=== PATIENT | female | born 1940 | race Caucasian/White ===

== ENCOUNTER → 2018-01-20 11:50 | Outpatient (CLI) | payer MEDICARE, OTHER, SELFPAY ==
--- NOTE | 2018-01-20 11:55 | DI.US.S_ITS ---
PROCEDURE: US PELVIC COMPLETE INDICATIONS: MASS ON CERVIX TECHNIQUE: Real-time scanning was performed of the pelvic organs, with image documentation. Additional endovaginal scanning was necessary due to incomplete visualization of the adnexal and endometrial structures by transabdominal scanning. COMPARISON: CT from 12/27/2009. FINDINGS: Transabdominal scanning: Limited scanning through the kidneys shows no hydronephrosis. No pathologic free abdominal or pelvic fluid. Endovaginal scanning: Uterus: Uterus is normal in size at cm. The endometrium measures 14 mm in combined thickness. There is a 5.5 x 2.7 x 3.3 cm mass in the endometrial canal with central areas of cystic change and internal maxillary on Doppler exam Ovaries: The ovaries are not identified and cannot be evaluated. IMPRESSION: There is a mass in the endometrial canal which correlates to the recent CT finding. It may represent a submucosal pedunculated polyp. Endometrial malignancy cannot be excluded. Metastasis at this location would be very unusual. Consider differentiation with endometrial biopsy. Dictated by: Adarsh lOiva M.D. on 01/20/2018 at 14:51 Approved by: Adarsh Oliva M.D. on 01/20/2018 at 14:58
== END ==
PROVIDERS: PCP Family Medicine; Visit Provider Internal Medicine Hematology & Oncology
DX: N88.8 Other specified noninflammatory disorders of cervix uteri (principal)
CPT/HCPCS: 76830; 76856

== ENCOUNTER 2018-03-18 10:03 | Day surgery (SDC) | payer MEDICARE, OTHER, SELFPAY ==
--- NOTE | 2018-03-18 | PATH_ITS ---
[facility] Accession Number: [id number] . 01 Material submitted: . PART A: ENDOMETRIAL POLYP PART B: ENDOMETRIAL CURETTES . 02 Diagnosis: A. Endometrial Polyp, Procedure Not Specified: Endometrial polyp with features of cystic atrophy (6.5 cm in greatest dimension); negative for glandular hyperplasia, cytologic atypia, and malignancy. . B. Endometrial Curettings: Strips of endometrial glandular epithelium with focal eosinophilic metaplasia; negative for glandular hyperplasia, cytologic atypia, and malignancy. Avulsed portions of metaplastic squamous mucosa; negative for squamous dysplasia and malignancy. Scant endocervical tissue with reactive features; negative for glandular dysplasia and malignancy. [facility]/03/21/2018 . 02 Electronically signed: . Elisa Givens MD, Pathologist NPI- [id number] . 01 Gross description: . (A) Received in formalin, labeled endometrial polyp, is a nguyen-white, rubbery polyp (6.5 x 4.0 x 1.2 cm). The apparent resection margin is inked black. Entirely submitted in cassettes A1-A9. (B) Received in formalin, labeled endometrial curettings, are multiple fragments of red-brown tissue (1.2 x 0.9 x 0.1 cm in aggregate). Filtered an entirely submitted in cassette B1. ([id number]) /FRR . 02 Pathologist provided ICD-10: N84.0 . 02 CPT . 718155, [id number] Performed at: 01 [facility] [address], [place], [place] [id number] MD Dave Elizondo MD Phone: [phone] Performed at: 02 [facility] [address] [place] [id number] MD Josef Owens MD Phone: [phone]
[2018-03-18 10:36] VITALS: BMI 22.8
[2018-03-18 11:18] VITALS: BP 136/80; PULSE 82; RESP 16; TEMP 35.9; O2SAT 96
[2018-03-18] MEDS: LACTATED RINGERS 1,000 ML 42 ML IV (11:22)
[2018-03-18] MEDS: CEFOTETAN 2 GM/50 ML PIGGYBACK IV (12:19)
--- NOTE | 2018-03-18 12:45 | SUR.OPER ---
Lithotomy on padded OR bed, head on pillow, arms secured on padded arm boards at <90 degrees abduction. Legs secured in padded yellow fins stirrups.
[2018-03-18 12:53] VITALS: BP 121/67; PULSE 62; RESP 20; TEMP 36.3; O2SAT 99
[2018-03-18 12:58] VITALS: BP 127/56; PULSE 62; RESP 17; TEMP 36.3; O2SAT 98
--- NOTE | 2018-03-18 12:58 | PM.GYNOP.1 ---
Operative Date/Time/Diagnoses Date of procedure: 03/18/18 Time of procedure: 12:58 Pre-op diagnosis: Endometrial mass Post-op diagnosis: same (Endometrial polyp) Procedure: Procedures Operation Date: 03/18/18 11:30 Actual Procedures Side Surgeon p Hysteroscopy D&C, Polypectomy Chad Flores MD Indications: Endometrial mass on ultrasound Surgeon: Chad Flores Anesthesia Type: General Operative Notes Findings: Large 5 cm x 3 cm area by 3 cm endometrial polyp with some areas of firmness Closure Type: not applicable Specimen(s): endometrial polyp Estimated blood loss (mL): 0 Blood products transfused: none Procedure in detail: The patient was placed supine upon the operating table and anesthetized. She was then placed in the dorsal lithotomy position and examined under anesthesia. Under anesthesia she has felt of a small anterior uterus. The patient was then draped and prepared in the usual fashion. A posterior weighted retractor was set in place in the anterior lip of the cervix grasped with a toothed tenaculum. Uterine cervix was dilated initially with a green dilator. It was then dilated to Hegar 11. Without difficulty. The hysteroscope was placed. A large endometrial polyp was easily visualized. Photographs were taken. The polyp was grasped and slowly extra extruded from the endometrial cavity with a twisting action. This was sent for pathologic exam. A curettage was then performed. Re hysteroscopy showed no remaining tissue of any kind. The patient tolerated the procedure well and was taken to the recovery room in satisfactory condition. Complications: none Post-operative Condition: stable Disposition: PACU Plan for aftercare: Home
[2018-03-18 13:03] VITALS: BP 128/69; PULSE 61; RESP 16; TEMP 36.3; O2SAT 99
[2018-03-18 13:10] VITALS: BP 133/81; PULSE 61; RESP 16; TEMP 36.3; O2SAT 98
[2018-03-18 13:40] VITALS: BP 127/67; PULSE 52; RESP 16; TEMP 36.6; O2SAT 99
== END 2018-03-18 13:58 | disposition home or self-care (01) ==
PROVIDERS: PCP Family Medicine
PROC: 0UDB8ZZ Extraction of Endometrium, Via Natural or Artificial Opening Endoscopic (ICD-10-PCS; CPT 58558; principal; 2018-03-18 11:30)
DX: N84.0 Polyp of corpus uteri (principal); E11.9 Type 2 diabetes mellitus without complications; I10 Essential (primary) hypertension
CPT/HCPCS: 58558; 88305; J1100; J2250; J2405; J2704; J3010

== ENCOUNTER → 2018-03-23 07:56 | Outpatient (CLI) | payer MEDICARE, OTHER, SELFPAY ==
--- NOTE | 2018-03-23 08:51 | DI.CT.S_ITS ---
PROCEDURE: CT CHEST ABD PEL W CON INDICATIONS: restaging TECHNIQUE: After the administration of oral and intravenous contrast, 5 mm thick sections acquired from the lung apices to the symphysis. 5 mm coronal and sagittal reformats were performed, with additional 7 mm coronal MIP reformats through the lungs. For radiation dose reduction, the following was used: automated exposure control, adjustment of mA and/or kV according to patient size. COMPARISON: [facility], CT, CHEST/ABD/PEL WITH CONTRAST, 12/27/2017, 12:28. [facility], [place], PET/CT WHOLE BODY EXTENDED, 04/28/2017, 8:24. [facility], , US PELVIC COMPLETE, 01/20/2018, 12:01. FINDINGS: Image quality: Excellent. CHEST: Lungs and pleura: Severity of radiation pneumonitis in the right hemithorax is decreased. Calcified granuloma at the base of the right middle lobe is unchanged. No new pulmonary nodules. No acute airspace opacities. No pleural effusions or pneumothorax. Central and peripheral airways appear patent and normal in caliber. Mediastinum: Heart size is normal. No pericardial effusion. No recurrent right mediastinal mass or adenopathy. Thoracic aorta and central pulmonary arteries are normal in size. Esophagus is normal in caliber. Small hiatal hernia. Chest wall: Right-sided port with tip in the SVC. Left lumpectomy and axillary node resection again noted. No axillary or supraclavicular adenopathy by size criteria. Thyroid gland shows a 7 mm hypodense nodule in the right lobe, more prominent. ABDOMEN: Solid organs: Liver is normal in size and enhancement. Gallbladder is surgically absent. Biliary system is non dilated. Pancreas enhances normally. The lobulated cystic mass in the tail of pancreas measures 3.1 x 4.5 cm on current study, 2.9 x 4.7 cm on last exam. Spleen is normal in size and enhancement. No adrenal nodules. Kidneys demonstrate normal size and enhancement, without hydronephrosis. Peritoneum and bowel: Bowel loops demonstrate normal wall thickness and caliber. No free fluid or air. Nodes and vessels: No retroperitoneal or mesenteric adenopathy by size criteria. Aorta and inferior vena cava are normal in size. Miscellaneous: No ventral hernias. PELVIS: Genitourinary: Bladder wall thickness is normal. Cervical mass appears unchanged, better imaged on recent pelvic ultrasound. Miscellaneous: No inguinal hernias or adenopathy. Bones: No suspicious bony lesions. Chronic right rib fractures unchanged. No vertebral body compression fractures. IMPRESSION: 1. No evidence of recurrent right mediastinal/hilar mass lesion. No adenopathy by size criteria. Calcified granuloma right middle lobe with no new pulmonary nodules. 2. Interval decrease in degree of right-sided postradiation pneumonitis. 3. Large cystic lesion in the tail of pancreas remains stable. 4. Subcentimeter nodule in the right lobe of thyroid is more prominent, possibly related to partial volume effect. 5. Small hiatal hernia. 6. Partially cystic mass in the cervix, indeterminant. Dictated by: Kirk Lugo M.D. on 03/23/2018 at 9:45 Approved by: Kirk Lugo M.D. on 03/23/2018 at 9:59
== END ==
PROVIDERS: PCP Family Medicine; Visit Provider Internal Medicine Hematology & Oncology
DX: C34.90 Malignant neoplasm of unspecified part of unspecified bronchus or lung (principal); J70.0 Acute pulmonary manifestations due to radiation; K86.2 Cyst of pancreas; E04.1 Nontoxic single thyroid nodule; K44.9 Diaphragmatic hernia without obstruction or gangrene; N88.8 Other specified noninflammatory disorders of cervix uteri
CPT/HCPCS: 71260; 74177; Q9967

== ENCOUNTER → 2018-04-07 10:48 | Outpatient (CLI) | payer MEDICARE, OTHER, SELFPAY ==
[2018-04-07 11:06] LABS: Add Manual Diff / Slide Review NO; Basophils Percent Auto 0.1 % (0-2); Eosinophils Percent Auto 2.5 % (2-4); Hemoglobin 10.6 g/dL (12.0-16.0); Lymphocytes Percent Auto 12.7 % (25-40); Mean Corpuscular HGB Conc 33.1 % (30-36); Mean Corpuscular Hemoglobin 26.7 PG (26-34); Mean Corpuscular Volume 80.7 fL (80-100); Monocytes Percent Auto 6.5 % (3-14); Neutrophils Absolute Auto 4300 /uL (3000-5900); Neutrophils Percent Auto 78.2 % (50-75); Platelet Count 208 X10^3/uL (150-400); Red Blood Cell Count 3.97 X10^6/uL (4.0-5.2); Red Cell Distribution Width 16.7 % (11.6-14.8); White Blood Cell Count 5.4 X10^3/uL (4.5-11.0)
[2018-04-07 11:18] LABS: Alanine Aminotransferase 17 IU/L (9-52); Albumin Globulin Ratio 1.3 (1.0-2.8); Alkaline Phosphatase 61 U/L (38-126); Aspartate Aminotransferase 16 IU/L (14-36); BUN Creatinine Ratio 26.7 (6-22); Bilirubin Total 0.5 mg/dL (0.2-1.3); Blood Urea Nitrogen 16 mg/dL (7-17); Calcium 9.7 mg/dL (8.4-10.2); Carbon Dioxide 32 mmol/L (22-32); Chloride 101 mmol/L (98-107); Estimated Glomerular Filt Rate > 60.0 mL/min (>60); Globulin 3.1 g/dL (1.7-4.1); Glucose 93 mg/dL (80-110); HEMOLYSIS < 15 (0-50); Potassium 4.8 mmol/L (3.4-5.1); Sodium 143 mmol/L (137-145); Total Protein 7.1 g/dL (6.3-8.2)
[2018-04-07 11:48] LABS: Thyroid Stimulating Hormone 7.43 uIU/mL (0.47-4.68)
[2018-04-07 11:54] LABS: T4 Total Thyroxine 7.69 ug/dL (5.5-11.0)
== END ==
PROVIDERS: PCP Family Medicine; Visit Provider Internal Medicine Hematology & Oncology
DX: C34.90 Malignant neoplasm of unspecified part of unspecified bronchus or lung (principal)
CPT/HCPCS: 36415; 80053; 84436; 84443; 85025

== ENCOUNTER → 2018-10-14 09:59 | Outpatient (CLI) | payer MEDICARE, OTHER, SELFPAY ==
--- NOTE | 2018-10-14 10:39 | DI.CT.S_ITS ---
PROCEDURE: CT CHEST ABD PEL W CON INDICATIONS: Restaging non small cell lung cancer TECHNIQUE: After the administration of oral and intravenous contrast, 5 mm thick sections acquired from the lung apices to the symphysis. 5 mm coronal and sagittal reformats were performed, with additional 7 mm coronal MIP reformats through the lungs. For radiation dose reduction, the following was used: automated exposure control, adjustment of mA and/or kV according to patient size. COMPARISON: [facility], CT, THORAX WITH CONTRAST, 07/07/2017, 11:27. [facility], CT, CT OVIEDO, 05/04/2017, 11:03. [facility], CT, PE STUDY (CTA CHEST), 03/11/2017, 10:15. [facility], CT, CT CHEST ABD PEL W CON, 03/23/2018, 9:04. [facility], CT, CHEST/ABD/PEL WITH CONTRAST, 12/27/2017, 12:28. FINDINGS: Image quality: Excellent. CHEST: Lungs and pleura: No acute airspace opacities. There has been a slight interval reduction in the degree of radiation pneumonitis/fibrosis at the right upper lobe with reference to the recent prior studies from 2017 and 2016. No pleural effusions or pneumothorax. Central and peripheral airways appear patent and normal in caliber. Mediastinum: Heart size is normal. No pericardial effusion. No mediastinal or hilar adenopathy by size criteria. Thoracic aorta and central pulmonary arteries are normal in size. Esophagus is normal in caliber. There is a small sliding hiatal hernia. Chest wall: No axillary or supraclavicular adenopathy by size criteria. Thyroid gland is again seen to contain a small cyst at the right mid thyroid lobe, stable over time. No solid thyroid nodule is present. ABDOMEN: Solid organs: Liver is normal in size and enhancement. Gallbladder has been previously resected. Biliary system is non dilated. Pancreas enhances normally. Spleen is normal in size and enhancement. No adrenal nodules. Kidneys demonstrate normal size and enhancement, without hydronephrosis. Peritoneum and bowel: Bowel loops demonstrate normal wall thickness and caliber. No free fluid or air. Nodes and vessels: No retroperitoneal or mesenteric adenopathy by size criteria. Aorta and inferior vena cava are normal in size. Miscellaneous: No ventral hernias. PELVIS: Genitourinary: Bladder wall thickness is normal. Miscellaneous: No inguinal hernias or adenopathy. Mild colonic diverticulosis, without acute diverticulitis. Bones: No suspicious bony lesions. No vertebral body compression fractures. IMPRESSION: 1. 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 No recurrent mass lesion in this area or elsewhere within the chest is found. 2. Stable appearing small right thyroid nodule, no solid thyroid nodule is present. 3. There is a pattern of surgical clips indicating prior cholecystectomy. Within the abdomen and pelvis no metastatic disease is found. Incidental note is made of a small hiatal hernia behind the heart, previously present. 4. Mild colonic diverticulosis without acute diverticulitis. Dictated by: Yash Almaguer M.D. on 10/14/2018 at 15:59 Approved by: Yash Almaguer M.D. on 10/14/2018 at 16:05
[2018-10-14 10:42] LABS: BUN Creatinine Ratio 23.8 (6-22); Blood Urea Nitrogen 19 mg/dL (7-17); Estimated Glomerular Filt Rate > 60.0 mL/min (>60)
== END ==
PROVIDERS: Family Provider Family Medicine; PCP Family Medicine
DX: C34.90 Malignant neoplasm of unspecified part of unspecified bronchus or lung (principal); C50.912 Malignant neoplasm of unspecified site of left female breast; E04.1 Nontoxic single thyroid nodule; K57.90 Diverticulosis of intestine, part unspecified, without perforation or abscess without bleeding; K44.9 Diaphragmatic hernia without obstruction or gangrene; Z90.49 Acquired absence of other specified parts of digestive tract
CPT/HCPCS: 36415; 71260; 74177; 82565; 84520; Q9967

== ENCOUNTER → 2019-04-24 11:20 | Outpatient (CLI) | payer MEDICARE, OTHER, SELFPAY ==
[2019-04-24 12:02] LABS: Add Manual Diff / Slide Review NO; Basophils Absolute Auto 0 /uL (0-100); Basophils Percent Auto 0.3 % (0-2); Eosinophils Absolute Auto 200 /uL (0-450); Eosinophils Percent Auto 4.8 % (2-4); Hematocrit 35.5 % (36-46); Hemoglobin 11.6 g/dL (12.0-16.0); Lymphocytes Absolute Auto 800 /uL (1100-4500); Lymphocytes Percent Auto 16.5 % (25-40); Mean Corpuscular HGB Conc 32.8 % (30-36); Mean Corpuscular Hemoglobin 27.4 PG (26-34); Mean Corpuscular Volume 83.7 fL (80-100); Monocytes Absolute Auto 400 /uL (0-900); Monocytes Percent Auto 7.9 % (3-14); Neutrophils Absolute Auto 3400 /uL (1500-7000); Neutrophils Percent Auto 70.5 % (50-75); Platelet Count 171 X10^3/uL (150-400); Red Blood Cell Count 4.23 X10^6/uL (4.0-5.2); Red Cell Distribution Width 15.4 % (11.6-14.8); White Blood Cell Count 4.8 X10^3/uL (4.5-11.0)
[2019-04-24 12:21] LABS: Alanine Aminotransferase 11 IU/L (9-52); Albumin 4.1 g/dL (3.5-5.0); Albumin Globulin Ratio 1.4 (1.0-2.8); Alkaline Phosphatase 86 U/L (38-126); Aspartate Aminotransferase 19 IU/L (14-36); Bilirubin Total 0.3 mg/dL (0.2-1.3); Blood Urea Nitrogen 21 mg/dL (7-17); Calcium 9.8 mg/dL (8.4-10.2); Carbon Dioxide 30 mmol/L (22-32); Chloride 104 mmol/L (98-107); Estimated Glomerular Filt Rate > 60.0 mL/min (>60); Glucose 80 mg/dL (80-110); HEMOLYSIS < 15 (0-50); Potassium 4.8 mmol/L (3.4-5.1); Sodium 141 mmol/L (137-145); Total Protein 7.1 g/dL (6.3-8.2)
--- NOTE | 2019-04-24 12:30 | DI.CT.S_ITS ---
PROCEDURE: CT CHEST ABD PEL W CON INDICATIONS: lung cancer TECHNIQUE: After the administration of oral and intravenous contrast, 5 mm thick sections acquired from the lung apices to the symphysis. 5 mm coronal and sagittal reformats were performed, with additional 7 mm coronal MIP reformats through the lungs. For radiation dose reduction, the following was used: automated exposure control, adjustment of mA and/or kV according to patient size. COMPARISON: [facility], CT, PE STUDY (CTA CHEST), 03/11/2017, 10:15. [facility], [place], PET/CT WHOLE BODY EXTENDED, 04/28/2017, 8:24. [facility], CT, THORAX WITH CONTRAST, 07/07/2017, 11:27. [facility], CT, CT CHEST ABD PEL W CON, 10/14/2018, 10:56. [facility], CT, CT CHEST ABD PEL W CON, 03/23/2018, 9:04. FINDINGS: Image quality: Excellent. CHEST: Lungs and pleura: No acute airspace opacities are seen that would indicate likelihood of underlying infection. What appears to be post radiation fibrosis is present within the right upper lobe extending inferiorly along the mediastinal border to the upper right hilum, and in this area no growing mass lesion is found. No mediastinal or hilar adenopathy has developed.. No pleural effusions or pneumothorax. Central and peripheral airways appear patent and normal in caliber. Mediastinum: Heart size is normal. No pericardial effusion. No mediastinal or hilar adenopathy by size criteria. Thoracic aorta and central pulmonary arteries are normal in size. Esophagus is normal in caliber. No hiatal hernia. Chest wall: No axillary or supraclavicular adenopathy by size criteria. Thyroid gland appears normal where well seen.. ABDOMEN: Solid organs: Liver is normal in size and enhancement. Again seen within the inferior right hepatic lobe is a subcentimeter nodule with discontinuous peripheral enhancement consistent with hemangioma. Gallbladder has been previously resected. Biliary system is non dilated. Pancreas enhances normally through the uncinate process and pancreatic head and neck. At the pancreatic body there is again noted the cystic structure that has not changed significantly from the first available CT scan showed that lesion, PET/CT scanning 04/28/[address] scanning 03/11/17. Spleen is normal in size and enhancement. No adrenal nodules. Kidneys demonstrate normal size and enhancement, without hydronephrosis. Peritoneum and bowel: Bowel loops demonstrate normal wall thickness and caliber. No free fluid or air. Nodes and vessels: No retroperitoneal or mesenteric adenopathy by size criteria. Aorta and inferior vena cava are normal in size. Miscellaneous: No ventral hernias. PELVIS: Genitourinary: Bladder wall thickness is normal. Miscellaneous: No inguinal hernias or adenopathy. Bones: No suspicious bony lesions. No vertebral body compression fractures. IMPRESSION: 1. 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 2. There has been stable appearance of a pancreatic body cystic structure that measures up to 3.6 x 3.3 cm currently and was present as early as February of 2017 measuring essentially the same size considering differences in technique. 2. Stable appearing subcentimeter hemangioma within the inferior margin of the right hepatic lobe. Dictated by: Yash Almaguer M.D. on 04/24/2019 at 16:58 Approved by: Yash Almaguer M.D. on 04/24/2019 at 17:21
== END ==
PROVIDERS: Family Provider Family Medicine; PCP Family Medicine; Visit Provider Internal Medicine Hematology & Oncology
DX: C34.90 Malignant neoplasm of unspecified part of unspecified bronchus or lung (principal); K86.2 Cyst of pancreas; D18.09 Hemangioma of other sites; Z90.49 Acquired absence of other specified parts of digestive tract
CPT/HCPCS: 36415; 71260; 74177; 80053; 85025; Q9967

== ENCOUNTER → 2019-10-16 13:16 | Outpatient (CLI) | payer MEDICARE, OTHER, SELFPAY ==
[2019-10-16 13:41] LABS: Add Manual Diff / Slide Review NO; Basophils Absolute Auto 0 /uL (0-100); Basophils Percent Auto 0.2 % (0-2); Eosinophils Absolute Auto 200 /uL (0-450); Eosinophils Percent Auto 4.1 % (2-4); Hemoglobin 11.8 g/dL (12.0-16.0); Lymphocytes Absolute Auto 1100 /uL (1100-4500); Lymphocytes Percent Auto 19.3 % (25-40); Mean Corpuscular HGB Conc 33.7 % (30-36); Mean Corpuscular Hemoglobin 28.6 PG (26-34); Mean Corpuscular Volume 84.7 fL (80-100); Monocytes Absolute Auto 600 /uL (0-900); Monocytes Percent Auto 9.9 % (3-14); Neutrophils Absolute Auto 3900 /uL (1500-7000); Neutrophils Percent Auto 66.5 % (50-75); Platelet Count 169 X10^3/uL (150-400); Red Blood Cell Count 4.13 X10^6/uL (4.0-5.2); Red Cell Distribution Width 15.5 % (11.6-14.8); White Blood Cell Count 5.9 X10^3/uL (4.5-11.0)
[2019-10-16 13:59] LABS: Alanine Aminotransferase 11 IU/L (<35); Albumin 4.3 g/dL (3.5-5.0); Albumin Globulin Ratio 1.3 (1.0-2.8); Alkaline Phosphatase 77 U/L (38-126); Aspartate Aminotransferase 21 IU/L (14-36); Bilirubin Total 0.3 mg/dL (0.2-1.3); Blood Urea Nitrogen 20 mg/dL (7-17); Calcium 9.8 mg/dL (8.4-10.2); Carbon Dioxide 29 mmol/L (22-32); Chloride 106 mmol/L (98-107); Estimated Glomerular Filt Rate > 60.0 mL/min (>60); Globulin 3.2 g/dL (1.7-4.1); Glucose 90 mg/dL (80-110); HEMOLYSIS < 15 (0-50); Sodium 142 mmol/L (137-145); Total Protein 7.5 g/dL (6.3-8.2)
[2019-10-16 14:03] LABS: Potassium 5.8 mmol/L (3.4-5.1)
== END ==
PROVIDERS: Family Provider Family Medicine; PCP Family Medicine; Referring Provider Internal Medicine Hematology & Oncology; Visit Provider Internal Medicine Hematology & Oncology
DX: C34.90 Malignant neoplasm of unspecified part of unspecified bronchus or lung (principal)
CPT/HCPCS: 36415; 80053; 85025

== ENCOUNTER → 2019-10-17 12:19 | Outpatient (CLI) | payer MEDICARE, OTHER, SELFPAY ==
--- NOTE | 2019-10-17 12:22 | DI.CT.S_ITS ---
PROCEDURE: CT CHEST ABD PEL W CON INDICATIONS: f/u lung cnacer TECHNIQUE: After the administration of oral and intravenous contrast, 5 mm thick sections acquired from the lung apices to the symphysis. 5 mm coronal and sagittal reformats were performed, with additional 7 mm coronal MIP reformats through the lungs. For radiation dose reduction, the following was used: automated exposure control, adjustment of mA and/or kV according to patient size. COMPARISON: [facility], [place], PET/CT WHOLE BODY EXTENDED, 04/28/2017, 8:24. [facility], CT, PE STUDY (CTA CHEST), 03/11/2017, 10:15. [facility], CT, CT CHEST ABD PEL W CON, 04/24/2019, 12:31. [facility], CT, CT CHEST ABD PEL W CON, 10/14/2018, 10:56. FINDINGS: Image quality: Excellent. CHEST: Lungs and pleura: No acute airspace opacities. Chronic fibrotic change at the medial right upper lobe is again noted with cylindrical bronchiectasis, consistent with prior radiation therapy into that area. No pleural effusions or pneumothorax. Central and peripheral airways appear patent and normal in caliber. Mediastinum: Heart size is normal. No pericardial effusion. No mediastinal or hilar adenopathy by size criteria. Thoracic aorta and central pulmonary arteries are normal in size. Esophagus is normal in caliber. No hiatal hernia. Chest wall: No axillary or supraclavicular adenopathy by size criteria. Thyroid gland appears normal where well seen. Right breast calcifications and left breast calcifications are again noted, left greater than right. ABDOMEN: Solid organs: Liver is normal in size and enhancement. Gallbladder has been previously resected. Biliary system is non dilated. Pancreas enhances normally except in the area of a pancreatic body mass like structure, previously documented on multiple prior CT scans since at least February of 2017. This measures up to 3.9 cm in diameter.. Spleen is normal in size and enhancement. No adrenal nodules. Kidneys demonstrate normal size and enhancement, without hydronephrosis. Peritoneum and bowel: Bowel loops demonstrate normal wall thickness and caliber. No free fluid or air. Nodes and vessels: No retroperitoneal or mesenteric adenopathy by size criteria. Aorta and inferior vena cava are normal in size. Miscellaneous: No ventral hernias. PELVIS: Genitourinary: Bladder wall thickness is normal. Miscellaneous: No inguinal hernias or adenopathy. Bones: No suspicious bony lesions. No vertebral body compression fractures. IMPRESSION: 1. 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 2. No mediastinal or hilar adenopathy. Bilateral breast calcifications are again noted, left greater than right, which presumably are being sequentially evaluated by mammography. However, from the radiology records available for review the most recent bilateral mammogram was listed as being performed 07/06/16. 3. Stable appearance of a mildly lobulated 3.9 cm mass at the pancreatic body, having been present in February of 2017 and having low isotope uptake on PET CT scanning that had been performed 04/28/17. Dictated by: Yash Almaguer M.D. on 10/17/2019 at 14:16 Approved by: Yash Almaguer M.D. on 10/17/2019 at 14:29
== END ==
PROVIDERS: Family Provider Family Medicine; PCP Family Medicine; Referring Provider Family Medicine
DX: C34.90 Malignant neoplasm of unspecified part of unspecified bronchus or lung (principal); K86.9 Disease of pancreas, unspecified; Z90.49 Acquired absence of other specified parts of digestive tract
CPT/HCPCS: 71260; 74177

== ENCOUNTER → 2019-11-09 12:03 | Outpatient (CLI) | payer MEDICARE, OTHER, SELFPAY ==
--- NOTE | 2019-11-09 12:05 | DI.MG.S_ITS ---
BILATERAL DIGITAL SCREENING MAMMOGRAM 3D/2D WITH CAD POST LUMPECTOMY: 11/09/2019 CLINICAL: Routine screening. Personal history of left breast cancer. Family history of breast cancer. Comparison is made to exams dated: 07/06/2016 mammogram, 12/27/2014 mammogram, and 12/15/2013 mammogram - [facility]. There are scattered fibroglandular elements in both breasts. Current study was also evaluated with a Computer Aided Detection (CAD) system. There are benign calcifications in both breasts. There also are benign vascular calcifications in both breasts. Additionally, there are benign post operative findings in the left breast. No significant masses, calcifications, or other findings are seen in either breast. There has been no significant interval change. IMPRESSION: There is no mammographic evidence of malignancy. A 1 year screening mammogram is recommended. This exam was interpreted at Station ID: [id number]. NOTE: For mammograms, a report in lay terms will be sent to the patient. Approximately 15% of breast malignancies will not be visualized mammographically. In the management of a palpable breast mass, a negative mammogram must not discourage biopsy of a clinically suspicious lesion. Electronically Signed By: Emili lozada/abhishek:11/09/2019 20:38:55 copy to: CHACHA PINA letter sent: Normal Exam ACR BI-RADS Category 2: Benign Finding(s) 3342F
== END ==
PROVIDERS: Family Provider Family Medicine; PCP Family Medicine; Referring Provider Internal Medicine Hematology & Oncology; Visit Provider Internal Medicine Hematology & Oncology
DX: Z12.31 Encounter for screening mammogram for malignant neoplasm of breast (principal); Z85.3 Personal history of malignant neoplasm of breast; Z80.3 Family history of malignant neoplasm of breast
CPT/HCPCS: 77063; 77067

== ENCOUNTER → 2020-05-08 13:59 | Outpatient (CLI) | payer MEDICARE, OTHER, SELFPAY ==
--- NOTE | 2020-05-08 14:01 | DI.CT.S_ITS ---
PROCEDURE: CT CHEST ABD PEL W CON INDICATIONS: lung cancer TECHNIQUE: After the administration of oral and intravenous contrast, 5 mm thick sections acquired from the lung apices to the symphysis. 5 mm coronal and sagittal reformats were performed, with additional 7 mm coronal MIP reformats through the lungs. For radiation dose reduction, the following was used: automated exposure control, adjustment of mA and/or kV according to patient size. COMPARISON: [facility], CT, CT CHEST ABD PEL W CON, 10/14/2018, 10:56. [facility], CT, CT CHEST ABD PEL W CON, 03/23/2018, 9:04. [facility], CT, CT CHEST ABD PEL W CON, 10/17/2019, 13:08. [facility], CT, CT CHEST ABD PEL W CON, 04/24/2019, 12:31. FINDINGS: Image quality: Excellent. CHEST: Lungs and pleura: No acute airspace opacities. Post radiation fibrosis is again noted at the medial right upper lobe with mild cylindrical and varicoid bronchiectasis in that area. Additionally, a densely calcified granuloma at the inferior margin of the medial segment right middle lobe is again seen, no exchange operator time. No pleural effusions or pneumothorax. Central and peripheral airways appear patent and normal in caliber. Mediastinum: Heart size is normal. No pericardial effusion. No mediastinal or hilar adenopathy by size criteria. Thoracic aorta and central pulmonary arteries are normal in size. Esophagus is normal in caliber. No hiatal hernia. Port-A-Cath from right-sided approach extends in normal position into the distal SVC. Chest wall: No axillary or supraclavicular adenopathy by size criteria. Thyroid gland appears normal where well seen. ABDOMEN: Solid organs: Liver is normal in size and enhancement. Gallbladder has been resected . Biliary system is non dilated. Pancreas enhances normally except for presence of the previously identified moderately lobulated 3.8 x 3.9 cm exophytic mid pancreatic body mass, present since March of 2017 as previously described. Spleen is normal in size and enhancement. No adrenal nodules. Kidneys demonstrate normal size and enhancement, without hydronephrosis. Peritoneum and bowel: Bowel loops demonstrate normal wall thickness and caliber. No free fluid or air. Nodes and vessels: No retroperitoneal or mesenteric adenopathy by size criteria. Aorta and inferior vena cava are normal in size. Miscellaneous: No ventral hernias. PELVIS: Genitourinary: Bladder wall thickness is normal. Miscellaneous: No inguinal hernias or adenopathy. Bones: No suspicious bony lesions. No vertebral body compression fractures. IMPRESSION: Stable appearing examination without evidence of metastatic disease or recurrent neoplasm. 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 Note is made of a pancreatic mass that has been present since March of 2017, and no new lesion has developed elsewhere. Dictated by: Yash Almaguer M.D. on 05/08/2020 at 16:52 Approved by: Yash Almaguer M.D. on 05/08/2020 at 16:59
[2020-05-08 14:17] LABS: Add Manual Diff / Slide Review NO; Basophils Absolute Auto 0 /uL (0-100); Basophils Percent Auto 0.2 % (0-2); Eosinophils Absolute Auto 300 /uL (0-450); Eosinophils Percent Auto 5.6 % (2-4); Lymphocytes Absolute Auto 1100 /uL (1100-4500); Lymphocytes Percent Auto 17.9 % (25-40); Mean Corpuscular HGB Conc 33.2 % (30-36); Mean Corpuscular Hemoglobin 27.8 PG (26-34); Mean Corpuscular Volume 83.7 fL (80-100); Monocytes Absolute Auto 400 /uL (0-900); Monocytes Percent Auto 7.4 % (3-14); Neutrophils Absolute Auto 4100 /uL (1500-7000); Neutrophils Percent Auto 68.9 % (50-75); Platelet Count 185 X10^3/uL (150-400); Red Cell Distribution Width 14.8 % (11.6-14.8); White Blood Cell Count 5.9 X10^3/uL (4.5-11.0)
[2020-05-08 14:35] LABS: Alanine Aminotransferase 10 IU/L (<35); Albumin 4.3 g/dL (3.5-5.0); Albumin Globulin Ratio 1.4 (1.0-2.8); Alkaline Phosphatase 68 U/L (38-126); Aspartate Aminotransferase 23 IU/L (14-36); BUN Creatinine Ratio 17.9 (6-22); Bilirubin Total 0.5 mg/dL (0.2-1.3); Blood Urea Nitrogen 12 mg/dL (7-17); Calcium 9.5 mg/dL (8.4-10.2); Carbon Dioxide 30 mmol/L (22-32); Chloride 105 mmol/L (98-107); Estimated Glomerular Filt Rate > 60.0 mL/min (>60); Glucose 110 mg/dL (80-110); HEMOLYSIS < 15 (0-50); Sodium 140 mmol/L (137-145); Total Protein 7.3 g/dL (6.3-8.2)
== END ==
PROVIDERS: Family Provider Family Medicine; PCP Family Medicine; Referring Provider Family Medicine; Visit Provider Internal Medicine Hematology & Oncology
DX: C34.90 Malignant neoplasm of unspecified part of unspecified bronchus or lung (principal); J70.1 Chronic and other pulmonary manifestations due to radiation; Y84.2 Radiological procedure and radiotherapy as the cause of abnormal reaction of the patient, or of later complication, without mention of misadventure at the time of the procedure
CPT/HCPCS: 36415; 71260; 74177; 80053; 85025; Q9967

== ENCOUNTER 2020-05-28 14:59 | Emergency (ER) | payer MEDICARE, OTHER, SELFPAY ==
[2020-05-28 15:34] LABS: Bacteria Urine None Seen
[2020-05-28 15:40] LABS: Culture Indicated Urine Cult Not Indicated; RBC Urine 0-1/HPF (0-5/HPF); WBC Urine 0-1/HPF (0-5/HPF)
--- NOTE | 2020-05-28 16:25 | ED.FEMALEGU ---
HPI - Female Genitourinary <Cristina ShanksTERRI - Last Filed: 05/28/20 21:37> General Chief complaint: Urogenital-Female Stated complaint: URINARY PROBLEM Time Seen by Provider: 05/28/20 15:13 Source: patient Mode of arrival: Ambulatory History of Present Illness HPI Narrative: 79yo female presents to the ED for something fell out of my vagina. Patient states last night she got up from the bed and she felt something fall out of her vagina, she went to the bathroom and notice a small white ball, she states she pushed it back. She denies any pain, discharge, bleeding, fevers chills, history of prolapse, nausea, vomiting, diarrhea, denies abdominal pain, or any other concerns. She states she has had 3 vaginal births in the past. Patient states she still feels something weird in her vagina at this time. Related Data Home Medications Medication Instructions Recorded Confirmed Fluticasone Propionate (FLONASE) 0.05 mg NS PRN PRN #0 02/01/13 11/14/19 MULTIVITAMIN (#MULTIPLE VITAMINS) 1 cap PO Q DAY #0 02/01/13 11/14/19 metformin [Glucophage] 500 mg PO BIDCC #0 02/01/13 11/14/19 acetaminophen [Tylenol Extra 500 mg PO Q4HP PRN #0 07/10/17 11/14/19 Strength] doxepin 100 mg PO HS #0 07/10/17 11/14/19 simvastatin 20 mg PO HS #0 07/10/17 11/14/19 aspirin 81 mg PO QDAY PRN #0 08/04/17 11/14/19 albuterol sulfate [Ventolin HFA] 1 puff INH Q4H PRN 01/19/18 11/14/19 Previous Rx's Medication Instructions Recorded atenolol 50 mg PO BID #90 tab 08/09/18 Allergies Allergy/AdvReac Type Severity Reaction Status Date / Time carboplatin Allergy Severe Anaphylaxis Verified 03/18/18 10:31 adhesive Allergy Intermediate RASH Verified 03/18/18 10:31 Penicillins Allergy Mild Rash Verified 03/18/18 10:32 codeine AdvReac Unknown NIGHTMARES, Verified 03/18/18 10:31 PANIC hydrocodone AdvReac Unknown NIGHTMARES, Verified 03/18/18 10:31 PANIC, VH Sulfa (Sulfonamide AdvReac Unknown NAUSEA Verified 03/18/18 10:31 Antibiotics) Review of Systems <TERRI Rosario - Last Filed: 05/28/20 21:37> Review of Systems Narrative: REVIEW OF SYSTEMS: GENERAL: Denies fever or chills. HENT: No head trauma. CARDIOVASCULAR: No chest pain. RESPIRATORY: No shortness of breath or cough. GASTROINTESTINAL: No nausea, vomiting, or abdominal pain, see HPI. GENITOURINARY: Reports dysuria, states she feels like something is in her vagina, see HPI. MUSCULOSKELETAL: No trauma. INTEGUMENTARY: No rash, lesions, or pruritus. NEURO: Unusual behavior changes. Patient History <TERRI Rosario - Last Filed: 05/28/20 21:37> Medical History Cancer of left breast (Acute) Diabetes (Acute) Hepatitis C (Acute) History of prosthetic unicompartmental arthroplasty of both knees (Acute) HTN (hypertension) (Acute) Hyperlipidemia (Acute) Left bundle branch block (LBBB) (Acute) Non-small cell lung cancer (Acute) Port-A-Cath in place (Acute) Right humeral fracture (Acute) Surgical History History of carpal tunnel release (Acute) Hx of cholecystectomy (Acute) Hx of dilation and curettage (Acute) Hx of tonsillectomy (Acute) Hx of tubal ligation (Acute) Exam <TERRI Rosario - Last Filed: 05/28/20 21:37> Initial Vital Signs Initial Vital Signs: PHYSICAL EXAMINATION: GENERAL: Well groomed, alert, and cooperative. Answers questions promptly and appropriately. Vital signs noted. HENT: Normocephalic, atraumatic. Hearing intact. Oral mucosa is pink and moist. EYES: Conjunctiva pink, sclera white, no periorbital swelling. CARDIOVASCULAR: S1 and S2 sounds normal. Regular rate and rhythm, no murmurs, clicks, or bruits. No pedal edema. RESPIRATORY: Normal respiratory rate, trachea midline, airway patent. No stridor, nasal flaring or accessory muscle use. Lungs are clear in all simmons without wheeze, rhonchi, or crackles. GASTROINTESTINAL: Bowel sounds normoactive. Abdomen is soft and non-tender. No organomegaly, no palpable masses. GENITALURINARY: No flank tenderness. Pelvic exam performed with RNKaylen present. Cervix visualized, slightly to the left. No significant prolapse palpated, a urinary prolapse visualized or palpated. No abnormal discharge, no cervical motion tenderness. MUSCULOSKELETAL: Normal gait and coordination. Equal tone and mass bilaterally. EXTREMITIES: CMS intact. SKIN: Warm, dry, soft, appropriate color for ethnicity. No lesions, rashes, or wounds to visualized areas. NEURO: Alert and Oriented X 3. Good coordination. No ataxia, or sensory deficits, or cognitive issues. PSYCH: Appropriate affect and mood. Course <TERRI Rosario - Last Filed: 05/28/20 21:37> Orders Ordered: ED Orders 05/28/20 15:25 Urine Microscopic Stat Consultations Consultation #1: Discussed plan of care with Dr. Anne. <Chad Anne MD - Last Filed: 06/25/20 03:10> Orders Ordered: ED Orders 05/28/20 15:25 Urine Microscopic Stat MDM - Female Genitourinary <TERRI Rosario - Last Filed: 05/28/20 21:37> Medical Records Attestation: I reviewed the patient's medical records. Lab Data Attestation: I reviewed the patient's lab results. Labs: Lab Results 05/28/20 Range/Units 15:25 Urine RBC 0-1/hpf (0-5/HPF) Urine WBC 0-1/hpf (0-5/HPF) Urine Bacteria None seen (None) Ur Culture Indicated? Cult not indicated Urine Dip Bedside Urine Glucose Negative Bedside Urine Bilirubin - Negative Bedside Urine Ketone - Negative Urine Specific Turney 1.030 Bedside Urine Occult Blood - Negative Bedside Urine pH 6.0 Bedside Urine Protein + 30 Bedside Urine Urobilinogen - Negative Bedside Urine Nitrite - Negative Bedside Urine Leukocytes - Negative Esterase MDM Narrative Medical decision making narrative: History and examination initial concerning for prolapse, no prolapse seen or felt on examination. However due to patient's complaint, she was referred to vending machine host/hostess for further evaluation. Patient able to urinate without any difficulty, no signs of infection. No discharge. Return precautions given for new or worsening symptoms. Patient agreed to plan of care verbalized understanding. <Chad Anne MD - Last Filed: 06/25/20 03:10> Lab Data Labs: Lab Results 05/28/20 Range/Units 15:25 Urine RBC 0-1/hpf (0-5/HPF) Urine WBC 0-1/hpf (0-5/HPF) Urine Bacteria None seen (None) Ur Culture Indicated? Cult not indicated Urine Dip Bedside Urine Glucose Negative Bedside Urine Bilirubin - Negative Bedside Urine Ketone - Negative Urine Specific Turney 1.030 Bedside Urine Occult Blood - Negative Bedside Urine pH 6.0 Bedside Urine Protein + 30 Bedside Urine Urobilinogen - Negative Bedside Urine Nitrite - Negative Bedside Urine Leukocytes - Negative Esterase Discharge Plan Departure Patient Disposition: Home Clinical Impression: Uterine anomaly Discharge Date/Time: 05/28/20 16:16 Instructions: DI for Vaginal Prolapse Activity Restrictions/Additional Instructions: Thank you for entrusting me with your care today. As discussed, no bladder or vaginal prolapse was discovered today. However, your symptoms are consistent with a prolapse. Please follow-up with a customer care assistant listed below. Return emergency department for any new or worsening symptoms. Your urinalysis was negative for any concerning symptoms. Prescriptions: No Action metformin [Glucophage] 500 MG tablet 500 mg PO BIDCC Qty: 0 RF: 0 Fluticasone Propionate (FLONASE) 0.05 mg NS PRN PRN (Reason: Allergy Symptoms) Qty: 0 RF: 0 MULTIVITAMIN (#MULTIPLE VITAMINS) 1 cap PO Q DAY Qty: 0 RF: 0 acetaminophen [Tylenol Extra Strength] 500 MG tablet 500 mg PO Q4HP PRN (Reason: pain) Qty: 0 RF: 0 doxepin 100 MG capsule 100 mg PO HS Qty: 0 RF: 0 simvastatin 20 MG tablet 20 mg PO HS Qty: 0 RF: 0 aspirin 81 MG tablet,delayed release (DR/EC) 81 mg PO QDAY PRN (Reason: minor pains) Qty: 0 RF: 0 albuterol sulfate [Ventolin HFA] 90 MCG/PUFF HFA aerosol inhaler 1 puff INH Q4H PRN (Reason: Allergy Symptoms) RF: 0 atenolol 50 mg Tablet 50 mg PO BID Qty: 90 RF: 0 Referrals: Dolly Li MD [Physician] - Kong Centeno DO [Primary Care Provider] -
== END 2020-05-28 16:16 | disposition home or self-care (01) ==
PROVIDERS: Emergency Provider Nurse Practitioner; Family Provider Family Medicine; PCP Family Medicine
DX: N94.9 Unspecified condition associated with female genital organs and menstrual cycle (principal)
CPT/HCPCS: 81003; 81015; 99281; 99283

== ENCOUNTER 2020-08-17 20:05 | Emergency (ER) | payer MEDICARE, OTHER, SELFPAY ==
[2020-08-17 20:10] VITALS: BP 198/100; PULSE 78; RESP 18; TEMP 36.6; O2SAT 97; BMI 22.6
--- NOTE | 2020-08-17 20:15 | ED_ITS ---
HPI - Animal Bite General Chief Complaint: Animal Bite Stated Complaint: Cat bite right wrist Time Seen by Provider: 08/17/20 20:11 Source: patient and family Mode of arrival: Ambulatory Limitations: no limitations History of Present Illness HPI narrative: 79-year-old female former smoker with history of hypertension presents with family in the chief complaint of a cat bite on her right wrist. She brought her CT in from outside and was attempting to dry it off as it had been raining and it got wet. The cat was trying to get away and bit her on her right wrist. As far she knows the cat has all which shots, has been acting normally and can be observed for the next 10 days. She does not think her tetanus is current. She denies any other scratches or bites. She does have a listed minor allergy to the penicillin but states she has recently been on amoxicillin with no difficulty. She denies any exposure to known COVID and has had no fever chills or respiratory complaints MD complaint: animal bite Onset (ago): hour(s) Animal: cat Description of animal: household pet Mechanism: bite Pain description: sharp Severity scale (1-10): 2 Context: playing with animal Treatments prior to arrival: wound dressing(s) Related Data Patient tetanus UTD: No Home Medications Medication Instructions Recorded Confirmed Fluticasone Propionate (FLONASE) 0.05 mg NS PRN PRN #0 02/01/13 07/22/20 MULTIVITAMIN (#MULTIPLE VITAMINS) 1 cap PO Q DAY #0 02/01/13 07/22/20 metformin [Glucophage] 500 mg PO BIDCC #0 02/01/13 07/22/20 acetaminophen [Tylenol Extra 500 mg PO Q4HP PRN #0 07/10/17 07/22/20 Strength] doxepin 100 mg PO HS #0 07/10/17 07/22/20 simvastatin 20 mg PO HS #0 07/10/17 07/22/20 aspirin 81 mg PO QDAY PRN #0 08/04/17 07/22/20 albuterol sulfate [Ventolin HFA] 1 puff INH Q4H PRN 01/19/18 07/22/20 Previous Rx's Medication Instructions Recorded atenolol 50 mg PO BID #90 tab 08/09/18 amoxicillin-pot clavulanate 1 tab PO BID #20 tab 08/17/20 [Augmentin] Allergies Allergy/AdvReac Type Severity Reaction Status Date / Time carboplatin Allergy Severe Anaphylaxis Verified 07/22/20 15:04 adhesive Allergy Intermediate RASH Verified 07/22/20 15:04 codeine AdvReac Unknown NIGHTMARES, Verified 07/22/20 15:04 PANIC hydrocodone AdvReac Unknown NIGHTMARES, Verified 07/22/20 15:04 PANIC, VH Sulfa (Sulfonamide AdvReac Unknown NAUSEA Verified 07/22/20 15:04 Antibiotics) Review of Systems Constitutional Constitutional: Denies chills, Denies fatigue, Denies fever(s), Denies frequent falls, Denies lethargy and Denies weakness Eyes Eyes: Denies change in vision, Denies eye discharge, Denies irritation and Denies loss of vision ENT Ears, Nose, Mouth, and Throat: Denies change in voice, Denies dizziness, Denies neck pain, Denies sore throat and Denies throat swelling Cardiovascular Cardiovascular: Denies chest pain, Denies irregular heart rhythm, Denies lightheadedness, Denies palpitations, Denies dyspnea, Denies dyspnea on exertion and Denies orthopnea Respiratory Respiratory: Denies cough, Denies dyspnea, Denies dyspnea on exertion and Denies wheezing Gastrointestinal Gastrointestinal: Denies abdominal pain, Denies change in bowel habits, Denies diarrhea, Denies nausea and Denies vomiting Musculoskeletal Musculoskeletal: Denies neck pain and Denies numbness Integumentary/Breasts Skin/Breast: Denies pruritus, Denies erythema, Denies rash and Reports wounds Neurologic Neurologic: Denies behavioral changes, Denies confusion, Denies dizziness, Denies frequent falls, Denies loss of vision, Denies numbness and Denies weakness Psychiatric Psychiatric: Denies anxiety, Denies behavioral changes, Denies confusion, Denies depression, Denies homicidal ideation and Denies suicidal ideation Endocrine Endocrine: Denies fatigue, Denies flushing and Denies palpitations Hematologic/Lymphatic Hematologic/Lymphatic: Denies easy bruising Allergic/Immunologic Allergic/Immunologic: Denies urticaria, Denies throat swelling and Denies wheezing Patient History Medical History (Updated 08/17/20 @ 20:34 by Jaime Hernandez DO) Cancer of left breast Diabetes Hepatitis C History of prosthetic unicompartmental arthroplasty of both knees HTN (hypertension) Hyperlipidemia Left bundle branch block (LBBB) Non-small cell lung cancer Port-A-Cath in place Right humeral fracture Surgical History History of carpal tunnel release Hx of cholecystectomy Hx of dilation and curettage Hx of tonsillectomy Hx of tubal ligation Social History household members: family Smoking Status: Former smoker Smoking Status: Former smoker Exam Narrative Exam Narrative: GEN: AOx3 and in mild distress EYES: Pupils are equal, round, and reactive to light and accommodation. Extraoccular muscles are intact bilaterally. There is no subconjunctival hemorrhage or exudate. CHEST: Lungs are clear to auscultation bilaterally and free of wheezes, rales, or rhonchi. Heart rate is regular rhythm, there are no murmurs, clicks, rubs, or gallops. There is no chest wall tenderness. ABD: Abdomen is soft and nontender. There is no guarding or rebound. Bowel sounds are normal in all 4 quadrants. There is no mass or organomegaly. EXT: 2 small puncture wounds on the dorsum of right wrist, no active bleeding, no palpable foreign body, neurovascularly intact, otherwise Full painless ROM of all extremities with no loss of sensation or strength. SKIN: Warm, pink, and dry. No erythema or rash Initial Vital Signs Initial Vital Signs: Vital Signs Temperature 97.8 F 08/17/20 20:10 Pulse Rate 78 08/17/20 20:10 Respiratory Rate 18 08/17/20 20:10 Blood Pressure 198/100 H 08/17/20 20:10 Pulse Oximetry 97 08/17/20 20:10 Course Orders Ordered: ED Orders 08/17/20 20:14 XR wrist RT 2V Stat Discontinued Medications Amoxicillin/Clavulanate Potassium (Amoxicillin/Clav 875/125 Mg) 1 tab PO NOW ONE Stop: 08/17/20 20:12 Last Admin: 08/17/20 20:24 Dose: 1 tab Documented by: KRISTA Diphtheria/Tetanus/Acell Pertussis (Tet,Diph,Pertuss(Acell),Vac/Pf 0.5 Ml Syringe) 0.5 ml IM .ONCE ONE Stop: 08/17/20 20:12 Last Admin: 08/17/20 20:24 Dose: 0.5 ml Documented by: KRISTA Vital Signs Vital signs: Vital Signs - 8 hr 08/17/20 20:10 08/17/20 20:47 Temperature 97.8 F Pulse Rate 78 59 L Respiratory Rate 18 16 Blood Pressure 198/100 H 160/70 H Pulse Oximetry 97 99 MDM - Animal Bite Imaging Data Wrist for FB: Radiologist's Impression: [address] [id number] ReportSigned Patient: Arlen Spicer KMR#: [id number]: 1Acct:[id number]/Sex: 79 / FDate of Service: 08/17/20Loc: EDAccession Number: [id number] Procedure: XR wrist RT 2V Ordering Provider: Jaime Hernandez D.O. PROCEDURE: XR WRIST RT 2V INDICATIONS: cat bite, foreign body? TECHNIQUE: 2 views of the wrist were acquired. COMPARISON: [facility], WRIST MINIMUM 3 VIEWS LEFT, 03/21/2008, 13:15. FINDINGS: Bones: No fracture or dislocation. There are degenerative changes of the 1st carpometacarpal joint with subchondral sclerosis and joint space narrowing. The bones appear demineralized. Scaphoid view: No scaphoid fracture identified. Soft tissues: No suspicious soft tissue calcifications. Vasculature has atherosclerotic calcifications. IMPRESSION: 1. No acute traumatic abnormality of the right wrist. 2. Degenerative changes consistent with osteoarthritis. Dictated by: Puma Urena M.D. on 08/17/2020 at 20:42 Approved by: Puma Urena M.D. on 08/17/2020 at 20:45 [facility] Narrative Medical decision making narrative: BP is elevated, but she has no symptoms such as ARELLANO, blurred vision, CP, SOB, Abdominal pain or other. She has not had her HTN meds yet tonight. Patient and family are in complete understanding of diagnosis, return precautions, and plan. Questions answered to their apparent satisfaction. Discharge Plan Departure Patient Disposition: Home Clinical Impression: Cat bite Qualifiers: Encounter type: initial encounter Qualified Code(s): W55.01XA - Bitten by cat, initial encounter Instructions: DI for Cat Bite Activity Restrictions/Additional Instructions: *You have been diagnosed with [cat bite right wrist] *What to do: *Take medications as directed: Prescription sent to [facility] at your request. Be sure to get it filled tomorrow *Follow up with your primary care provider in 2-3 days, call for an appointment. Let them know you were seen in the Emergency Department and that we ask that you be seen in follow up *Return to ER if you should have any new, worsening or concerning symptoms such as increased swelling, redness, pain, red streaks, fever >101F, shaking chills, drainage, or other bothersome symptoms Radiographic study has been interpreted by an emergency physician. The official diagnosis by radiology will be performed within the next 24 hours and should there be any change in outcome we will notify you of how to proceed. Prescriptions: New amoxicillin-pot clavulanate [Augmentin] 875-125 mg tablet 1 tab PO BID Qty: 20 RF: 0 No Action metformin [Glucophage] 500 MG tablet 500 mg PO BIDCC Qty: 0 RF: 0 Fluticasone Propionate (FLONASE) 0.05 mg NS PRN PRN (Reason: Allergy Symptoms) Qty: 0 RF: 0 MULTIVITAMIN (#MULTIPLE VITAMINS) 1 cap PO Q DAY Qty: 0 RF: 0 acetaminophen [Tylenol Extra Strength] 500 MG tablet 500 mg PO Q4HP PRN (Reason: pain) Qty: 0 RF: 0 doxepin 100 MG capsule 100 mg PO HS Qty: 0 RF: 0 simvastatin 20 MG tablet 20 mg PO HS Qty: 0 RF: 0 aspirin 81 MG tablet,delayed release (DR/EC) 81 mg PO QDAY PRN (Reason: minor pains) Qty: 0 RF: 0 albuterol sulfate [Ventolin HFA] 90 MCG/PUFF HFA aerosol inhaler 1 puff INH Q4H PRN (Reason: Allergy Symptoms) RF: 0 atenolol 50 mg Tablet 50 mg PO BID Qty: 90 RF: 0 Referrals: Kong Centeno DO [Primary Care Provider] -
[2020-08-17] MEDS: TET,DIPH,PERTUSS(ACELL),VAC/PF 0.5 ML SYRINGE IM (20:24)
[2020-08-17] MEDS: AMOXICILLIN/CLAV 875/125 MG 1 TAB PO (20:24)
[2020-08-17 20:47] VITALS: BP 160/70; PULSE 59; RESP 16; O2SAT 99
== END 2020-08-17 20:49 | disposition home or self-care (01) ==
PROVIDERS: Emergency Provider Emergency Medicine; Family Provider Family Medicine; PCP Family Medicine
DX: S61.551A Open bite of right wrist, initial encounter (principal); W55.01XA Bitten by cat, initial encounter; Z79.82 Long term (current) use of aspirin; I10 Essential (primary) hypertension; E78.5 Hyperlipidemia, unspecified; Z23 Encounter for immunization
CPT/HCPCS: 73100; 90471; 99281; 99283; 90715

== ENCOUNTER → 2020-11-15 11:21 | Outpatient (CLI) | payer MEDICARE, OTHER, SELFPAY ==
--- NOTE | 2020-11-15 11:23 | DI.MG.S_ITS ---
BILATERAL DIGITAL SCREENING MAMMOGRAM 3D/2D WITH CAD: 11/15/2020 CLINICAL: Routine screening. Personal history of left breast cancer. Family history of breast cancer. Comparison is made to exams dated: 11/09/2019 mammogram, 07/06/2016 mammogram, and 12/27/2014 mammogram - [facility]. There are scattered fibroglandular elements in both breasts. Current study was also evaluated with a Computer Aided Detection (CAD) system. There are benign calcifications in both breasts. There also are benign vascular calcifications in both breasts. Additionally, there are benign post operative findings in the left breast. No significant masses, calcifications, or other findings are seen in either breast. There has been no significant interval change. IMPRESSION: BENIGN There is no mammographic evidence of malignancy. A 1 year screening mammogram is recommended. This exam was interpreted at Station ID: [id number]. NOTE: For mammograms, a report in lay terms will be sent to the patient. Approximately 15% of breast malignancies will not be visualized mammographically. In the management of a palpable breast mass, a negative mammogram must not discourage biopsy of a clinically suspicious lesion. Electronically Signed By: Dexter Mao M.D., jr/abhishek:11/15/2020 11:53:16 copy to: CHACHA PINA letter sent: Normal Exam ACR BI-RADS Category 2: Benign Finding(s) 3342F
[2020-11-15 11:38] LABS: Add Manual Diff / Slide Review NO; Basophils Absolute Auto 0 /uL (0-100); Basophils Percent Auto 0.3 % (0-2); Eosinophils Absolute Auto 200 /uL (0-450); Eosinophils Percent Auto 2.7 % (2-4); Hematocrit 36.3 % (36-46); Lymphocytes Absolute Auto 900 /uL (1100-4500); Lymphocytes Percent Auto 14.6 % (25-40); Mean Corpuscular Hemoglobin 27.3 PG (26-34); Mean Corpuscular Volume 82.6 fL (80-100); Monocytes Absolute Auto 400 /uL (0-900); Monocytes Percent Auto 6.1 % (3-14); Neutrophils Absolute Auto 4700 /uL (1500-7000); Neutrophils Percent Auto 76.3 % (50-75); Platelet Count 179 X10^3/uL (150-400); Red Blood Cell Count 4.39 X10^6/uL (4.0-5.2); Red Cell Distribution Width 14.9 % (11.6-14.8); White Blood Cell Count 6.2 X10^3/uL (4.5-11.0)
[2020-11-15 11:51] LABS: Alanine Aminotransferase 11 IU/L (<35); Albumin 4.4 g/dL (3.5-5.0); Albumin Globulin Ratio 1.4 (1.0-2.8); Alkaline Phosphatase 85 U/L (38-126); Aspartate Aminotransferase 20 IU/L (14-36); BUN Creatinine Ratio 27.9 (6-22); Bilirubin Total 0.4 mg/dL (0.2-1.3); Blood Urea Nitrogen 19 mg/dL (7-17); Calcium 9.8 mg/dL (8.4-10.2); Carbon Dioxide 27 mmol/L (22-32); Chloride 103 mmol/L (98-107); Estimated Glomerular Filt Rate > 60.0 mL/min (>60); Globulin 3.1 g/dL (1.7-4.1); Glucose 91 mg/dL (80-110); HEMOLYSIS < 15 (0-50); Potassium 4.3 mmol/L (3.4-5.1); Sodium 140 mmol/L (137-145); Total Protein 7.5 g/dL (6.3-8.2)
--- NOTE | 2020-11-15 12:37 | DI.CT.S_ITS ---
PROCEDURE: CT CHEST ABD PEL W CON INDICATIONS: Follow-up adenocarcinoma of the lung TECHNIQUE: After the administration of oral and intravenous contrast, 5 mm thick sections acquired from the lung apices to the symphysis. 5 mm coronal and sagittal reformats were performed, with additional 7 mm coronal MIP reformats through the lungs. For radiation dose reduction, the following was used: automated exposure control, adjustment of mA and/or kV according to patient size. COMPARISON: [facility], CT, CT CHEST ABD PEL W CON, 05/08/2020, 14:53. FINDINGS: Image quality: Excellent. CHEST: Lungs and pleura: Dense post treatment fibrotic changes in the right suprahilar region are stable. Calcified granuloma medial segment right middle lobe. Stable 4.6 mm nodule anterior basal segment right lower lobe (5/177). Stable 2.7 mm nodule along the inferior right posterior basal segment (5/226). Due to respiratory motion, a nodule measuring roughly 3-4 mm is present in the posterior right lower lobe (5/201), and is also stable. 2.8 mm nodule in the medial left lower lobe (5/149) is unchanged. There are no new suspicious nodules or masses. Findings are superimposed on mild emphysema. Trace right posterior pleural thickening or very small effusion, new since the prior study there is traction bronchiectasis in the medial right upper lobe within fibrotic changes. Elsewhere the airways are normal caliber. Mediastinum: Several small right paratracheal mediastinal lymph nodes are unchanged, one of the largest in the precarinal region is 8 mm in short axis, stable. There is confluent soft tissue in the right suprahilar region, but no new hilar adenopathy. The heart is mildly enlarged and demonstrates moderately dense coronary calcification. Moderate aortic arch calcification. Thoracic aorta and central pulmonary arteries are normal in size. There is mild traction on the upper esophagus secondary to suprahilar fibrosis. Moderate size hiatal hernia is present, stable size.. Chest wall: Right chest MediPort is present. There are extensive left breast calcifications and left axillary calcifications. Left breast skin is thickened and there are likely radiation changes. No axillary or supraclavicular adenopathy by size criteria. Thyroid gland is stable, normal . ABDOMEN: Solid organs: Liver is stable with mild intrahepatic biliary dilatation. The gallbladder is surgically absent. Extrahepatic common bile duct is slightly dilated at 11 mm though stable compared to the prior study. Lobulated, finally septated cystic mass in the pancreatic tail measures about 3.8 by 4.0 cm, stable. The main pancreatic duct proximally is minimally dilated, stable. No adrenal nodules. Normal spleen and kidneys. Peritoneum and bowel: Bowel loops demonstrate normal wall thickness and caliber. Occasional diverticulosis throughout all portions of the colon. There is a normal appendix. Small bowel is not obstructed. Gastric antrum and proximal duodenum are mildly distended in the proximal 2nd portion the duodenum demonstrates of chronic strictured segment which has not changed significantly since 12/27/17. No free fluid or air. Nodes and vessels: No retroperitoneal or mesenteric adenopathy by size criteria. Aorta and inferior vena cava are normal in size. There is heavy abdominal aortic and branch artery calcification. Miscellaneous: No ventral hernias. PELVIS: Genitourinary: Bladder wall thickness is normal. Uterus and ovaries are normal. Miscellaneous: No inguinal hernias or adenopathy. Bones: There are severe degenerative changes at the pubic symphysis, at L5-S1, and mild degenerative changes of the discs of the midthoracic spine. There is a new compression fracture of T5 without posterior element retropulsion. No suspicious bony lesions. IMPRESSION: 1. Stable post treatment findings in the right medial upper lobe with fibrotic changes affecting the airways and underlying esophagus. 2. Several stable small nodules in the right lung and one on the left which are presumably granulomas. 3. There is a new T5 compression fracture. Correlate clinically and consider vertebroplasty if this is symptomatic. 4. There is a new trace right pleural effusion, nonspecific. 5. Chronic mild biliary dilatation post cholecystectomy. 6. Stable cystic pancreatic tail mass measuring 4 cm. 7. 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 Correlate with early satiety. 8. Heavy atherosclerotic calcification. 9. Probable left breast post treatment changes. Dictated by: Emili Weisntein M.D. on 11/15/2020 at 14:31 Approved by: Emili Weinstein M.D. on 11/15/2020 at 15:21
== END ==
PROVIDERS: Family Provider Family Medicine; PCP Family Medicine; Referring Provider Internal Medicine; Visit Provider Internal Medicine
DX: Z12.31 Encounter for screening mammogram for malignant neoplasm of breast (principal); C34.90 Malignant neoplasm of unspecified part of unspecified bronchus or lung; R91.8 Other nonspecific abnormal finding of lung field; S22.059A Unspecified fracture of T5-T6 vertebra, initial encounter for closed fracture; J90 Pleural effusion, not elsewhere classified; K86.2 Cyst of pancreas; Z85.3 Personal history of malignant neoplasm of breast
CPT/HCPCS: 36415; 71260; 74177; 77063; 77067; 80053; 85025

== ENCOUNTER → 2020-11-27 13:04 | Outpatient (CLI) | payer MEDICARE, OTHER, SELFPAY | PROVIDERS: Family Provider Family Medicine; PCP Family Medicine; Referring Provider Family Medicine; Visit Provider Internal Medicine | DX: M81.0 Age-related osteoporosis without current pathological fracture (principal); Z78.0 Asymptomatic menopausal state; S22.050A Wedge compression fracture of T5-T6 vertebra, initial encounter for closed fracture; C34.90 Malignant neoplasm of unspecified part of unspecified bronchus or lung; E11.9 Type 2 diabetes mellitus without complications; Z85.3 Personal history of malignant neoplasm of breast; Z87.891 Personal history of nicotine dependence | CPT/HCPCS: 77080 ==

== ENCOUNTER → 2021-02-12 10:57 | Outpatient (CLI) | payer MEDICARE, OTHER, SELFPAY ==
[2021-02-12 11:27] LABS: Alanine Aminotransferase 10 IU/L (<35); Albumin 4.2 g/dL (3.5-5.0); Albumin Globulin Ratio 1.3 (1.0-2.8); Alkaline Phosphatase 72 U/L (38-126); Aspartate Aminotransferase 21 IU/L (14-36); BUN Creatinine Ratio 34.4 (6-22); Bilirubin Total 0.5 mg/dL (0.2-1.3); Blood Urea Nitrogen 21 mg/dL (7-17); Calcium 9.8 mg/dL (8.4-10.2); Carbon Dioxide 28 mmol/L (22-32); Chloride 105 mmol/L (98-107); Estimated Glomerular Filt Rate > 60.0 mL/min (>60); Globulin 3.2 g/dL (1.7-4.1); Glucose 89 mg/dL (80-110); HEMOLYSIS < 15 (0-50); Potassium 4.2 mmol/L (3.4-5.1); Sodium 141 mmol/L (137-145); Total Protein 7.4 g/dL (6.3-8.2)
[2021-02-12 11:43] LABS: Add Manual Diff / Slide Review NO; Basophils Absolute Auto 0 /uL (0-100); Basophils Percent Auto 0.2 % (0-2); Eosinophils Absolute Auto 100 /uL (0-450); Eosinophils Percent Auto 3.2 % (2-4); Hematocrit 36.2 % (36-46); Hemoglobin 11.9 g/dL (12.0-16.0); Lymphocytes Absolute Auto 800 /uL (1100-4500); Mean Corpuscular HGB Conc 32.8 % (30-36); Mean Corpuscular Hemoglobin 26.9 PG (26-34); Monocytes Absolute Auto 300 /uL (0-900); Monocytes Percent Auto 6.8 % (3-14); Neutrophils Absolute Auto 3300 /uL (1500-7000); Neutrophils Percent Auto 72.8 % (50-75); Platelet Count 158 X10^3/uL (150-400); Red Blood Cell Count 4.41 X10^6/uL (4.0-5.2); Red Cell Distribution Width 15.4 % (11.6-14.8); White Blood Cell Count 4.5 X10^3/uL (4.5-11.0)
--- NOTE | 2021-02-12 12:17 | DI.CT.S_ITS ---
PROCEDURE: CT CHEST ABD PEL W CON INDICATIONS: Lung cancer TECHNIQUE: After the administration of oral and intravenous contrast, axial sections acquired from the supraclavicular neck to the pubic symphysis. Coronal and sagittal reformats were performed. For radiation dose reduction, the following was used: automated exposure control, adjustment of mA and/or kV according to patient size. COMPARISON:[facility], CT, CHEST/ABD/PEL WITH CONTRAST, 12/27/2017, 12:28. [facility], CT, CT CHEST ABD PEL W CON, 11/15/2020, 12:45. [facility], CT, CT CHEST ABD PEL W CON, 05/08/2020, 14:53. FINDINGS: Image quality: Excellent. CHEST: Lower Neck: No enlarged lymph nodes. Thyroid: Asymmetric in size, smaller at the left thyroid lobe but a definite right-sided thyroid nodule is not seen. Axillae: No enlarged lymph nodes. Chest Wall: Unremarkable except for thickening of the cutaneous margin of the left breast, as has been previously the case on recent prior CT scanning, potentially a manifestation of radiation therapy in that area.. Lungs and Airways: No consolidation or new suspicious nodules. There is a 5 x 6 mm nodule within the anterior right middle lobe at the right lower lung, medially. Additionally, fibrotic change at the medial right upper lobe is consistent with prior radiation therapy. Pleura: No pneumothorax or pleural effusions. Presumably Heart: Heart size is normal. No pericardial effusion. Thoracic Vessels: The aorta and pulmonary arteries demonstrate normal size. Mediastinum and Reena: No enlarged lymph nodes. Esophagus: No wall thickening. Mild hiatal hernia. ABDOMEN: Liver: Unremarkable. Gallbladder: Has been previously resected Biliary ducts: Unremarkable. Pancreas: A mass lesion measuring up to 4.1 x 4.4 cm is again seen projecting anteriorly from the pancreatic midbody. This is best seen on series 2, image 63 and has not enlarged from recent comparison CT scanning and also a more remote past comparison CT 12/27/17. This measures 42 Hounsfield units, and could represent a coincidental benign mass. Spleen: Unremarkable. Adrenal Glands: Unremarkable. Kidneys and Ureters: Unremarkable. Stomach and Bowel: Stomach, small bowel loops, and colon are unremarkable. Peritoneum: No abnormal intraperitoneal fluid. No free air. Ventral Wall: No hernia. Abdominal Nodes: No retroperitoneal or mesenteric adenopathy by size criteria. Vessels: Aorta and inferior vena cava are normal in size. PELVIS: Pelvic Organs: Unremarkable. Bladder: Unremarkable. Pelvic Nodes: No enlarged lymph nodes. Miscellaneous: No inguinal hernias are seen. Bones: Prior T5 mild anterior wedge compression fracture in October of this year. New finding of mild similar appearing T6 wedge compression fracture without visualized osteolytic or blastic bone lesions at these 2 sites. IMPRESSION: 1. Stable appearance of a small pulmonary nodule anterior right middle lobe. Stable appearance of cutaneous thickening anterior left breast. Underlying left breast tissue calcifications are prominent. Please correlate for prior radiation therapy into this area. 2. Expected post radiation fibrosis medial right upper lobe. No mediastinal or hilar adenopathy is seen. 3. Within the midbody of the pancreas projecting anteriorly there is a stable appearing solid mass, measuring up to 4.1 x 4.4 cm and stable in size over time from November 2017 and earlier. Suspect benign etiology given this history. 4. New compression fracture at the T6 level of the thoracic spine. A prior T5 compression fracture had been present. No osteolytic or blastic bone lesion. Please correlate for whether this could represent a sequela of radiation therapy through that area. Dictated by: Yash Almaguer M.D. on 02/12/2021 at 14:31 Approved by: Yash Almaguer M.D. on 02/12/2021 at 14:56
== END ==
PROVIDERS: Family Provider Family Medicine; PCP Family Medicine; Referring Provider Internal Medicine; Visit Provider Internal Medicine
DX: Z08 Encounter for follow-up examination after completed treatment for malignant neoplasm (principal); Z85.118 Personal history of other malignant neoplasm of bronchus and lung; J70.1 Chronic and other pulmonary manifestations due to radiation; R91.1 Solitary pulmonary nodule; R92.1 Mammographic calcification found on diagnostic imaging of breast; K86.9 Disease of pancreas, unspecified; M48.54XA Collapsed vertebra, not elsewhere classified, thoracic region, initial encounter for fracture
CPT/HCPCS: 36415; 71260; 74177; 80053; 85025

== ENCOUNTER 2021-04-23 11:07 | Inpatient (IN) | payer MEDICARE, OTHER, SELFPAY ==
[2021-04-23] VITALS (24 sets, daily range): BP systolic 118–174; BP diastolic 56–99; PULSE 26–91; RESP 15–24; TEMP 36.1–36.9; O2SAT 84–99; BMI 23.6
--- NOTE | 2021-04-23 | DI.RAD.S_ITS ---
PROCEDURE: XR HIP W PEL IF DONE LT 2V INDICATIONS: ORIF LEFT HIP TECHNIQUE: 3 spot fluoroscopic images of the hip were acquired. COMPARISON: [facility], CT, CT PEL WO CON, 04/23/2021, 12:55. [facility], CR, XR HIP W PEL IF DONE LT 2V, 04/23/2021, 11:17. FINDINGS: Intraoperative spot fluoroscopic images demonstrate placement of a gamma nail device in the left proximal femur for fixation of the previously seen fracture. The hardware demonstrates expected alignment. Overlying postoperative findings are seen. IMPRESSION: Internal fixation of the previously seen left proximal femoral fracture with expected alignment. Dictated by: Sergio Lima M.D. on 04/23/2021 at 20:39 Approved by: Sergio Lima M.D. on 04/23/2021 at 20:42
--- NOTE | 2021-04-23 11:13 | DI.RAD.S_ITS ---
PROCEDURE: XR CHEST 1V INDICATIONS: pre-op TECHNIQUE: One view of the chest was acquired. COMPARISON: [facility], , CHEST 1 VIEW, 07/12/2017, 18:50. FINDINGS: Surgical changes and devices: Right chest wall Port-A-Cath tip is in SVC. Surgical clips are noted in left axilla and left hilar region. Lungs and pleura: Masslike consolidation in right upper lung field is seen. Scarring/atelectasis involving medial aspect of right upper lobe is also seen. No pleural effusions or pneumothorax. Mediastinum: Mediastinal contours appear normal. Heart size is normal. Bones and chest wall: No suspicious bony lesions. Overlying soft tissues appear unremarkable. IMPRESSION: Masslike consolidation in right upper lung field and right upper lobes scattering/atelectasis. No gross pneumothorax. Dictated by: Girish Aguilar M.D. on 04/23/2021 at 12:23 Approved by: Girish Aguilar M.D. on 04/23/2021 at 12:24
--- NOTE | 2021-04-23 11:13 | DI.RAD.S_ITS ---
PROCEDURE: XR HIP W PEL IF DONE LT 2V INDICATIONS: fall, pain TECHNIQUE: AP pelvis with lateral view(s) of the left hip(s). COMPARISON: None. FINDINGS: Bones: No fractures or dislocations. Moderate bilateral hip joint osteoarthritic changes are seen. No evidence of avascular necrosis of femoral head. Moderate bilateral sacroiliac joint osteoarthritic changes also noted. Pelvic ring appears intact. No suspicious bony lesions. Soft tissues: The visualized bowel gas pattern is normal. No suspicious soft tissue calcifications. IMPRESSION: No gross acute pelvic or hip fracture. No hip dislocation. Moderate bilateral hip joint osteoarthritis. No evidence of avascular necrosis of femoral head. Dictated by: Girish Aguilar M.D. on 04/23/2021 at 12:22 Approved by: Girish Aguilar M.D. on 04/23/2021 at 12:23
[2021-04-23] MEDS: HYDROMORPHONE 0.5 MG INJ IV ×3 (11:22→12:48)
[2021-04-23 11:43] LABS: Add Manual Diff / Slide Review NO; Basophils Absolute Auto 0 /uL (0-100); Basophils Percent Auto 0.2 % (0-2); Eosinophils Absolute Auto 100 /uL (0-450); Eosinophils Percent Auto 2.4 % (2-4); Hematocrit 36.6 % (36-46); Hemoglobin 12.2 g/dL (12.0-16.0); Lymphocytes Absolute Auto 600 /uL (1100-4500); Lymphocytes Percent Auto 10.5 % (25-40); Mean Corpuscular HGB Conc 33.2 % (30-36); Mean Corpuscular Hemoglobin 27.1 PG (26-34); Mean Corpuscular Volume 81.6 fL (80-100); Monocytes Absolute Auto 300 /uL (0-900); Monocytes Percent Auto 5.8 % (3-14); Neutrophils Absolute Auto 4300 /uL (1500-7000); Neutrophils Percent Auto 81.1 % (50-75); Platelet Count 165 X10^3/uL (150-400); Red Blood Cell Count 4.49 X10^6/uL (4.0-5.2); Red Cell Distribution Width 15.4 % (11.6-14.8); White Blood Cell Count 5.3 X10^3/uL (4.5-11.0)
[2021-04-23 11:52] LABS: Alanine Aminotransferase 12 IU/L (<35); Albumin 3.9 g/dL (3.5-5.0); Albumin Globulin Ratio 1.3 (1.0-2.8); Alkaline Phosphatase 77 U/L (38-126); Aspartate Aminotransferase 21 IU/L (14-36); BUN Creatinine Ratio 33.3 (6-22); Bilirubin Total 0.4 mg/dL (0.2-1.3); Blood Urea Nitrogen 17 mg/dL (7-17); Calcium 9.5 mg/dL (8.4-10.2); Carbon Dioxide 28 mmol/L (22-32); Chloride 107 mmol/L (98-107); Estimated Glomerular Filt Rate > 60.0 mL/min (>60); Glucose 102 mg/dL (80-110); HEMOLYSIS < 15 (0-50); Potassium 4.6 mmol/L (3.4-5.1); Sodium 140 mmol/L (137-145); Total Protein 6.9 g/dL (6.3-8.2)
--- NOTE | 2021-04-23 12:06 | ED.FALL ---
HPI - Fall General Chief Complaint: Fall Stated Complaint: GLF Lt. hip pain Time Seen by Provider: 04/23/21 11:13 Source: patient Mode of arrival: EMS Related Data Home Medications Medication Instructions Recorded Confirmed Fluticasone Propionate (FLONASE) 0.05 mg NS PRN PRN #0 02/01/13 02/19/21 MULTIVITAMIN (#MULTIPLE VITAMINS) 1 cap PO Q DAY #0 02/01/13 02/19/21 metformin 500 mg tablet 500 mg PO BIDCC #0 02/01/13 02/19/21 (Glucophage) acetaminophen 500 mg tablet 500 mg PO Q4HP PRN #0 07/10/17 02/19/21 (Tylenol Extra Strength) doxepin 100 mg capsule 100 mg PO HS #0 07/10/17 02/19/21 simvastatin 20 mg tablet 20 mg PO HS #0 07/10/17 02/19/21 aspirin 81 mg tablet,delayed 81 mg PO QDAY PRN #0 08/04/17 02/19/21 release albuterol sulfate 90 mcg/actuation 1 puff INH Q4H PRN 01/19/18 02/19/21 aerosol inhaler (Ventolin HFA) Previous Rx's Medication Instructions Recorded atenolol 50 mg tablet 50 mg PO BID #90 tab 08/09/18 Allergies Allergy/AdvReac Type Severity Reaction Status Date / Time carboplatin Allergy Severe Anaphylaxis Verified 04/23/21 11:13 adhesive Allergy Intermediate RASH Verified 04/23/21 11:13 codeine AdvReac Unknown NIGHTMARES, Verified 04/23/21 11:13 PANIC hydrocodone AdvReac Unknown NIGHTMARES, Verified 04/23/21 11:13 PANIC, VH Sulfa (Sulfonamide AdvReac Unknown NAUSEA Verified 04/23/21 11:13 Antibiotics) Patient History Medical History (Updated 11/20/20 @ 14:59 by Chad Alvarez MD) Cancer of left breast Diabetes Hepatitis C History of prosthetic unicompartmental arthroplasty of both knees HTN (hypertension) Hyperlipidemia Left bundle branch block (LBBB) Non-small cell lung cancer Port-A-Cath in place Right humeral fracture Surgical History History of carpal tunnel release Hx of cholecystectomy Hx of dilation and curettage Hx of tonsillectomy Hx of tubal ligation Social History household members: family Smoking Status: Former smoker Smoking Status: Former smoker alcohol intake frequency: other Substance Use Type: does not use Exam Initial Vital Signs Initial Vital Signs: Vital Signs Temperature 97.9 F 04/23/21 11:10 Pulse Rate 61 04/23/21 11:10 Respiratory Rate 15 04/23/21 11:10 Blood Pressure 144/69 H 04/23/21 11:10 Pulse Oximetry 99 04/23/21 11:10 Course Orders Ordered: ED Orders 04/23/21 11:13 XR chest 1V Stat XR hip w pel if done LT 2V Stat 04/23/21 11:14 EKG-12 Lead Stat 04/23/21 11:20 COVID19 - ADMIT ([employer] swab/PCR) Stat 04/23/21 11:35 Complete Blood Count AUTO DIFF Stat Comprehensive Metabolic Panel Stat Hydromorphone HCl (Hydromorphone 0.5 Mg Inj) 0.5 mg IV Q15MIN PRN PRN Reason: Pain, Last Admin: 04/23/21 11:22 Dose: 0.5 mg Documented by: EKATERINA Vital Signs Vital signs: Vital Signs - 8 hr 04/23/21 11:10 Temperature 97.9 F Pulse Rate 61 Respiratory Rate 15 Blood Pressure 144/69 H Pulse Oximetry 99 MDM - Fall Lab Data Result diagrams: 04/23/21 11:35 04/23/21 11:35 Labs: Lab Results 04/23/21 04/23/21 Range/Units 11:35 11:35 WBC 5.3 (4.5-11.0) X10^3/uL RBC 4.49 (4.0-5.2) X10^6/uL Hgb 12.2 (12.0-16.0) g/dL Hct 36.6 (36-46) % MCV 81.6 (80-100) fL MCH 27.1 (26-34) PG MCHC 33.2 (30-36) % RDW 15.4 H (11.6-14.8) % Plt Count 165 (150-400) X10^3/uL Neut % (Auto) 81.1 H (50-75) % Lymph % (Auto) 10.5 L (25-40) % [place] % (Auto) 5.8 (3-14) % Eos % (Auto) 2.4 (2-4) % Baso % (Auto) 0.2 (0-2) % Neut # (Auto) 4300 (5921-7269) /uL Lymph # (Auto) 600 L (3872-2696) /uL [place] # (Auto) 300 (0-900) /uL Eos # (Auto) 100 (0-450) /uL Baso # (Auto) 0 (0-100) /uL Sodium 140 (137-145) mmol/L Potassium 4.6 (3.4-5.1) mmol/L Chloride 107 (98-107) mmol/L Carbon Dioxide 28 (22-32) mmol/L BUN 17 (7-17) mg/dL Creatinine 0.51 L (0.52-1.04) mg/dL Estimated GFR > 60.0 (>60) mL/min BUN/Creatinine Ratio 33.3 H (6-22) Glucose 102 (80-110) mg/dL Calcium 9.5 (8.4-10.2) mg/dL Total Bilirubin 0.4 (0.2-1.3) mg/dL AST 21 (14-36) IU/L ALT 12 (<35) IU/L Alkaline Phosphatase 77 (38-126) U/L Total Protein 6.9 (6.3-8.2) g/dL Albumin 3.9 (3.5-5.0) g/dL Globulin 3.0 (1.7-4.1) g/dL Albumin/Globulin Ratio 1.3 (1.0-2.8) Discharge Plan Departure Prescriptions: No Action metformin [Glucophage] 500 MG tablet 500 mg PO BIDCC Qty: 0 RF: 0 Fluticasone Propionate (FLONASE) 0.05 mg NS PRN PRN (Reason: Allergy Symptoms) Qty: 0 RF: 0 MULTIVITAMIN (#MULTIPLE VITAMINS) 1 cap PO Q DAY Qty: 0 RF: 0 acetaminophen [Tylenol Extra Strength] 500 MG tablet 500 mg PO Q4HP PRN (Reason: pain) Qty: 0 RF: 0 doxepin 100 MG capsule 100 mg PO HS Qty: 0 RF: 0 simvastatin 20 MG tablet 20 mg PO HS Qty: 0 RF: 0 aspirin 81 MG tablet,delayed release (DR/EC) 81 mg PO QDAY PRN (Reason: minor pains) Qty: 0 RF: 0 albuterol sulfate [Ventolin HFA] 90 MCG/PUFF HFA aerosol inhaler 1 puff INH Q4H PRN (Reason: Allergy Symptoms) RF: 0 atenolol 50 mg Tablet 50 mg PO BID Qty: 90 RF: 0 Referrals: Kong Centeno DO [Primary Care Provider] -
--- NOTE | 2021-04-23 12:25 | ED_ITS ---
HPI - Fall General Chief Complaint: Fall Stated Complaint: GLF Lt. hip pain Time Seen by Provider: 04/23/21 11:13 Source: patient Mode of arrival: EMS History of Present Illness HPI Narrative: 80-year-old woman who lives with her son with a history of dementia, breast cancer, lung cancer, hepatitis-C, currently on aspirin no other anticoagulants, hypertension, diabetes, hyperlipidemia who suffered a mechanical fall today landing on her left hip. Events surrounding the fall are somewhat unclear given her dementia however it does not seem to be a syncopal related episode. She does not complain of any recent fevers cough cold, chills, chest pain, palpitations, abdominal pain, diarrhea, vomiting or any changes to mobility recently. Related Data Home Medications Medication Instructions Recorded Confirmed Fluticasone Propionate (FLONASE) 0.05 mg NS PRN PRN #0 02/01/13 04/23/21 MULTIVITAMIN (#MULTIPLE VITAMINS) 1 cap PO Q DAY #0 02/01/13 02/19/21 metformin 500 mg tablet 500 mg PO BIDCC #0 02/01/13 04/23/21 (Glucophage) acetaminophen 500 mg tablet 500 mg PO Q4HP PRN #0 07/10/17 04/23/21 (Tylenol Extra Strength) doxepin 100 mg capsule 100 mg PO HS #0 07/10/17 04/23/21 simvastatin 20 mg tablet 20 mg PO HS #0 07/10/17 02/19/21 aspirin 81 mg tablet,delayed 81 mg PO QDAY PRN #0 08/04/17 02/19/21 release albuterol sulfate 90 mcg/actuation 1 puff INH Q4H PRN 01/19/18 04/23/21 aerosol inhaler (Ventolin HFA) Previous Rx's Medication Instructions Recorded atenolol 50 mg tablet 50 mg PO BID #90 tab 08/09/18 Allergies Allergy/AdvReac Type Severity Reaction Status Date / Time carboplatin Allergy Severe Anaphylaxis Verified 04/23/21 18:14 adhesive Allergy Intermediate RASH Verified 04/23/21 18:14 codeine AdvReac Unknown NIGHTMARES, Verified 04/23/21 18:14 PANIC hydrocodone AdvReac Unknown NIGHTMARES, Verified 04/23/21 18:14 PANIC, VH Sulfa (Sulfonamide AdvReac Unknown NAUSEA Verified 04/23/21 18:14 Antibiotics) Review of Systems Review of Systems Narrative: Remainder of complete review of systems is otherwise unremarkable except for that included in the HPI. Patient History Medical History (Updated 04/23/21 @ 18:09 by Osmar Laird DO) Cancer of left breast Diabetes Hepatitis C Hip fracture History of prosthetic unicompartmental arthroplasty of both knees HTN (hypertension) Hyperlipidemia Left bundle branch block (LBBB) Non-small cell lung cancer Paroxysmal atrial fibrillation Port-A-Cath in place Right humeral fracture Surgical History History of carpal tunnel release Hx of cholecystectomy Hx of dilation and curettage Hx of tonsillectomy Hx of tubal ligation Social History household members: family Smoking Status: Former smoker Smoking Status: Former smoker alcohol intake frequency: other Substance Use Type: does not use Exam Narrative Exam Narrative: General: Healthy appearing, in pain positioned with her left hip up and knee flexed. Confused and cooperative HEENT: Moist mucous membranes, normal sclera with reactive pupils, Respiratory: Lungs are clear to auscultation, no wheezing no rales no rhonchi. Full and symmetrical air movement Chest: No tenderness to palpation along the axial skeleton . Cardiac: Regular rate and rhythm no murmurs no bruits Abdomen: Soft, nontender, good bowel tones, no flank pain Skin: Warm and dry, no rashes. No contusions or abrasions Neurologic: Grossly neurologically intact with no obvious asymmetries or abnormalities Extremities: Left hip is tender without obvious contusion hematoma or abrasion. Most comfortable with hip in slight flexion. Neurovascularly intact distally, well perfused Psych: Memory issues, minimal insight, fluent speech Initial Vital Signs Initial Vital Signs: Vital Signs Temperature 97.9 F 04/23/21 11:10 Pulse Rate 61 04/23/21 11:10 Respiratory Rate 15 04/23/21 11:10 Blood Pressure 144/69 H 04/23/21 11:10 Pulse Oximetry 99 04/23/21 11:10 Course Orders Ordered: ED Orders 04/23/21 11:13 XR chest 1V Stat XR hip w pel if done LT 2V Stat 04/23/21 11:14 EKG-12 Lead Stat 04/23/21 11:20 COVID19 - ADMIT ([employer] ASSISTANT swab/PCR) Stat 04/23/21 11:35 Complete Blood Count AUTO DIFF Stat Comprehensive Metabolic Panel Stat 04/23/21 12:31 CT pelvis wo con Stat Hydromorphone HCl (Hydromorphone 0.5 Mg Inj) 0.5 mg IV Q15MIN PRN PRN Reason: Pain, Last Admin: 04/23/21 12:48 Dose: 0.5 mg Documented by: Admin: 04/23/21 12:30 Dose: 0.5 mg Documented by: Admin: 04/23/21 11:22 Dose: 0.5 mg Documented by: EKATERINA Lactated Ringer's (Lactated Ringers) 1,000 mls @ 42 mls/hr IV CONT VALERIE Last Admin: 04/23/21 18:52 Dose: 42 mls/hr Documented by: MARGARET Vital Signs Vital signs: Vital Signs - 8 hr 04/23/21 11:10 04/23/21 12:25 04/23/21 12:45 Temperature 97.9 F Pulse Rate 61 55 L 26 L Respiratory Rate 15 20 20 Blood Pressure 144/69 H 146/71 H 146/70 H Pulse Oximetry 99 96 96 04/23/21 13:17 04/23/21 14:00 04/23/21 14:40 Temperature Pulse Rate 56 L 61 Respiratory Rate 15 Blood Pressure 125/66 156/82 H Pulse Oximetry 94 96 84 L 04/23/21 14:50 04/23/21 15:06 04/23/21 15:30 Temperature Pulse Rate 59 L 91 H Respiratory Rate 16 Blood Pressure 168/67 H 174/99 H Pulse Oximetry 96 97 95 04/23/21 16:00 Temperature Pulse Rate 73 Respiratory Rate Blood Pressure 138/61 Pulse Oximetry MDM - Fall Lab Data Result diagrams: 04/23/21 11:35 04/23/21 11:35 Labs: Lab Results 04/23/21 04/23/21 04/23/21 Range/Units 11:20 11:35 11:35 WBC 5.3 (4.5-11.0) X10^3/uL RBC 4.49 (4.0-5.2) X10^6/uL Hgb 12.2 (12.0-16.0) g/dL Hct 36.6 (36-46) % MCV 81.6 (80-100) fL MCH 27.1 (26-34) PG MCHC 33.2 (30-36) % RDW 15.4 H (11.6-14.8) % Plt Count 165 (150-400) X10^3/uL Neut % (Auto) 81.1 H (50-75) % Lymph % (Auto) 10.5 L (25-40) % [place] % (Auto) 5.8 (3-14) % Eos % (Auto) 2.4 (2-4) % Baso % (Auto) 0.2 (0-2) % Neut # (Auto) 4300 (1264-8208) /uL Lymph # (Auto) 600 L (2262-3044) /uL [place] # (Auto) 300 (0-900) /uL Eos # (Auto) 100 (0-450) /uL Baso # (Auto) 0 (0-100) /uL Sodium 140 (137-145) mmol/L Potassium 4.6 (3.4-5.1) mmol/L Chloride 107 (98-107) mmol/L Carbon Dioxide 28 (22-32) mmol/L BUN 17 (7-17) mg/dL Creatinine 0.51 L (0.52-1.04) mg/dL Estimated GFR > 60.0 (>60) mL/min BUN/Creatinine Ratio 33.3 H (6-22) Glucose 102 (80-110) mg/dL Calcium 9.5 (8.4-10.2) mg/dL Total Bilirubin 0.4 (0.2-1.3) mg/dL AST 21 (14-36) IU/L ALT 12 (<35) IU/L Alkaline Phosphatase 77 (38-126) U/L Total Protein 6.9 (6.3-8.2) g/dL Albumin 3.9 (3.5-5.0) g/dL Globulin 3.0 (1.7-4.1) g/dL Albumin/Globulin Ratio 1.3 (1.0-2.8) SARS-CoV-2 (PCR) Negative (Negative) Urine Dip Bedside Urine Glucose Negative Bedside Urine Bilirubin - Negative Bedside Urine Ketone - Negative Urine Specific [place] 1.030 Bedside Urine Occult Blood - Negative Bedside Urine pH 6.0 Bedside Urine Protein + 30 Bedside Urine Urobilinogen - Negative Bedside Urine Nitrite - Negative Bedside Urine Leukocytes - Negative Esterase Imaging Data Xray hip: My Impression: Concern for left femoral neck fracture Radiologist's Impression: FINDINGS: Bones: No fractures or dislocations. Moderate bilateral hip joint osteoarthritic changes are seen. No evidence of avascular necrosis of femoral head. Moderate bilateral sacroiliac joint osteoarthritic changes also noted. Pelvic ring appears intact. No suspicious bony lesions. Soft tissues: The visualized bowel gas pattern is normal. No suspicious soft tissue calcifications. IMPRESSION: No gross acute pelvic or hip fracture. No hip dislocation. Moderate bilateral hip joint osteoarthritis. No evidence of avascular necrosis of femoral head. Dictated by: Girish Aguilar M.D. on 04/23/2021 at 12:22 Chest x-ray: Radiologist's Impression: FINDINGS: Surgical changes and devices: Right chest wall Port-A-Cath tip is in SVC. Surgical clips are noted in left axilla and left hilar region. Lungs and pleura: Masslike consolidation in right upper lung field is seen. Scarring/atelectasis involving medial aspect of right upper lobe is also seen. No pleural effusions or pneumothorax. Mediastinum: Mediastinal contours appear normal. Heart size is normal. Bones and chest wall: No suspicious bony lesions. Overlying soft tissues appear unremarkable. IMPRESSION: Masslike consolidation in right upper lung field and right upper lobes scattering/atelectasis. No gross pneumothorax. Dictated by: Girish Aguilar M.D. on 04/23/2021 at 12:23 ct pelvis/hip: Radiologist's Impression: FINDINGS: Image quality: Excellent. Bones: There is a intertrochanteric fracture with minimal displacement and mild angulation. Pelvic rings are intact. No fracture in visualized lower lumbar spine or sacrum. Soft tissues: No mass or hematoma. Visualized visceral structures in pelvis are normal. There is a Morelos catheter in the urinary bladder. IMPRESSION: Intertrochanteric left femoral fracture. Dictated by: Jessie Watt M.D. on 04/23/2021 at 13:15 ECG Data Interpretation: Sinus bradycardia at a rate of 57 Left bundle branch block with left axis deviation No acute ischemic changes MDM Narrative Medical decision making narrative: 80-year-old woman with some memory loss lives at home with her son mechanical fall suffering of left femoral intertrochanteric fracture. Reviewed with maria luz Klein. Due to her age, diabetes, hyperlipidemia and hypertension he asks that medicine be the admitting service and ortho will consult. Patient in center notified of plans. Will contact hospitalist service. Discharge Plan Departure Patient Disposition: Admitted As Inpatient Clinical Impression: Closed hip fracture Qualifiers: Encounter type: initial encounter Laterality: left Qualified Code(s): S72.002A - Fracture of unspecified part of neck of left femur, initial encounter for closed fracture Admit Date/Time: 04/23/21 16:05 Admit Provider: Osmar Laird
[2021-04-23 12:31] LABS: COVID19 - ADMIT (NP swab/PCR) Negative (Negative)
--- NOTE | 2021-04-23 12:31 | DI.CT.S_ITS ---
PROCEDURE: CT PEL WO CON INDICATIONS: ? L fem neck fracture TECHNIQUE: Noncontrast 3 mm axial sections acquired through the bony pelvis, with coronal and sagittal reformatting. COMPARISON: [facility], CR, XR HIP W PEL IF DONE LT 2V, 04/23/2021, 11:17. FINDINGS: Image quality: Excellent. Bones: There is a intertrochanteric fracture with minimal displacement and mild angulation. Pelvic rings are intact. No fracture in visualized lower lumbar spine or sacrum. Soft tissues: No mass or hematoma. Visualized visceral structures in pelvis are normal. There is a Morelos catheter in the urinary bladder. IMPRESSION: Intertrochanteric left femoral fracture. Dictated by: Jessie Watt M.D. on 04/23/2021 at 13:15 Approved by: Jessie Watt M.D. on 04/23/2021 at 13:37
--- NOTE | 2021-04-23 16:51 | P.HP_ITS ---
History of Present Illness History of Present Illness Date Patient Seen: 04/23/21 Chief complaint: GLF Lt. hip pain Narrative: This is an 80-year-old female with a past medical history of stage III lung adenocarcinoma status post chemo and radiation, breast cancer, hypertension, dementia, hepatitis-C, diabetes, and hyperlipidemia who presented after a ground level fall complaining of left hip pain. In the emergency room, the patient was mildly hypertensive, her o2 is documented at 84% on room air, unclear circumstances regarding this. She was 95% on 2L. Laboratory evaluation including CBC and CMP were largely unremarkable. COVID-19 testing was negative. EKG showed a left bundle branch block, with sinus bradycardia with no grossly apparent changes compared to 2017 though her p robable LVH is more notable on this EKG. Hip imaging revealed a left femoral intertrochanteric fracture. Chest x-ray performed showed a right upper lobe masslike consolidation consistent with her history of lung adenocarcinoma. Orthopedic surgery was consulted in the emergency room Patient History Medical History Cancer of left breast Diabetes Hepatitis C Hip fracture History of prosthetic unicompartmental arthroplasty of both knees HTN (hypertension) Hyperlipidemia Left bundle branch block (LBBB) Non-small cell lung cancer Port-A-Cath in place Right humeral fracture Surgical History History of carpal tunnel release Hx of cholecystectomy Hx of dilation and curettage Hx of tonsillectomy Hx of tubal ligation Family & Social History Social History: household members family Safety & Behavioral: Feels Safe in Current Yes Environment Been Physically Hurt or No Threatened By a Person Tobacco & Substance use: Smoking Status Former smoker alcohol intake frequency other Substance Use Type does not use Meds Home Medications and Allergies Home Medications Medication Instructions Recorded Confirmed Type Fluticasone Propionate (FLONASE) 0.05 mg NS PRN PRN #0 02/01/13 02/19/21 History MULTIVITAMIN (#MULTIPLE VITAMINS) 1 cap PO Q DAY #0 02/01/13 02/19/21 History metformin 500 mg tablet 500 mg PO BIDCC #0 02/01/13 02/19/21 History (Glucophage) acetaminophen 500 mg tablet 500 mg PO Q4HP PRN #0 07/10/17 02/19/21 History (Tylenol Extra Strength) doxepin 100 mg capsule 100 mg PO HS #0 07/10/17 02/19/21 History simvastatin 20 mg tablet 20 mg PO HS #0 07/10/17 02/19/21 History aspirin 81 mg tablet,delayed 81 mg PO QDAY PRN #0 08/04/17 02/19/21 History release albuterol sulfate 90 mcg/actuation 1 puff INH Q4H PRN 01/19/18 02/19/21 History aerosol inhaler (Ventolin HFA) atenolol 50 mg tablet 50 mg PO BID #90 tab 08/09/18 02/19/21 Rx Allergies Allergy/AdvReac Type Severity Reaction Status Date / Time carboplatin Allergy Severe Anaphylaxis Verified 04/23/21 11:13 adhesive Allergy Intermediate RASH Verified 04/23/21 11:13 codeine AdvReac Unknown NIGHTMARES, Verified 04/23/21 11:13 PANIC hydrocodone AdvReac Unknown NIGHTMARES, Verified 04/23/21 11:13 PANIC, VH Sulfa (Sulfonamide AdvReac Unknown NAUSEA Verified 04/23/21 11:13 Antibiotics) Review of Systems Review of Systems Narrative: All other systems reviewed with the patient and are negative unless otherwise stated. Exam Vital Signs (past 8 hours): - 04/23/21 11:10 04/23/21 12:25 04/23/21 12:45 Temperature 97.9 F Pulse Rate 61 55 L 26 L Respiratory Rate 15 20 20 Blood Pressure 144/69 H 146/71 H 146/70 H Pulse Oximetry 99 96 96 04/23/21 13:17 04/23/21 14:00 04/23/21 14:40 Temperature Pulse Rate 56 L 61 Respiratory Rate 15 Blood Pressure 125/66 156/82 H Pulse Oximetry 94 96 84 L 04/23/21 14:50 04/23/21 15:06 04/23/21 15:30 Temperature Pulse Rate 59 L 91 H Respiratory Rate 16 Blood Pressure 168/67 H 174/99 H Pulse Oximetry 96 97 95 Oxygen Delivery Method Nasal Cannula Oxygen Flow Rate 2 Narrative Exam Narrative: GENERAL APPEARANCE: Well developed, well nourished, in no acute distress. SKIN: Inspection of the skin reveals no rashes, ulcerations or petechiae. HEENT: Normocephalic atraumatic, extraocular muscles are intact, oropharynx is clear and mucous membranes are moist, neck is supple without adenopathy NECK: Supple and symmetric. There was no thyroid enlargement, and no tenderness, or masses were felt. CHEST: Normal AP diameter and normal contour without any kyphoscoliosis. LUNGS: Auscultation of the lungs revealed no wheezes, rhonchi, or rales. CARDIOVASCULAR: There was a regular rate and rhythm without any murmurs, gallops, rubs. Peripheral pulses were 2+ and symmetric. ABDOMEN: Soft and nontender with normal bowel sounds. No ascites was noted. MUSCULOSKELETAL: There was no tenderness or effusions noted. Muscle strength and tone were normal. EXTREMITIES: No cyanosis, clubbing or edema. NEUROLOGIC: Alert and oriented x 3. Normal affect. Gait was normal. Strength is +5/5 in the Upper Extremities and Lower Extremities Bilaterally. Sensation to touch was normal. Objective Labs Result Diagrams: 04/23/21 11:35 04/23/21 11:35 Labs: Laboratory Results - last 24 hr 04/23/21 04/23/21 04/23/21 11:20 11:35 11:35 WBC 5.3 RBC 4.49 Hgb 12.2 Hct 36.6 MCV 81.6 MCH 27.1 MCHC 33.2 RDW 15.4 H Plt Count 165 Neut % (Auto) 81.1 H Lymph % (Auto) 10.5 L [place] % (Auto) 5.8 Eos % (Auto) 2.4 Baso % (Auto) 0.2 Neut # (Auto) 4300 Lymph # (Auto) 600 L [place] # (Auto) 300 Eos # (Auto) 100 Baso # (Auto) 0 Sodium 140 Potassium 4.6 Chloride 107 Carbon Dioxide 28 BUN 17 Creatinine 0.51 L Estimated GFR > 60.0 BUN/Creatinine Ratio 33.3 H Glucose 102 Calcium 9.5 Total Bilirubin 0.4 AST 21 ALT 12 Alkaline Phosphatase 77 Total Protein 6.9 Albumin 3.9 Globulin 3.0 Albumin/Globulin Ratio 1.3 SARS-CoV-2 (PCR) Negative Assessment & Plan Assessment & Plan narrative: This is an 80-year-old female with a past medical history of stage III lung adenocarcinoma status post chemo and radiation, breast cancer, hypertension, dementia, hepatitis-C, diabetes, and hyperlipidemia who presented after a ground level fall complaining of left hip pain. Hip imaging revealed a left femoral intertrochanteric fracture. Admitted to medicine pending orthopedics consultation for possible operative management. 1. L femoral neck fracture, pathologic, acute, present on admission 2. lung adenocarcinoma 3. HTN 4. type 2 diabetes 5. HLD 6. Hep C Geriatric cardiac risk 1.9%
--- NOTE | 2021-04-23 17:05 | PM.CN ---
History of Present Illness Consult details Date Patient Seen: 04/23/21 Time Patient Seen: 17:05 Chief complaint: GLF Lt. hip pain Narrative: Patient is an 80-year-old female with a past medical history of stage III lung adenocarcinoma status post chemo and radiation, breast cancer, hypertension, dementia, hepatitis-C, diabetes, and hyperlipidemia who presented after a ground level fall complaining of left hip pain. Due the patient's dementia it is unclear exactly how the fall happened was that this was a mechanical fall or a syncopal episode. She denies any other extremity pain on exam. Meds Home Medications and Allergies Home Medications Medication Instructions Recorded Confirmed Type Fluticasone Propionate (FLONASE) 0.05 mg NS PRN PRN #0 02/01/13 02/19/21 History MULTIVITAMIN (#MULTIPLE VITAMINS) 1 cap PO Q DAY #0 02/01/13 02/19/21 History metformin 500 mg tablet 500 mg PO BIDCC #0 02/01/13 02/19/21 History (Glucophage) acetaminophen 500 mg tablet 500 mg PO Q4HP PRN #0 07/10/17 02/19/21 History (Tylenol Extra Strength) doxepin 100 mg capsule 100 mg PO HS #0 07/10/17 02/19/21 History simvastatin 20 mg tablet 20 mg PO HS #0 07/10/17 02/19/21 History aspirin 81 mg tablet,delayed 81 mg PO QDAY PRN #0 08/04/17 02/19/21 History release albuterol sulfate 90 mcg/actuation 1 puff INH Q4H PRN 01/19/18 02/19/21 History aerosol inhaler (Ventolin HFA) atenolol 50 mg tablet 50 mg PO BID #90 tab 08/09/18 02/19/21 Rx Allergies Allergy/AdvReac Type Severity Reaction Status Date / Time carboplatin Allergy Severe Anaphylaxis Verified 04/23/21 11:13 adhesive Allergy Intermediate RASH Verified 04/23/21 11:13 codeine AdvReac Unknown NIGHTMARES, Verified 04/23/21 11:13 PANIC hydrocodone AdvReac Unknown NIGHTMARES, Verified 04/23/21 11:13 PANIC, VH Sulfa (Sulfonamide AdvReac Unknown NAUSEA Verified 04/23/21 11:13 Antibiotics) Review of Systems Review of Systems ROS: Yes unobtainable due to mental condition Exam Vital Signs (past 8 hours): - 04/23/21 11:10 04/23/21 12:25 04/23/21 12:45 Temperature 97.9 F Pulse Rate 61 55 L 26 L Respiratory Rate 15 20 20 Blood Pressure 144/69 H 146/71 H 146/70 H Pulse Oximetry 99 96 96 04/23/21 13:17 04/23/21 14:00 04/23/21 14:40 Temperature Pulse Rate 56 L 61 Respiratory Rate 15 Blood Pressure 125/66 156/82 H Pulse Oximetry 94 96 84 L 04/23/21 14:50 04/23/21 15:06 04/23/21 15:30 Temperature Pulse Rate 59 L 91 H Respiratory Rate 16 Blood Pressure 168/67 H 174/99 H Pulse Oximetry 96 97 95 Oxygen Delivery Method Nasal Cannula Oxygen Flow Rate 2 Narrative Exam Narrative: Grossly neurovascular intact in left lower extremity. No skin breaks or abrasions over the left hip. Objective Labs Result Diagrams: 04/23/21 11:35 04/23/21 11:35 Labs: Laboratory Results - last 24 hr 04/23/21 04/23/21 04/23/21 11:20 11:35 11:35 WBC 5.3 RBC 4.49 Hgb 12.2 Hct 36.6 MCV 81.6 MCH 27.1 MCHC 33.2 RDW 15.4 H Plt Count 165 Neut % (Auto) 81.1 H Lymph % (Auto) 10.5 L [place] % (Auto) 5.8 Eos % (Auto) 2.4 Baso % (Auto) 0.2 Neut # (Auto) 4300 Lymph # (Auto) 600 L [place] # (Auto) 300 Eos # (Auto) 100 Baso # (Auto) 0 Sodium 140 Potassium 4.6 Chloride 107 Carbon Dioxide 28 BUN 17 Creatinine 0.51 L Estimated GFR > 60.0 BUN/Creatinine Ratio 33.3 H Glucose 102 Calcium 9.5 Total Bilirubin 0.4 AST 21 ALT 12 Alkaline Phosphatase 77 Total Protein 6.9 Albumin 3.9 Globulin 3.0 Albumin/Globulin Ratio 1.3 SARS-CoV-2 (PCR) Negative Assessment & Plan Assessment & Plan narrative: Patient is a 80-year-old female with a complex past medical history including breast cancer, hepatitis, diabetes, dementia, etc.. Due to her dementia it is unclear exactly how this fall occurred. New imaging obtained through the ER demonstrates that she has a basicervical neck fracture/intertroch fracture. I discussed with the patient that this fracture pattern necessitates surgical stabilization to allow for healing. And this also lost for early mobilization weightbearing. Patient demonstrates understanding. She wishes to proceed. Plan is for surgical stabilization with a short cephalomedullary nail this evening. - VINICIOOR - LINDAB LLE - NPO Time Spent With Patient Time with patient: 15-24 minutes
--- NOTE | 2021-04-23 17:43 | PM.HP.1 ---
History of Present Illness History of Present Illness Date Patient Seen: 04/23/21 Time Patient Seen: 17:43 Chief complaint: GLF Lt. hip pain Narrative: This is an 80-year-old female with a past medical history of stage III lung adenocarcinoma status post chemo and radiation, breast cancer, hypertension, dementia, hepatitis-C, diabetes, paroxysmal atrial fibrillation, and hyperlipidemia who presented after a ground level fall complaining of left hip pain. History regarding her fall is currently unable to be obtained given the patient's dementia, and inability to recall the event. She currently complains of left hip pain, but frequently talks with vague generalities, does not remember her fall. Talked with the son and the patient reports that her mental status and cognition waxes and wanes but this is fairly consistent with her usual self. He reports that she does all of her bathing and generally takes care of herself. She uses a walker at baseline. He has tried to get help at home but the patient was resistant to help. The son states that her mobility is limited with a walker, but she does not complain of shortness of breath, leg swelling. He does not believe she has had any recent chest pain, and denies any recent nausea, vomiting, diarrhea. In the emergency room, the patient was mildly hypertensive, her o2 is documented at 84% on room air, unclear circumstances regarding this. She is now 97% on room air on arrival to the floor. Laboratory evaluation including CBC and CMP were largely unremarkable. COVID-19 testing was negative. EKG showed a left bundle branch block, with sinus bradycardia with no grossly apparent changes compared to 2017 though her probable LVH is more notable on this EKG. Hip imaging revealed a left femoral intertrochanteric fracture. Chest x-ray performed showed a right upper lobe masslike consolidation consistent with her history of lung adenocarcinoma. Orthopedic surgery was consulted in the emergency room Family history: unable to review given patient's dementia. Patient History Medical History (Updated 04/23/21 @ 18:09 by Osmar Laird DO) Cancer of left breast Diabetes Hepatitis C Hip fracture History of prosthetic unicompartmental arthroplasty of both knees HTN (hypertension) Hyperlipidemia Left bundle branch block (LBBB) Non-small cell lung cancer Paroxysmal atrial fibrillation Port-A-Cath in place Right humeral fracture Surgical History History of carpal tunnel release Hx of cholecystectomy Hx of dilation and curettage Hx of tonsillectomy Hx of tubal ligation Family & Social History Social History: household members family Safety & Behavioral: Feels Safe in Current Yes Environment Been Physically Hurt or No Threatened By a Person Tobacco & Substance use: Smoking Status Former smoker alcohol intake frequency other Substance Use Type does not use Meds Home Medications and Allergies Home Medications Medication Instructions Recorded Confirmed Type Fluticasone Propionate (FLONASE) 0.05 mg NS PRN PRN #0 02/01/13 02/19/21 History MULTIVITAMIN (#MULTIPLE VITAMINS) 1 cap PO Q DAY #0 02/01/13 02/19/21 History metformin 500 mg tablet 500 mg PO BIDCC #0 02/01/13 02/19/21 History (Glucophage) acetaminophen 500 mg tablet 500 mg PO Q4HP PRN #0 07/10/17 02/19/21 History (Tylenol Extra Strength) doxepin 100 mg capsule 100 mg PO HS #0 07/10/17 02/19/21 History simvastatin 20 mg tablet 20 mg PO HS #0 07/10/17 02/19/21 History aspirin 81 mg tablet,delayed 81 mg PO QDAY PRN #0 08/04/17 02/19/21 History release albuterol sulfate 90 mcg/actuation 1 puff INH Q4H PRN 01/19/18 02/19/21 History aerosol inhaler (Ventolin HFA) atenolol 50 mg tablet 50 mg PO BID #90 tab 08/09/18 02/19/21 Rx Allergies Allergy/AdvReac Type Severity Reaction Status Date / Time carboplatin Allergy Severe Anaphylaxis Verified 04/23/21 18:14 adhesive Allergy Intermediate RASH Verified 04/23/21 18:14 codeine AdvReac Unknown NIGHTMARES, Verified 04/23/21 18:14 PANIC hydrocodone AdvReac Unknown NIGHTMARES, Verified 04/23/21 18:14 PANIC, VH Sulfa (Sulfonamide AdvReac Unknown NAUSEA Verified 04/23/21 18:14 Antibiotics) Review of Systems Review of Systems Narrative: All other systems reviewed with the patient and are negative unless otherwise stated. Exam Vital Signs (past 8 hours): - 04/23/21 11:10 04/23/21 12:25 04/23/21 12:45 Temperature 97.9 F Pulse Rate 61 55 L 26 L Respiratory Rate 15 20 20 Blood Pressure 144/69 H 146/71 H 146/70 H Pulse Oximetry 99 96 96 04/23/21 13:17 04/23/21 14:00 04/23/21 14:40 Temperature Pulse Rate 56 L 61 Respiratory Rate 15 Blood Pressure 125/66 156/82 H Pulse Oximetry 94 96 84 L 04/23/21 14:50 04/23/21 15:06 04/23/21 15:30 Temperature Pulse Rate 59 L 91 H Respiratory Rate 16 Blood Pressure 168/67 H 174/99 H Pulse Oximetry 96 97 95 04/23/21 16:00 04/23/21 16:30 Temperature Pulse Rate 73 61 Respiratory Rate Blood Pressure 138/61 146/63 H Pulse Oximetry 95 Oxygen Delivery Method Room Air Oxygen Flow Rate 2 Narrative Exam Narrative: GENERAL APPEARANCE: chronically ill appearing confused elderly female, no acute distress. SKIN: Inspection of the skin reveals no rashes, ulcerations or petechiae. HEENT: Normocephalic atraumatic, extraocular muscles are intact, oropharynx is clear and mucous membranes are moist, neck is supple without adenopathy NECK: Supple and symmetric. There was no thyroid enlargement, and no tenderness, or masses were felt. LUNGS: Auscultation of the lungs revealed no wheezes, rhonchi, or rales. CARDIOVASCULAR: There was a regular rate and rhythm without any murmurs, gallops, rubs. Peripheral pulses were 2+ and symmetric. ABDOMEN: Soft, nontender, and nondistended MUSCULOSKELETAL: Left hip was not assessed, no right hip tenderness, patient was lying left lateral recumbent in her bed somewhat remarkably given her femoral fracture. EXTREMITIES: No cyanosis, clubbing or edema. No joint effusions. NEUROLOGIC: Oriented to name only, pleasantly confused. Follows commands, no obvious focal deficits. Objective ECG Impression: sinus bradycardia, LBBB, mildly worsened LVH compared to prior tracing from 2017. Imaging Chest x-ray: My impression: RUL mass probable, linear scarring of the RUL also noted. No pneumothorax or basilar infiltrates. Labs Result Diagrams: 04/23/21 11:35 04/23/21 11:35 Labs: Laboratory Results - last 24 hr 04/23/21 04/23/21 04/23/21 11:20 11:35 11:35 WBC 5.3 RBC 4.49 Hgb 12.2 Hct 36.6 MCV 81.6 MCH 27.1 MCHC 33.2 RDW 15.4 H Plt Count 165 Neut % (Auto) 81.1 H Lymph % (Auto) 10.5 L [place] % (Auto) 5.8 Eos % (Auto) 2.4 Baso % (Auto) 0.2 Neut # (Auto) 4300 Lymph # (Auto) 600 L [place] # (Auto) 300 Eos # (Auto) 100 Baso # (Auto) 0 Sodium 140 Potassium 4.6 Chloride 107 Carbon Dioxide 28 BUN 17 Creatinine 0.51 L Estimated GFR > 60.0 BUN/Creatinine Ratio 33.3 H Glucose 102 Calcium 9.5 Total Bilirubin 0.4 AST 21 ALT 12 Alkaline Phosphatase 77 Total Protein 6.9 Albumin 3.9 Globulin 3.0 Albumin/Globulin Ratio 1.3 SARS-CoV-2 (PCR) Negative Assessment & Plan Assessment & Plan narrative: This is an 80-year-old female with a past medical history of stage III lung adenocarcinoma status post chemo and radiation, breast cancer, hypertension, dementia, diabetes, and hyperlipidemia who presented after a ground level fall complaining of left hip pain. Hip imaging revealed a left femoral intertrochanteric fracture. Admitted to medicine with orthopedics consultation for operative management of L femoral neck fracture. 1. L femoral neck fracture, pathologic, acute, present on admission - patient appears medically optimized at this time prior to surgery. Geriatric cardiac risk calculated at 1.9%. - NPO, pain control - Dr. Ocampo has consulted, plans for possible OR tonight. - if dementia allows, probable discharge to SNF. 2. lung adenocarcinoma, right lung - no recent treatment. patient is s/p chemo and radiation per reports. CT imaging per son a few months ago showed no disease. CXR here with masslike consolidation of the RUL. - previous foot drop, recommended MRI in the past but patient did not wish to go per son. will see how she does with PT, may need imaging here if symptomatic. 3. HTN - elevated BP likely in setting of pain, continue home medications. 4. type 2 diabetes - will check a1c, takes metformin only at home. can continue metformin tomorrow. - low sliding scale for now. 5. HLD - continhe home statin 6. paroxysmal atrial fibrillation - reported by son, not on blood thinner other than aspiring. Code: DNR, surrogate decision maker is patient's son BRI Ramirez. Dispo: Admit as inpatient. DVT: per orthopedics after surgery. I have utilized all available immediate resources to obtain, update, or review the patient's current medications. COVID-19 COVID-19 status: Negative Quality MIPS - Admit I confirm the patient?s Advance Care Plan is present, Code status is documented, Surrogate decision maker is in patient?s record [If Yes, STOP here]: Yes
--- NOTE | 2021-04-23 18:01 | PC.NURSE ---
Patient brought up to AC unit around 1730. Patient very confused and is oriented to self only. She was unaware she had fallen and broken her hip and did not know if she lived alone or at a facility. Dr. Laird came to evaluate patient and cleared for surgery. Was taken down to pre-op at 1750. Was NPO while she was on the unit. Informed by Dr. Laird that she lives with her son. Let OR nurses know this and see if they can contact him.
[2021-04-23] MEDS: LACTATED RINGERS 1,000 ML 42 ML IV (18:52)
[2021-04-23] MEDS: CEFAZOLIN 1 GM VIAL IV (19:36)
--- NOTE | 2021-04-23 19:54 | SUR.OPER ---
Supine on padded [place] table with bilateral legs secured in padded positioning boots and suspended in positioning spars, operative leg in traction per surgeon. Head on one pillow. Arm on non-operative side secured on padded armboard <90 degrees abduction. Arm on operative side padded and resting across chest then secured with tape over sheet. Padded perineal post in place per surgeon.
[2021-04-23] MEDS: ACETAMINOPHEN IV 1,000 MG/100 ML VIAL 400 MG IV (20:07)
--- NOTE | 2021-04-23 20:45 | P.OP_ITS ---
Operative Date/Time/Diagnoses Date of procedure: 04/23/21 Time of procedure: 20:45 Pre-op diagnosis: left hip IT femur fracture Post-op diagnosis: same Procedure & Clinicians Procedure: Left hip short cephalomedullary nail Same procedure as scheduled: Yes Indications: Minimally displaced left intertrochanteric femur fracture Surgeon: Kayden Ocampo Click Yes if Unassisted: Yes Anesthesia Type: General Operative Notes Findings: Minimally displaced left intertrochanteric femur fracture Closure Type: primary Prosthetic devices, grafts, tissues, transplants, or devices: Graham and nephew understand nail 11.5 mm x 18 cm 95 mm lag screw 90 mm compression screw 5.0 mm x 35 mm distal interlocking Estimated Blood Loss (mL): 50 Procedure in detail: Patient was met in the preoperative holding area where the site and side of surgery marked by . Patient has baseline dementia she appears to understand the conversation we had the preoperative area by also called her son spoke with him over the phone we also discussed the consent form including the risks and benefits. Her son James is her power of civil litigation attorney. This was witnessed by preop nursing as well. Patient was then brought back to the operating room where she was induced under general anesthesia. She was then transferred to a [place] table. The left foot was then placed in a well-padded [place] table boots the right leg was then placed in a well leg carroll. This point imaging was brought in to determine that we get tangential views and they had maintenance of the reduction of the fracture. The left lower extremity then prepped and draped normal sterile fashion. A 2 cm long incision was made proximal to the femur in line with the long axis the femur. Quinn scissors were then used to split the fascia. A threaded tip guidewire was then placed under tangential views and malleted into the femur at the tip of the greater trochanter centered on the AP and lateral views. This wire was driven down to below the lesser trochanter. These wire was then swallowed by the opening Reamer. A 11.5 mm short cephalomedullary nail was then selected this was then malleted into place under fluoroscopic guidance. The aiming jig was then used to place the threaded tip guidewire for the lag screw. The compression screw was then drilled for to a depth of 90 mm the lag screw was measured to a depth 95 mm the anti rotation bar was then placed for the compression screw and lag screw was then drilled over the wire. The lag screw was then placed followed by placement of the compression screw we compressed several mm through the fracture site had good reduction of the fracture. The instrumentation for the lag screw and compression screws were then removed. The jig was then used to place a static distal interlocking bolt. This was measured to a depth of 35 mm and this pole was then subsequently placed. At this point final fluoroscopic imaging was obtained after removing the jig. Imaging include AP and laterals. Once this was completed all the incisions were thoroughly irrigated the fascia was then closed with a 1. Vicryl in the proximal incision and the mid incision and 2 Vicryl was then used in subcutaneous layer at the proximal mid and distal incisions followed by sharda on skin an Aquacel dressings. Post-operative Condition: stable Disposition: PACU Plan for aftercare: 24 hours postop antibiotics, Lovenox for DVT prophylaxis for 4 weeks, weightbearing as tolerated left lower extremity.
--- NOTE | 2021-04-23 21:01 | SUR.PHASEI ---
2049 OR nurse used adhesive remover below left breast to remove adhesive from EKG from the 12-lead. Skin pinker than surrounding tissues
--- NOTE | 2021-04-23 21:12 | SUR.PHASEI ---
Report called to acute care RN, patient arousing, eyes open, states OK when asked how she is, declines ice chips.
--- NOTE | 2021-04-23 21:15 | SUR.PHASEI ---
Resting calmly, responds to verbal stimuli although not oriented.
--- NOTE | 2021-04-23 22:00 | SUR.PHASEI ---
2123 late entry Patient to room 202, bed down and locked, call light within reach, O2 on at 2 LNP, Report updated. VSS, Bed alarm on. No further questions from staff. Patient remains calm, frequently saying 'thank you' when we talk to her.
[2021-04-23] MEDS: atenoloL 50 MG TABLET PO (22:17)
[2021-04-23] MEDS: DOCUSATE 100 MG CAPSULE PO (22:17)
[2021-04-23] MEDS: ACETAMINOPHEN 325 MG TABLET 650 MG PO (22:17)
[2021-04-23] MEDS: LACTATED RINGERS 1,000 ML 75 ML IV (22:24)
--- NOTE | 2021-04-23 22:25 | PC.NURSE ---
Patient up to AC from PACU at 2130. Patient denies pain and is resting comfortably. She is on 1L NC sating 96% with LR running at 75ml/hr. Her son, James, was able to see patient for 15 minutes and helped to answer admission questions. Bed low and locked and bed alarm is on. Dressings CDI.
--- NOTE | 2021-04-24 00:22 | PC.NURSE ---
Addendum entered by Mireya Ortega R.N. 04/24/21 06:51: UOP only 175cc this shift with IVF infusing at 75cc/h. Nilesh MURRAY, informed. Original Note: Patient is alert but oriented only to name and birthdate. When asked other questions responses are sometime word salad. Stated she is in [place]. Is able to follow directions. Breath sounds CTA with oxygen at 1L/min with sat of 97% so decreased to 0.5L/min per NC in attempt to wean off. HRR. BP trending 120-160 systolic and was 142/66 at time of assessment. Denied nausea. BT present and abdomen is soft. Indwelling catheter is patent; urine is clear abelardo. Assisted to reposition as not moving by herself; turned onto left side. FLACC score is 0 and when asked if she is comfortable she says yes. Aquacel dressings x 2 to left lateral LE are CDI. Is wearing bilateral calf SCD's. Has good pedal pulses and cap refill. Fall risk score is high and bed alarm is activated.
[2021-04-24 00:30] VITALS: BP 141/77; PULSE 60; RESP 16; TEMP 36.3; O2SAT 93
[2021-04-24] MEDS: CEFAZOLIN 1 GM VIAL 2 GM IV ×2 (03:44→11:26)
[2021-04-24 05:21] VITALS: BP 151/70; PULSE 70; RESP 24; TEMP 36.3; O2SAT 97
--- NOTE | 2021-04-24 07:21 | P.PN_ITS ---
Subjective Subjective Date Patient Seen: 04/24/21 Time Patient Seen: 07:21 Interval history: The patient is complaining of mild left hip pain this morning. She is a poor historian and is having difficulty answering questions this morning. She has a history of dementia. She denies fevers or chills. She is unsure where she normally lives. Exam Vital Signs (past 8 hours): - 04/23/21 23:30 04/24/21 00:30 04/24/21 05:21 Temperature 97.1 F L 97.4 F L 97.3 F L Pulse Rate 60 60 70 Respiratory Rate 16 16 24 Blood Pressure 142/66 H 141/77 H 151/70 H Pulse Oximetry 97 93 97 Oxygen Delivery Method Nasal Cannula Oxygen Flow Rate 0 Narrative Exam Narrative: Pleasant but forgetful 80-year-old female resting comfortably in bed, no acute distress. There is scant drainage on the superior dressing. Calves are soft, nontender to palpation. SCDs are on the functioning. Both legs are warm and dry. Objective Labs Result Diagrams: 04/23/21 11:35 04/23/21 11:35 Labs: Laboratory Results - last 24 hr 04/23/21 04/23/21 04/23/21 11:20 11:35 11:35 WBC 5.3 RBC 4.49 Hgb 12.2 Hct 36.6 MCV 81.6 MCH 27.1 MCHC 33.2 RDW 15.4 H Plt Count 165 Neut % (Auto) 81.1 H Lymph % (Auto) 10.5 L [place] % (Auto) 5.8 Eos % (Auto) 2.4 Baso % (Auto) 0.2 Neut # (Auto) 4300 Lymph # (Auto) 600 L [place] # (Auto) 300 Eos # (Auto) 100 Baso # (Auto) 0 Sodium 140 Potassium 4.6 Chloride 107 Carbon Dioxide 28 BUN 17 Creatinine 0.51 L Estimated GFR > 60.0 BUN/Creatinine Ratio 33.3 H Glucose 102 Calcium 9.5 Total Bilirubin 0.4 AST 21 ALT 12 Alkaline Phosphatase 77 Total Protein 6.9 Albumin 3.9 Globulin 3.0 Albumin/Globulin Ratio 1.3 SARS-CoV-2 (PCR) Negative [facility] Medical History Cancer of left breast Diabetes Hepatitis C Hip fracture History of prosthetic unicompartmental arthroplasty of both knees HTN (hypertension) Hyperlipidemia Left bundle branch block (LBBB) Non-small cell lung cancer Paroxysmal atrial fibrillation Port-A-Cath in place Right humeral fracture Surgical History History of carpal tunnel release Hx of cholecystectomy Hx of dilation and curettage Hx of tonsillectomy Hx of tubal ligation Social History household members: family Smoking Status: Former smoker alcohol intake: former Comment: dementia Assessment & Plan Post-op Postoperative Procedures: Procedures Operation Date: 04/23/21 18:30 Actual Procedure Side Surgeon p ORIF Hip/Intramedullary Hip Screw Left Kayden Ocampo MD Postoperative status narrative: Status post left hip short intramedullary nail, stable Postoperative plan narrative: Weight-bearing as tolerated with front wheeled walker. Mobilize with physical therapy. Ice for pain control in addition to oral medications. Disposition home or to detention facility to be determined. Quality VTE Deep Vein Thrombosis/Pulmonary Embolism Present on Admission: No
[2021-04-24 07:34] LABS: Hematocrit 33.1 % (36-46); Hemoglobin 11.1 g/dL (12.0-16.0); Mean Corpuscular HGB Conc 33.5 % (30-36); Mean Corpuscular Hemoglobin 27.4 PG (26-34); Mean Corpuscular Volume 81.7 fL (80-100); Platelet Count 161 X10^3/uL (150-400); Red Blood Cell Count 4.04 X10^6/uL (4.0-5.2); Red Cell Distribution Width 14.8 % (11.6-14.8); White Blood Cell Count 9.7 X10^3/uL (4.5-11.0)
[2021-04-24 07:50] VITALS: BP 135/61; PULSE 66; RESP 16; TEMP 36.6; O2SAT 95
[2021-04-24] MEDS: LACTATED RINGERS 1,000 ML 75 ML IV (09:34)
[2021-04-24] MEDS: DOCUSATE 100 MG CAPSULE PO (09:35)
[2021-04-24] MEDS: ENOXAPARIN 40 MG/0.4 ML SYRINGE SUBCUT (09:35)
[2021-04-24] MEDS: ACETAMINOPHEN 325 MG TABLET 650 MG PO ×2 (09:35→14:16)
[2021-04-24] MEDS: METFORMIN HCL 500 MG TABLET PO ×2 (09:35→17:54)
[2021-04-24] MEDS: atenoloL 50 MG TABLET PO (09:40)
--- NOTE | 2021-04-24 10:10 | PT.IIE ---
Current Diagnoses Pathological fracture, left femur, initial encounter for fracture (04/23/21) Surgery Performed Operation Date: 04/23/21 18:30 Actual Procedures p ORIF Hip/Intramedullary Hip Screw(Left) - Kayden Ocampo MD Medical History (Last Reviewed 04/24/21 @ 07:24 by Connie Griffin PA-C) Cancer of left breast Diabetes Hepatitis C Hip fracture History of prosthetic unicompartmental arthroplasty of both knees HTN (hypertension) Hyperlipidemia Left bundle branch block (LBBB) Non-small cell lung cancer Paroxysmal atrial fibrillation Port-A-Cath in place Right humeral fracture Physical Therapy Inpatient Evaluation/Re-Eval M1 PT/OT-IP Prior Functional Status Start: 04/24/21 12:49 Freq: NEEDED Status: Active Protocol: Document 04/24/21 10:10 AB (Rec: 04/24/21 13:01 AB [id number]) Medical Review Prior Functional Status Medical History Reviewed Yes Communication pt with dx of dementia and is not oriented to place, time and situation and has difficulty following directions Mobility and Gait per son: pt is modified independent with all mobilities at home and ambulation without AD but uses a FWW on and off depending on LLE pain Social History Household Members children Living Arrangements Mobile home Number of Floors (Floors) One Floor Number of Stairs To Enter/Railing? ramp to enter Home Environment Standard Height Toilet,Walk in Shower Home Equipment Front Wheel Walker,Four Wheel Walker,Raised Toilet Seat Without Armrests Additional Social History Comment pt lives with her son James but son works son said that pt uses her 4WW to sit on when she take her shower M2 PT-IP Current Condition Start: 04/24/21 12:49 Freq: NEEDED Status: Active Protocol: Document 04/24/21 10:10 AB (Rec: 04/24/21 13:01 AB [email or web address]) Physical Therapy Current Condition Current Condition Evaluation Date 04/24/21 Treatment Diagnosis GLF; L femur fx s/p nailing; difficulty in walking Onset Date 04/23/21 Weight Bearing Status Weight Bearing Status Weight Bear as Tolerated Allowed Weight Bearing Amount (enter % LLE WBAT or #) (%) M3 PT-IP Subjective Start: 04/24/21 12:49 Freq: NEEDED Status: Active Protocol: Document 04/24/21 10:10 AB (Rec: 04/24/21 13:01 [email or web address]) Subjective Physical Therapy Visit Type Type Initial Evaluation Visit Start Time 10:10 Visit Stop Time 10:40 Total Visit Minutes 30 Number of MANAGER PROJECT Visits 0 Therapy Pain Assessment Pain When Pain Assessed During Mobility Pain Present Pain Present Pain Reported Location Left Hip Scale Used pain scale not stated Pain Behaviors Guarding,Holding Area,Wincing Pain Management Techniques Apply Cold,Distraction, Modification of Treatment,Re- positioning,Timing of Activity with Medications M4 PT-IP Mobility and Gait Start: 04/24/21 12:49 Freq: NEEDED Status: Active Protocol: Document 04/24/21 10:10 AB (Rec: 04/24/21 13:01 [email or web address]) PT-Bed Mobility Assessment Supine to Sit Supine to Sit Maximum Assistance,1 Person Assistance,2 Person Assistance PT-Transfer Assessment Sit to and From Stand Sit to and from Stand Maximum Assistance,2 Person Assistance,Use of Upper Extremities Equipment Transfer Assistive Device Gait Belt,Front Wheeled Walker Orthotic/Prosthetic Devices or Brace: No Transfers Transfer Destination Chair Transfer Technique Stand Step Pivot Transfer Ability Level of Assist Maximum Assistance,2 Person Assistance,Use of Upper Extremities Comments Mobility Comments pt with dx dementia and requires max cues for all tasks. completed supine to sit max A x 1-2 and max cues. required mod to max A for sitting balance on EOB. completed sit to stand max A x 2 and max cues and completed step transfer using FWW max A x 2 and max cues. pt tends not to put weight on LLE and has increase hip/knee flexion during standing. requires max A x 2 for controlled descent to chair. positioned pt on chair max A x 2 and max cues. chair alarm on. call light and table placed within reach. Gait Assessment Comments Gait Comments unable at this time PT-Balance Assessment Sitting Balance and Reactions Static Sitting Balance Ability Fair Dynamic Sitting Balance Ability Fair Standing Balance and Reactions Static Standing Balance Ability Poor Dynamic Standing Balance Ability Poor Device Used FWW M5 PT-IP Objective Assessments Start: 04/24/21 12:49 Freq: NEEDED Status: Active Protocol: Document 04/24/21 10:10 AB (Rec: 04/24/21 13:01 [email or web address]) Orientation Orientation/Cognition Level of Alertness Confusional State Orientation Name Safety Awareness Decreased Safety Awareness Memory Description Short Term Impaired,Cloth Bale Header Impaired Gross Range of Motion Lower Extremity ROM Assessment Within Functional Limits Strength Lower Extremity Strength Assessment Bilaterally Impaired Comments Strength Comments RLE: 3+/5 LLE: 2+/5 Muscle Tone Muscle Tone WNL Yes M6 PT-IP Treatment Start: 04/24/21 12:49 Freq: NEEDED Status: Active Protocol: Document 04/24/21 10:10 AB (Rec: 04/24/21 13:01 AB [email or web address]) Physical Therapy Treatment Education Education Provided Precautions,Weight Bearing Status,Post-Op Packet,Safety M7 PT-IP Assessment and Plan Start: 04/24/21 12:49 Freq: NEEDED Status: Active Protocol: Document 04/24/21 10:10 AB (Rec: 04/24/21 13:01 AB [email or web address]) PT Summary Assessment and Plan Potential Rehabilitation Potential Fair Status of Condition at Evaluation Evolving Summary Impairments Pain,ROM,Strength,Balance, Coordination,Sensation,Tone, Cognition,Bed Mobility, Transfers,Gait,Activity Tolerance Assessment Summary pt requiring max A x 2 with mobility at this time and has difficulty following directions due to dx of dementia. pt will require SNF rehab to improve strength and mobility independence. Goals Bed Mobility Goal Minimal Assistance Transfer Goal Minimal Assistance,Front Wheeled Walker Gait Goal Minimal Assistance,Front Wheel Walker Gait Distance 50 Other Goals improve bed mobility, transfers to SBA using FWW improve ambulation using FWW 100 ft SBA Days to Meet Goals 10 Frequency of Treatment Frequency Of Treatment Twice a Day Treatment Plan Physical Therapy Treatment Plan Bed Mobility Training,Transfer Training,Gait Training, Therapeutic Exercise,Balance Retraining,Post Op Education, Discharge Planning,Hot or Cold Pack,Neuromuscular Re-ed, Coordination Retraining,Manual Therapy Precautions Other Precautions LLE WBAT Recommendations To Nursing Amount of Assist Needed 2 Person Assist Discharge Recommendations PT Discharge Recommendations SNF Rehab Transportation Needs at Discharge Wheelchair/Cabulance
--- NOTE | 2021-04-24 10:45 | PM.PN.1 ---
Subjective Subjective Date Patient Seen: 04/24/21 Time Patient Seen: 10:46 Interval history: Patient states she has pain, reaches to her left leg, but then seemingly forgets. She currently denies chest pain, shortness of breath. Exam Vital Signs (past 8 hours): - 04/24/21 05:21 04/24/21 07:50 Temperature 97.3 F L 97.8 F Pulse Rate 70 66 Respiratory Rate 24 16 Blood Pressure 151/70 H 135/61 Pulse Oximetry 97 95 Oxygen Delivery Method Nasal Cannula Oxygen Flow Rate 0 Narrative Exam Narrative: GENERAL APPEARANCE: chronically ill appearing confused elderly female, no acute distress. SKIN: Inspection of the skin reveals no rashes, ulcerations or petechiae. HEENT: Normocephalic atraumatic, extraocular muscles are intact, oropharynx is clear and mucous membranes are moist, neck is supple without adenopathy NECK: Supple and symmetric. There was no thyroid enlargement, and no tenderness, or masses were felt. LUNGS: Auscultation of the lungs revealed no wheezes, rhonchi, or rales. CARDIOVASCULAR: There was a regular rate and rhythm without any murmurs, gallops, rubs. Peripheral pulses were 2+ and symmetric. ABDOMEN: Soft, nontender, and nondistended MUSCULOSKELETAL: left hip dressing c/d/i without significant calf swelling. appropriate tenderness on exam. EXTREMITIES: No cyanosis, clubbing or edema. No joint effusions. NEUROLOGIC: Oriented to name only, pleasantly confused. Follows commands, no obvious focal deficits. Objective Labs Result Diagrams: 04/24/21 07:03 04/23/21 11:35 Labs: Laboratory Results - last 24 hr 04/23/21 04/23/21 04/23/21 11:20 11:35 11:35 WBC 5.3 RBC 4.49 Hgb 12.2 Hct 36.6 MCV 81.6 MCH 27.1 MCHC 33.2 RDW 15.4 H Plt Count 165 Neut % (Auto) 81.1 H Lymph % (Auto) 10.5 L [place] % (Auto) 5.8 Eos % (Auto) 2.4 Baso % (Auto) 0.2 Neut # (Auto) 4300 Lymph # (Auto) 600 L [place] # (Auto) 300 Eos # (Auto) 100 Baso # (Auto) 0 Sodium 140 Potassium 4.6 Chloride 107 Carbon Dioxide 28 BUN 17 Creatinine 0.51 L Estimated GFR > 60.0 BUN/Creatinine Ratio 33.3 H Glucose 102 Calcium 9.5 Total Bilirubin 0.4 AST 21 ALT 12 Alkaline Phosphatase 77 Total Protein 6.9 Albumin 3.9 Globulin 3.0 Albumin/Globulin Ratio 1.3 SARS-CoV-2 (PCR) Negative 04/24/21 07:03 WBC 9.7 D RBC 4.04 Hgb 11.1 L Hct 33.1 L MCV 81.7 MCH 27.4 MCHC 33.5 RDW 14.8 Plt Count 161 Neut % (Auto) Lymph % (Auto) [place] % (Auto) Eos % (Auto) Baso % (Auto) Neut # (Auto) Lymph # (Auto) [place] # (Auto) Eos # (Auto) Baso # (Auto) Sodium Potassium Chloride Carbon Dioxide BUN Creatinine Estimated GFR BUN/Creatinine Ratio Glucose Calcium Total Bilirubin AST ALT Alkaline Phosphatase Total Protein Albumin Globulin Albumin/Globulin Ratio SARS-CoV-2 (PCR) [facility] Medical History Cancer of left breast Diabetes Hepatitis C Hip fracture History of prosthetic unicompartmental arthroplasty of both knees HTN (hypertension) Hyperlipidemia Left bundle branch block (LBBB) Non-small cell lung cancer Paroxysmal atrial fibrillation Port-A-Cath in place Right humeral fracture Surgical History History of carpal tunnel release Hx of cholecystectomy Hx of dilation and curettage Hx of tonsillectomy Hx of tubal ligation Social History household members: family Smoking Status: Former smoker alcohol intake: former Assessment & Plan Assessment & Plan narrative: This is an 80-year-old female with a past medical history of stage III lung adenocarcinoma status post chemo and radiation, breast cancer, hypertension, dementia, diabetes, and hyperlipidemia who presented after a ground level fall complaining of left hip pain. Hip imaging revealed a left femoral intertrochanteric fracture. Admitted to medicine with orthopedics consultation for operative management of L femoral neck fracture. 1. L femoral neck fracture, pathologic, acute, present on admission - Dr. Ocampo has consulted, placed intermedullary nail on 04/23. - if dementia allows, probable discharge to SNF. PT / OT assessments today. 2. lung adenocarcinoma, right lung - no recent treatment. patient is s/p chemo and radiation per reports. CT imaging per son a few months ago showed no disease. CXR here with masslike consolidation of the RUL. - previous foot drop, recommended MRI in the past but patient did not wish to go per son. will see how she does with PT, may need imaging here if symptomatic. 3. HTN - elevated BP likely in setting of pain, continue home medications. 4. type 2 diabetes - will check a1c, takes metformin only at home. can continue metformin. 5. HLD - continhe home statin 6. paroxysmal atrial fibrillation - reported by son, not on blood thinner other than aspirin which the son states she takes only when she feels like it. Code: DNR, surrogate decision maker is patient's son BRI Ramirez. Dispo: Admit as inpatient. DVT: per orthopedics after surgery. I have utilized all available immediate resources to obtain, update, or review the patient's current medications. COVID-19 COVID-19 status: Negative Quality VTE Deep Vein Thrombosis/Pulmonary Embolism Present on Admission: No
[2021-04-24 11:37] VITALS: BP 130/66; PULSE 70; RESP 16; TEMP 36.5; O2SAT 96
--- NOTE | 2021-04-24 12:43 | CM.DANOTE ---
Addendum entered by Eleanor Shabazz LPN 04/24/21 15:58: [facility] D[facility] Luna/Sofia has confirmed acceptance of pt if she is unable to go to [facility]. Pt will not be ready for her 3 day inpt qualifying stay until 04/26 (Sat). Is unclear if she will be ready by then but very likely she will go this weekend. Discussed same with Ana/Noreen and also with James, present now at bedside with pt's vax card. James is agreeable to the [facility]. Message left for Sofia as update that the vax card is faxed to her and given to [facility] to scan to EMR. P: dc to [facility] when stable for same: 04/26 or >. Will check on the visitor regs at the snf for James (he is fully vaccinated) and update him tomorrow. Original Note: Discharge Planning/Care Management DCP: assessment: case received, EMR reviewed and met now with pt and her son David. Spoke then with POA son James: [phone] by phone. Introduced self and role. Pt has a dx of dementia, was smiling and laughing during the discussion, said to talk to James about her care. Mentioned that she had fallen but seemed unclear that she had a fracture with surgery. Pt is an 80 year old female who admitted yesterday afternoon to care of hospitalist team. Consulting: Orthopedic team: Dr. Ocampo. Pt fell at home, sustained a hip fracture/L and was taken to surgery for an ORIF: weight bearing as tolerated. Payer: Medicare and [facility]. Admission status: INPT: confirmed by [facility] Ceja. OT and PT are ordered but no notes are in yet for therapy. Discussed d/c issues/options with both James and David. James said that snf level rehab would be needed as pt is by herself at home some of each day with the sons calling in to check on her every hours. Discussed the challenges for someone with dementia who functions basically independently in home setting (she uses a FWW and does her own basic self-care) in a snf setting as she may try to get up by herself and would be at risk for falling. However, she will likely respond well to therapy as will want to automatically be doing what is her usual function. Asked about the home with home health and 24/7 assist by family and James says at this time that is not possible. Agreed to start the snf search await PT/OT silvinout. Pt has no prior snf experience. She is fully vaccinated: [employer] and James will bring her card to today by 1600. SNF Medicare list: discussed with James over phone. Will start with Noreen/Ana is reviewing. (She says at this time [facility] is still unable to take weekend admissions) Will also send referrals to [facility] as well as the [facility] and [facility]. [facility] is faxing the referral to each of these. This d/c certified financial planner will follow up to call the facilities for further discussion. CM Discharge Assessment Start: 04/24/21 12:40 Freq: Status: Active Protocol: Document 04/24/21 12:41 ITV (Rec: 04/24/21 12:43 ITV [id number]) Discharge Planning Assessment Advance Directives? No History Provided By Patient,Family Member,Medical Record Has Patient been admitted in last 30 No days? Prior Living Arrangements House Household Members family Comment lives with son James/BRI (James works daily) Type of transporation used prior to Relies on Others admit Independent with ADL's No Is patient alert and oriented? No DME Already Rented / Owned FWW / Walker Referrals Initiated [facility]
--- NOTE | 2021-04-24 13:55 | PT.IPTN ---
Current Diagnoses Pathological fracture, left femur, initial encounter for fracture (04/23/21) Surgery Performed Operation Date: 04/23/21 18:30 Actual Procedures p ORIF Hip/Intramedullary Hip Screw(Left) - Kayden Ocampo MD Physical Therapy Treatment Note M2 PT-IP Current Condition Start: 04/24/21 12:49 Freq: NEEDED Status: Active Protocol: Document 04/24/21 10:10 AB (Rec: 04/24/21 13:01 AB [email or web address]) Physical Therapy Current Condition Current Condition Evaluation Date 04/24/21 Treatment Diagnosis GLF; L femur fx s/p nailing; difficulty in walking Onset Date 04/23/21 Weight Bearing Status Weight Bearing Status Weight Bear as Tolerated Allowed Weight Bearing Amount (enter % LLE WBAT or #) (%) M3 PT-IP Subjective Start: 04/24/21 12:49 Freq: NEEDED Status: Active Protocol: Document 04/24/21 13:55 AB (Rec: 04/24/21 16:04 AB [email or web address]) Subjective Physical Therapy Visit Type Type Treatment Note Visit Start Time 13:55 Visit Stop Time 14:25 Total Visit Minutes 30 Number of VARIOUS EXCEPTIONALITIES TEACHER Visits 0 Therapy Pain Assessment Pain When Pain Assessed During Mobility Pain Present Pain Present Pain Reported Location Left Hip Scale Used pain scale not stated Pain Management Techniques Distraction,Modification of Treatment,Re-positioning M4 PT-IP Mobility and Gait Start: 04/24/21 12:49 Freq: NEEDED Status: Active Protocol: Document 04/24/21 13:55 AB (Rec: 04/24/21 16:04 AB [email or web address]) PT-Bed Mobility Assessment Sit to Supine Sit to Supine Maximum Assistance,1 Person Assistance PT-Transfer Assessment Sit to and From Stand Sit to and from Stand Maximum Assistance,2 Person Assistance,Use of Upper Extremities Equipment Transfer Assistive Device Gait Belt,Front Wheeled Walker Orthotic/Prosthetic Devices or Brace: No Transfers Transfer Destination Bed Transfer Technique Stand Step Pivot Transfer Ability Level of Assist Maximum Assistance,2 Person Assistance,Use of Upper Extremities Comments Mobility Comments pt continues to require max cues with all tasks. completed sit to stand from chair max A x 2 and max cues. attempted ambulation but unable to complete and has difficulty following directions. instructed to transfer to bed instead and completed max A x 2 and max cues. requires max A to stabilize LLE with (+) L knee buckling. pt also puts weight on LLE minimally and has LLE in flexion. completed sit to supine max A and max cues. positioned pt on the bed. call light and table placed within reach. Gait Assessment Comments Gait Comments attempted but unable to complete but able to step transfer to bed M5 PT-IP Objective Assessments Start: 04/24/21 12:49 Freq: NEEDED Status: Active Protocol: Document 04/24/21 10:10 AB (Rec: 04/24/21 13:01 AB [facility]) Orientation Orientation/Cognition Level of Alertness Confusional State Orientation Name Safety Awareness Decreased Safety Awareness Memory Description Short Term Impaired,Card Painter Impaired Gross Range of Motion Lower Extremity ROM Assessment Within Functional Limits Strength Lower Extremity Strength Assessment Bilaterally Impaired Comments Strength Comments RLE: 3+/5 LLE: 2+/5 Muscle Tone Muscle Tone WNL Yes M6 PT-IP Treatment Start: 04/24/21 12:49 Freq: NEEDED Status: Active Protocol: Document 04/24/21 13:55 AB (Rec: 04/24/21 16:04 AB [facility]) Physical Therapy Treatment Education Education Provided Safety M7 PT-IP Assessment and Plan Start: 04/24/21 12:49 Freq: NEEDED Status: Active Protocol: Document 04/24/21 13:55 AB (Rec: 04/24/21 16:04 AB [facility]) PT Summary Assessment and Plan Potential Rehabilitation Potential Fair Summary Impairments Pain,ROM,Strength,Balance, Coordination,Sensation,Tone, Cognition,Bed Mobility, Transfers,Gait,Activity Tolerance Progress Towards Goals Slow Progress due to Pain,Slow Progress - Other Assessment Summary pt continues to require max A x2 for mobility and unable to ambulate at this time. pt has dx of dementia and has difficulty following directions affecting mobility and safety awareness. pt will require SNF rehab to improve functional mobility and strength. Goals Bed Mobility Goal Minimal Assistance Transfer Goal Minimal Assistance,Front Wheeled Walker Gait Goal Minimal Assistance,Front Wheel Walker Gait Distance 50 Other Goals improve bed mobility, transfers to SBA using FWW improve ambulation using FWW 100 ft SBA Days to Meet Goals 10 Frequency of Treatment Frequency Of Treatment Twice a Day Treatment Plan Physical Therapy Treatment Plan Bed Mobility Training,Transfer Training,Gait Training, Therapeutic Exercise,Balance Retraining,Post Op Education, Discharge Planning,Hot or Cold Pack,Neuromuscular Re-ed, Coordination Retraining,Manual Therapy Precautions Other Precautions LLE WBAT Recommendations To Nursing Amount of Assist Needed 2 Person Assist Discharge Recommendations PT Discharge Recommendations SNF Rehab Transportation Needs at Discharge Wheelchair/Cabulance
--- NOTE | 2021-04-24 14:33 | CM.DPNOTE ---
Faxed [facility] referral packet to: [facility], [facility] [place], Skylar Webster. Received fax confirmation. Nasra Birch CM Asst.
[2021-04-24 15:15] VITALS: BP 145/80; PULSE 69; RESP 18; TEMP 36.9; O2SAT 96
[2021-04-24 20:23] VITALS: BP 165/73; PULSE 78
--- NOTE | 2021-04-24 22:10 | PC.NURSE ---
Pt pleasant and cooperative at start of shift. As evening became later pt started stating their was a somebody trying to shoot her. Move pt to room 207 to be closer to nurses station for safe monitoring. Attempting to get out of bed. Threatening staff, refusing HS meds. Hospitalist notified of behavior awaiting new orders.
[2021-04-24] MEDS: LORazepam 2 MG/ML INJ 0.5 MG IV (22:34)
[2021-04-24] MEDS: SODIUM CHLORIDE 0.9% FLUSH 10 ML IV (22:34)
[2021-04-25] MEDS: HALOPERIDOL 5 MG/ML VIAL 2 MG IV (00:56)
--- NOTE | 2021-04-25 06:57 | PC.NURSE ---
at start of die repairer stamping pat could be heard screaming for someone to call the police. prior shift had medicated with 0.5 mg Ativan IVP. upon first assessment pt refuses all care and is very restless mistrustful and agitated, pt swinging her arms and trying to climb out of bed. pt began to pull amin out and broke the adhesive device carroll the catheter. managed to place the amin under the patients leg to maintain adequate flow. pt very angry and threatening to hit and kick staff, calling staff foul names. pt rested for about an hour and awoke agitated. medicated with IVp Haldol 2mg but patient managed to rip off aquacell dressing and attempted to pull sharda out. attempted to cover with large tagaderm dressing however that was ineffective to prevent tampering with the wound, Johnny wrap placed over left thigh and patient let it alone for the most part. haldol kicked in about 0430 and p began to rest quietly.
[2021-04-25 08:00] VITALS: BP 160/73; PULSE 84; RESP 16; TEMP 37.1; O2SAT 94
[2021-04-25 08:41] LABS: Add Manual Diff / Slide Review NO; Basophils Absolute Auto 0 /uL (0-100); Basophils Percent Auto 0.4 % (0-2); Eosinophils Absolute Auto 200 /uL (0-450); Eosinophils Percent Auto 2.2 % (2-4); Hematocrit 31.1 % (36-46); Hemoglobin 10.6 g/dL (12.0-16.0); Lymphocytes Absolute Auto 700 /uL (1100-4500); Lymphocytes Percent Auto 9.4 % (25-40); Mean Corpuscular HGB Conc 34.1 % (30-36); Mean Corpuscular Hemoglobin 27.6 PG (26-34); Monocytes Absolute Auto 600 /uL (0-900); Monocytes Percent Auto 7.6 % (3-14); Neutrophils Absolute Auto 6000 /uL (1500-7000); Neutrophils Percent Auto 80.4 % (50-75); Platelet Count 158 X10^3/uL (150-400); Red Blood Cell Count 3.83 X10^6/uL (4.0-5.2); Red Cell Distribution Width 15.2 % (11.6-14.8); White Blood Cell Count 7.5 X10^3/uL (4.5-11.0)
[2021-04-25 09:01] LABS: BUN Creatinine Ratio 32.5 (6-22); Blood Urea Nitrogen 13 mg/dL (7-17); Calcium 9.1 mg/dL (8.4-10.2); Carbon Dioxide 26 mmol/L (22-32); Chloride 105 mmol/L (98-107); Estimated Glomerular Filt Rate > 60.0 mL/min (>60); Glucose 107 mg/dL (80-110); HEMOLYSIS 18 (0-50); Potassium 3.5 mmol/L (3.4-5.1); Sodium 137 mmol/L (137-145)
[2021-04-25 09:04] LABS: Hemoglobin A1C% w Est Avg Glu 5.2 % (4.0-6.0)
[2021-04-25] MEDS: DOCUSATE 100 MG CAPSULE PO ×2 (09:33→20:58)
[2021-04-25] MEDS: METFORMIN HCL 500 MG TABLET PO (09:33)
[2021-04-25] MEDS: ACETAMINOPHEN 325 MG TABLET 650 MG PO ×3 (09:33→20:57)
[2021-04-25] MEDS: atenoloL 50 MG TABLET PO ×2 (09:33→20:58)
[2021-04-25] MEDS: ASPIRIN EC 81 MG TABLET PO (09:33)
[2021-04-25] MEDS: ENOXAPARIN 40 MG/0.4 ML SYRINGE SUBCUT (09:33)
--- NOTE | 2021-04-25 11:00 | PM.PN.1 ---
Subjective Subjective Date Patient Seen: 04/25/21 Time Patient Seen: 08:30 Interval history: Patient states she has pain in her leg but it is much better today. She seems more coherent that prior tdays. She currently denies chest pain, shortness of breath, swelling, nausea, or vomiting. Exam Vital Signs (past 8 hours): - 04/25/21 08:00 Temperature 98.7 F Pulse Rate 84 Respiratory Rate 16 Blood Pressure 160/73 H Pulse Oximetry 94 Oxygen Delivery Method Nasal Cannula Oxygen Flow Rate 0 Narrative Exam Narrative: GENERAL APPEARANCE: chronically ill appearing confused elderly female, no acute distress. SKIN: Inspection of the skin reveals no rashes, ulcerations or petechiae. HEENT: Normocephalic atraumatic, extraocular muscles are intact, oropharynx is clear and mucous membranes are moist, neck is supple without adenopathy NECK: Supple and symmetric. There was no thyroid enlargement, and no tenderness, or masses were felt. LUNGS: Auscultation of the lungs revealed no wheezes, rhonchi, or rales. CARDIOVASCULAR: There was a regular rate and rhythm without any murmurs, gallops, rubs. Peripheral pulses were 2+ and symmetric. ABDOMEN: Soft, nontender, and nondistended MUSCULOSKELETAL: left hip dressing with some serosanguinous soaking of gauze, without significant calf swelling. appropriate tenderness on exam. EXTREMITIES: No cyanosis, clubbing or edema. No joint effusions. NEUROLOGIC: Oriented to name only, pleasantly confused. Follows commands, no obvious focal deficits. Objective Labs Result Diagrams: 04/25/21 08:28 04/25/21 08:28 Labs: Laboratory Results - last 24 hr 04/25/21 04/25/21 04/25/21 08:28 08:28 08:28 WBC 7.5 RBC 3.83 L Hgb 10.6 L Hct 31.1 L MCV 81.0 MCH 27.6 MCHC 34.1 RDW 15.2 H Plt Count 158 Neut % (Auto) 80.4 H Lymph % (Auto) 9.4 L Hays % (Auto) 7.6 Eos % (Auto) 2.2 Baso % (Auto) 0.4 Neut # (Auto) 6000 Lymph # (Auto) 700 L [place] # (Auto) 600 Eos # (Auto) 200 Baso # (Auto) 0 Sodium 137 Potassium 3.5 Chloride 105 Carbon Dioxide 26 BUN 13 Creatinine 0.40 L Estimated GFR > 60.0 BUN/Creatinine Ratio 32.5 H Glucose 107 Hemoglobin A1c 5.2 Calcium 9.1 PFSH Medical History Cancer of left breast Diabetes Hepatitis C Hip fracture History of prosthetic unicompartmental arthroplasty of both knees HTN (hypertension) Hyperlipidemia Left bundle branch block (LBBB) Non-small cell lung cancer Paroxysmal atrial fibrillation Port-A-Cath in place Right humeral fracture Surgical History History of carpal tunnel release Hx of cholecystectomy Hx of dilation and curettage Hx of tonsillectomy Hx of tubal ligation Social History household members: family Smoking Status: Former smoker alcohol intake: former Assessment & Plan Assessment & Plan narrative: This is an 80-year-old female with a past medical history of stage III lung adenocarcinoma status post chemo and radiation, breast cancer, hypertension, dementia, diabetes, and hyperlipidemia who presented after a ground level fall complaining of left hip pain. Hip imaging revealed a left femoral intertrochanteric fracture. Admitted to medicine with orthopedics consultation for operative management of L femoral neck fracture. 1. L femoral neck fracture, pathologic, acute, present on admission - Dr. Ocampo has consulted, placed intermedullary nail on 04/23. - plan for discharge to SNF in [facility] tomorrow, PT / OT assessments today. - pain seemingly controlled on current medications. 2. lung adenocarcinoma, right lung - no recent treatment. patient is s/p chemo and radiation per reports. CT imaging per son a few months ago showed no disease. CXR here with masslike consolidation of the RUL. - previous foot drop, recommended MRI in the past but patient did not wish to go per son. will see how she does with PT, may need imaging here if symptomatic. 3. HTN - elevated BP likely in setting of pain, continue home medications for now. Consider additional agent tomorrow if she remains hypertensive given improvement in pain after this AM. 4. type 2 diabetes - a1c 5.2%, on metformin. Given her age and dementia recommend discontinuing this medication. 5. HLD - continue home statin 6. paroxysmal atrial fibrillation - reported by son, not on blood thinner other than aspirin which the son states she takes only when she feels like it. Code: DNR, surrogate decision maker is patient's son BRI Ramirez. Dispo: Admit as inpatient. Plan for SNF tomorrow. DVT: per orthopedics after surgery. I have utilized all available immediate resources to obtain, update, or review the patient's current medications. COVID-19 COVID-19 status: Negative Quality VTE Deep Vein Thrombosis/Pulmonary Embolism Present on Admission: No
--- NOTE | 2021-04-25 11:37 | P.PN_ITS ---
Subjective Subjective Date Patient Seen: 04/25/21 Time Patient Seen: 11:37 Interval history: Patient is resting comfortably in bed, no acute distress. She is very disoriented overnight and was pulling at her catheter and managed to pull out 3 sharda at her surgical site. She states her pain is mild this morning but is very confused and is unable to follow commands very well. Exam Vital Signs (past 8 hours): - 04/25/21 08:00 Temperature 98.7 F Pulse Rate 84 Respiratory Rate 16 Blood Pressure 160/73 H Pulse Oximetry 94 Oxygen Delivery Method Nasal Cannula Oxygen Flow Rate 0 Narrative Exam Narrative: Patient is a pleasant but confused 80-year-old female, resting comfortably in bed, no acute distress. She is confsed, not answering commands correctly and therefore is having a difficult time participating in physical exam. Patient states bilateral calves are soft, nontender to palpation. One of her surgical sites, I removed the single remaining stable and replaced it with Steri-Strips. I also removed the Johnny wrap on her thigh. Objective Labs Result Diagrams: 04/25/21 08:28 04/25/21 08:28 Labs: Laboratory Results - last 24 hr 04/25/21 04/25/21 04/25/21 08:28 08:28 08:28 WBC 7.5 RBC 3.83 L Hgb 10.6 L Hct 31.1 L MCV 81.0 MCH 27.6 MCHC 34.1 RDW 15.2 H Plt Count 158 Neut % (Auto) 80.4 H Lymph % (Auto) 9.4 L [place]comb % (Auto) 7.6 Eos % (Auto) 2.2 Baso % (Auto) 0.4 Neut # (Auto) 6000 Lymph # (Auto) 700 L [place]comb # (Auto) 600 Eos # (Auto) 200 Baso # (Auto) 0 Sodium 137 Potassium 3.5 Chloride 105 Carbon Dioxide 26 BUN 13 Creatinine 0.40 L Estimated GFR > 60.0 BUN/Creatinine Ratio 32.5 H Glucose 107 Hemoglobin A1c 5.2 Calcium 9.1 PFSH Medical History Cancer of left breast Diabetes Hepatitis C Hip fracture History of prosthetic unicompartmental arthroplasty of both knees HTN (hypertension) Hyperlipidemia Left bundle branch block (LBBB) Non-small cell lung cancer Paroxysmal atrial fibrillation Port-A-Cath in place Right humeral fracture Surgical History History of carpal tunnel release Hx of cholecystectomy Hx of dilation and curettage Hx of tonsillectomy Hx of tubal ligation Social History household members: family Smoking Status: Former smoker alcohol intake: former Comment: dementia Assessment & Plan Post-op Assessment and plan (1) Dementia: Postoperative Procedures: Procedures Operation Date: 04/23/21 18:30 Actual Procedure Side Surgeon p ORIF Hip/Intramedullary Hip Screw Left Kayden Ocampo MD Postoperative status narrative: Patient is progressing slowly after a left hip cephalomedullary nail, partially due to her dementia Postoperative plan: routine post-op care Postoperative plan narrative: Lovenox for DVT prophylaxis for 4 weeks, weightbearing as tolerated left lower extremity with front wheeled walker. The plan is discharge to SNF tomorrow. Mobilize with physical therapy. Quality VTE Deep Vein Thrombosis/Pulmonary Embolism Present on Admission: No
--- NOTE | 2021-04-25 11:45 | PC.NURSE ---
Day shift note: Patient awake, alert, and oriented to self only. Unaware of place, time, and situation. Spoke with son Tod via phone after breakfast. This RN updated Tod by phone. PA at bedside, staple to left lateral mid thigh removed by PA and steri strip placed. Aquacel to lateral upper thigh with saturation to distal end, PA aware. No new active bleeding. IV site removed, site compromised. Bed alarm, active, high fall risk precautions maintained.
--- NOTE | 2021-04-25 12:31 | PT.IPTN ---
Current Diagnoses Unspecified dementia without behavioral disturbance (04/23/21) Pathological fracture, left femur, initial encounter for fracture (04/23/21) Surgery Performed Operation Date: 04/23/21 18:30 Actual Procedures p ORIF Hip/Intramedullary Hip Screw(Left) - Kayden Ocampo MD Physical Therapy Treatment Note M2 PT-IP Current Condition Start: 04/24/21 12:49 Freq: NEEDED Status: Active Protocol: Document 04/24/21 10:10 AB (Rec: 04/24/21 13:01 AB [id number]) Physical Therapy Current Condition Current Condition Evaluation Date 04/24/21 Treatment Diagnosis GLF; L femur fx s/p nailing; difficulty in walking Onset Date 04/23/21 Weight Bearing Status Weight Bearing Status Weight Bear as Tolerated Allowed Weight Bearing Amount (enter % LLE WBAT or #) (%) M3 PT-IP Subjective Start: 04/24/21 12:49 Freq: NEEDED Status: Active Protocol: Document 04/25/21 12:10 CLB (Rec: 04/25/21 13:19 CLB [id number]) Subjective Physical Therapy Visit Type Type Treatment Note Visit Start Time 12:10 Visit Stop Time 12:21 Total Visit Minutes 21 Number of REAL ESTATE SALES ASSOCIATE Visits 1 Physical Therapy Visit Comments Patient Comments Pt pleasant and willing to get up from bed and transfer to chair. Therapy Pain Assessment Pain When Pain Assessed During Mobility Pain Present Pain Present Pain Reported M4 PT-IP Mobility and Gait Start: 04/24/21 12:49 Freq: NEEDED Status: Active Protocol: Document 04/25/21 12:10 CLB (Rec: 04/25/21 13:19 CLB [id number]) PT-Bed Mobility Assessment Supine to Sit Supine to Sit Maximum Assistance,1 Person Assistance,Head of Bed Elevated Scooting Scooting to Edge of Bed Maximum Assistance PT-Transfer Assessment Sit to and From Stand Sit to and from Stand Moderate Assistance,2 Person Assistance,Use of Upper Extremities Equipment Transfer Assistive Device Gait Belt,Front Wheeled Walker Orthotic/Prosthetic Devices or Brace: No Transfers Transfer Destination Chair Transfer Technique Stand Step Pivot Transfer Ability Level of Assist Maximum Assistance,2 Person Assistance,Use of Upper Extremities Comments Mobility Comments Pt requires max cues during tx and able to follow one step commands, pt gets easily distracted requiring redirecting to stay on task. Pt required assist of LLE off of bed then Max A to scoot forward to EOB. Pt stood requiring Mod A x2. Pt with buckling of LLE sat back down on bed. Pt then stood again and able to take pivoting steps with cues to use UE's to off load weight of LLE. Pt then required Mod A for sitting in chair. Pt left in chair with all needs within reach and BRAKE OPERATOR HEAVY DUTY present in room placing chair alarm on. Gait Assessment Comments Gait Comments unable at this time M5 PT-IP Objective Assessments Start: 04/24/21 12:49 Freq: NEEDED Status: Active Protocol: Document 04/24/21 10:10 AB (Rec: 04/24/21 13:01 AB [id number]) Orientation Orientation/Cognition Level of Alertness Confusional State Orientation Name Safety Awareness Decreased Safety Awareness Memory Description Short Term Impaired,Yard Attendant Impaired Gross Range of Motion Lower Extremity ROM Assessment Within Functional Limits Strength Lower Extremity Strength Assessment Bilaterally Impaired Comments Strength Comments RLE: 3+/5 LLE: 2+/5 Muscle Tone Muscle Tone WNL Yes M6 PT-IP Treatment Start: 04/24/21 12:49 Freq: NEEDED Status: Active Protocol: Document 04/24/21 13:55 AB (Rec: 04/24/21 16:04 AB [id number]) Physical Therapy Treatment Education Education Provided Safety M7 PT-IP Assessment and Plan Start: 04/24/21 12:49 Freq: NEEDED Status: Active Protocol: Document 04/25/21 12:10 CLB (Rec: 04/25/21 13:19 CLB [id number]) PT Summary Assessment and Plan Potential Rehabilitation Potential Fair Summary Impairments Pain,ROM,Strength,Balance, Coordination,Sensation,Tone, Cognition,Bed Mobility, Transfers,Gait,Activity Tolerance Progress Towards Goals Slow Progress due to Pain,Slow Progress - Other Assessment Summary Pt requiring Max A x1 for bed mobility, Mod A x2 for sit- stand and Max A with max verbal and tactile cues with one step commands and constant redirection to stay on task. Pt will require SNF rehab to improve functional mobility and strength. Goals Bed Mobility Goal Minimal Assistance Transfer Goal Minimal Assistance,Front Wheeled Walker Gait Goal Minimal Assistance,Front Wheel Walker Gait Distance 50 Other Goals improve bed mobility, transfers to SBA using FWW improve ambulation using FWW 100 ft SBA Days to Meet Goals 10 Frequency of Treatment Frequency Of Treatment Twice a Day Treatment Plan Physical Therapy Treatment Plan Bed Mobility Training,Transfer Training,Gait Training, Therapeutic Exercise,Balance Retraining,Post Op Education, Discharge Planning,Hot or Cold Pack,Neuromuscular Re-ed, Coordination Retraining,Manual Therapy Precautions Other Precautions LLE WBAT Recommendations To Nursing Amount of Assist Needed 2 Person Assist Discharge Recommendations PT Discharge Recommendations SNF Rehab Transportation Needs at Discharge Wheelchair/Cabulance
--- NOTE | 2021-04-25 12:34 | OT.IP.EVAL ---
Current Diagnoses Unspecified dementia without behavioral disturbance (04/23/21) Pathological fracture, left femur, initial encounter for fracture (04/23/21) Surgery Performed Operation Date: 04/23/21 18:30 Actual Procedures p ORIF Hip/Intramedullary Hip Screw(Left) - Kayden Ocampo MD Past Medical History (Last Reviewed 04/25/21 @ 11:41 by Connie Griffin PA-C) Cancer of left breast Diabetes Hepatitis C Hip fracture History of carpal tunnel release History of prosthetic unicompartmental arthroplasty of both knees HTN (hypertension) Hx of cholecystectomy Hx of dilation and curettage Hx of tonsillectomy Hx of tubal ligation Hyperlipidemia Left bundle branch block (LBBB) Non-small cell lung cancer Paroxysmal atrial fibrillation Port-A-Cath in place Right humeral fracture Surgical History (Last Reviewed 04/25/21 @ 11:41 by Connie Griffin PA-C) History of carpal tunnel release Hx of cholecystectomy Hx of dilation and curettage Hx of tonsillectomy Hx of tubal ligation Occupational Therapy Inpatient Evaluation/Re-Eval M1 PT/OT-IP Prior Functional Status Start: 04/24/21 12:49 Freq: NEEDED Status: Active Protocol: Document 04/25/21 12:14 [facility] (Rec: 04/25/21 13:21 [facility] [id number]) Medical Review Prior Functional Status Medical History Reviewed Yes Communication pt with dx of dementia and is not oriented to place, time and situation and has difficulty following directions Mobility and Gait per son: pt is modified independent with all mobilities at home and ambulation without AD but uses a FWW on and off depending on LLE pain Activities of Daily Living and IADL's OT called pt's son and he states she was independent with all ADL's, able to make coffee, use the microwave and do laundry on her own. Social History Household Members family Living Arrangements House Number of Floors (Floors) One Floor Number of Stairs To Enter/Railing? ramp to enter Home Environment Standard Height Toilet,Walk in Shower Home Equipment Front Wheel Walker,Four Wheel Walker,Raised Toilet Seat Without Armrests,Hand Held Shower,Grab Bars Near Toilet, Grab Bars In Shower Additional Social History Comment pt lives with her son James but son works son said that pt uses her 4WW to sit on when she take her shower M2 OT-IP Current Condition Start: 04/25/21 12:53 Freq: Status: Active Protocol: Document 04/25/21 12:14 [facility] (Rec: 04/25/21 13:21 [facility] [id number]) Occupational Therapy Current Condition Current Condition Evaluation Date 04/25/21 Treatment Diagnosis GLF, s/p Left femor fx/ s/p nailing, decreased mobility Diagnosis Onset Date 04/23/21 Weight Bearing Status Weight Bearing Status Weight Bear as Tolerated M3 OT- IP Subjective and Pain Start: 04/25/21 12:53 Freq: Status: Active Protocol: Document 04/25/21 12:14 [facility] (Rec: 04/25/21 13:21 [facility] [id number]) OT- Subjective Occupational Therapy Visit Type Type Initial Evaluation Visit Start Time 12:14 Visit Stop Time 12:34 Total Visit Minutes 20 Occupational Therapy Visit Comments Patient Comments Pt agreed to get up. TYPING SECTION CHIEF present as pt needing extensive assist for mobility needs. Patient/Caregiver Goals TO go home. OT Pain Assessment Pain When Pain Assessed During Mobility Pain Present Pain Present Unable to Respond FLACC Pain Scale Face Frequent/constant frown M4 OT- IP ADL's Start: 04/25/21 12:53 Freq: Status: Active Protocol: Document 04/25/21 12:14 [facility] (Rec: 04/25/21 13:21 [facility] [id number]) OT [id number] Comments OT Self-Feeding Comments NOt at meal time. OT ADL-Grooming Comments OT Grooming Comments Not performed. OT ADL-Oral Care Comments Oral Care Comments Not performed. OT ADL-Dressing General Eval Lower Body Dressing Ability Maximum Assistance OT ADL-Toileting General Evaluation Toileting Ability Total Assistance Areas Needing Assistance Empty Catheter or Colostomy Comments OT Toileting Comments Pt has amin in place. OT ADL-Bathing Comments OT Bathing Comments Not performed. M5 OT- IP IADL's Start: 04/25/21 12:53 Freq: Status: Active Protocol: Document 04/25/21 12:14 [facility] (Rec: 04/25/21 13:21 [facility] [id number]) OT-Instrumental Activities of Daily Living Deficits IADL Deficits Identified Deficits Home Safety Awareness Awareness of Need for Assistance at Home Decreased Awareness Ability to Problem Solve Emergency Unable to Problem Solve Situations Medication Management Medication Management Caregiver Administers Money Management Money Management Caregiver Provides Assistance Meal Preparation Meal Preparation Comments At this time pt will need assist. Radiology Services Manager Radiology Services Manager Comments At this time pt will need assist. Driving Driving Caregiver Provides Assist M6 OT- IP Functional Cognition Start: 04/25/21 12:53 Freq: Status: Active Protocol: Document 04/25/21 12:14 [facility] (Rec: 04/25/21 13:21 [facility] [id number]) Cognitive Factors Limiting Selfcare Function Cognitive Ability Level of Alertness Alert,Confusional State Patient Orientation Name Attention Span Ability Capable of Focused Attention, Capable of Sustained Attention Ability to Follow Commands Able to Follow One Step Commands with Increased Time, Able to Follow One Step Commands with Repetition Memory Description Short Term Impaired,Pharmacovigilance Scientist Impaired Cognitive Comments Cognitive Assessment Comments Per medical chart pt has dementia. Pt's son states pt is at home alone while he works and able to function and he only calls to check on her throughout the day. Pt having trouble to initiate, follow commands, needing step by step commands and tactile to follow. Pt was cooperative and needing encouragement and redirection to stay on task. OT- Vision and Hearing OT- Vision Assessment Visual Acuity Glasses For Reading M7 OT- IP Mobility and Balance Start: 04/25/21 12:53 Freq: Status: Active Protocol: Document 04/25/21 12:14 [facility] (Rec: 04/25/21 13:21 [facility] [id number]) OT- Bed Mobility Assessment Supine to Sit Supine to Sit Assist Maximum Assistance,Total Assistance,Head of Bed Elevated,Bedrails Scooting Scooting to Edge of Bed Maximum Assistance,1 Person Assistance OT-Transfer Assessment Sit to and From Stand Sit to and from Stand Moderate Assistance,2 Person Assistance Transfers Transfer Ability Maximum Assistance,2 Person Assistance Technique Transfer Destination Bed,Chair Transfer Technique Stand Step Pivot Devices Transfer Assistive Devices Gait Belt,Front Wheeled Walker Comments Mobility Comments MAX A X1 from HOB up and EOB. Pt needing assist to move her LLE. Use of green pad to help get her hips out to the edge of the bed. MODA X 2 to stand and pt having to hold FWW to assist to stand. MAX A XAx2 for transfer only as pt has difficulty to put weight on her LLE to be able to move her right foot. Pt transferred to the right . OT- Gait Assessment Comments Gait Ability Comments Not at this time. OT- Balance Assessment Sitting Balance and Reactions Static Sitting Balance Ability Normal Dynamic Sitting Balance Ability Good Standing Balance and Reactions Static Standing Balance Ability Poor M8 OT- IP Objective Assessments Start: 04/25/21 12:53 Freq: Status: Active Protocol: Document 04/25/21 12:14 [facility] (Rec: 04/25/21 13:21 [facility] [id number]) OT Gross Range of Motion Upper Extremity Range of Motion ROM Impairments WFL for transfers OT-Muscle Tone Assessment Muscle Tone WNL Yes M9 OT- IP Assessment and Plan Start: 04/25/21 12:53 Freq: Status: Active Protocol: Document 04/25/21 12:14 [facility] (Rec: 04/25/21 13:21 [facility] [id number]) OT Summary Assessment and Plan Potential Rehabilitation Potential Fair Analytic Complexity at Evaluation Moderate Summary OT Impairments Pain,Balance,Functional Cognition,Functional Mobility, Grooming,Dressing,Toileting, Bathing,Toilet Transfers, Shower Transfers,Activity Tolerance Progress Towards Goals Slow Progress due to Pain,Slow Progress due to Medical Issues,Slow Progress due to Activity Tolerance,Slow Progress due to Cognition Assessment Summary Pt MOD complexity and main barriers are pain, decreased ability to follow commands at this time, and needing extensive two person assist for ADl and mobility needs. Pt is far from her baseline of mostly MOD I for mobility and ADl needs. Pt is cooperative but needs step by step commands, encouragement, and better to explain to pt what is happening step by step. Pt would greatly benefit from skilled rehab when medically stable. Goals Grooming Goal Independent Dressing Goal Independent Toileting Goal Independent Bathing Goal Independent Toilet Transfer Goal Independent Shower Transfer Goal Independent Days to Meet Goals 30 Frequency of Treatment Frequency Of Treatment Once a Day Treatment Plan OT Treatment Plan ADL Training,Functional Cognition Training,Functional Mobility,Patient/Family Education,Discharge Planning Other Treatment Recommendations and Next Transfer to [facility] with MODA X 2 Treatment Focus with FWW. Discharge Recommendations OT Discharge Recommendations SNF Rehab Transportation Needs at Discharge Wheelchair/Cabulance
[2021-04-25 12:35] VITALS: BP 82/58; PULSE 67; RESP 16; TEMP 36.9; O2SAT 96
[2021-04-25 14:54] VITALS: BP 126/65; PULSE 94
[2021-04-25 15:35] VITALS: BP 137/57; PULSE 76; RESP 14; TEMP 36.6; O2SAT 97
--- NOTE | 2021-04-25 16:52 | PT.IPTN ---
Current Diagnoses Unspecified dementia without behavioral disturbance (04/23/21) Pathological fracture, left femur, initial encounter for fracture (04/23/21) Surgery Performed Operation Date: 04/23/21 18:30 Actual Procedures p ORIF Hip/Intramedullary Hip Screw(Left) - Kayden Ocampo MD Physical Therapy Treatment Note M2 PT-IP Current Condition Start: 04/24/21 12:49 Freq: NEEDED Status: Active Protocol: Document 04/24/21 10:10 [facility] (Rec: 04/24/21 13:01 [facility] [id number]) Physical Therapy Current Condition Current Condition Evaluation Date 04/24/21 Treatment Diagnosis GLF; L femur fx s/p nailing; difficulty in walking Onset Date 04/23/21 Weight Bearing Status Weight Bearing Status Weight Bear as Tolerated Allowed Weight Bearing Amount (enter % LLE WBAT or #) (%) M3 PT-IP Subjective Start: 04/24/21 12:49 Freq: NEEDED Status: Active Protocol: Document 04/25/21 16:37 [facility] (Rec: 04/25/21 17:10 [facility] [id number]) Subjective Physical Therapy Visit Type Type Treatment Note Visit Start Time 16:37 Visit Stop Time 16:52 Total Visit Minutes 15 Notes Son James present during tx. Number of DIAL REFINISHER Visits 2 Physical Therapy Visit Comments Patient Comments Pt wanted to stay in chair but agreed to do sit-stand activity. Therapy Pain Assessment Pain When Pain Assessed During Mobility Pain Present Pain Present Pain Reported Location Left Hip Scale Used pain scale not stated Pain Management Techniques Distraction,Modification of Treatment,Re-positioning M4 PT-IP Mobility and Gait Start: 04/24/21 12:49 Freq: NEEDED Status: Active Protocol: Document 04/25/21 16:37 [facility] (Rec: 04/25/21 17:10 [facility] [id number]) PT-Transfer Assessment Sit to and From Stand Sit to and from Stand Maximum Assistance,2 Person Assistance,Use of Upper Extremities Equipment Transfer Assistive Device Gait Belt,Front Wheeled Walker Orthotic/Prosthetic Devices or Brace: No Transfers Transfer Destination Chair Transfer Technique Stand Step Pivot Comments Mobility Comments Pt performed sit<>stand three times requiring Max A x2 from chair. Son present to assist with encouraging pt to do sit- stand. Pt left in chair with chair alarm on and OFFICE MACHINES WIRER present . Gait Assessment Comments Gait Comments unable at this time M5 PT-IP Objective Assessments Start: 04/24/21 12:49 Freq: NEEDED Status: Active Protocol: Document 04/24/21 10:10 [facility] (Rec: 04/24/21 13:01 [facility] [id number]) Orientation Orientation/Cognition Level of Alertness Confusional State Orientation Name Safety Awareness Decreased Safety Awareness Memory Description Short Term Impaired,Alf Impaired Gross Range of Motion Lower Extremity ROM Assessment Within Functional Limits Strength Lower Extremity Strength Assessment Bilaterally Impaired Comments Strength Comments RLE: 3+/5 LLE: 2+/5 Muscle Tone Muscle Tone WNL Yes M6 PT-IP Treatment Start: 04/24/21 12:49 Freq: NEEDED Status: Active Protocol: Document 04/24/21 13:55 [facility] (Rec: 04/24/21 16:04 [facility] [id number]) Physical Therapy Treatment Education Education Provided Safety M7 PT-IP Assessment and Plan Start: 04/24/21 12:49 Freq: NEEDED Status: Active Protocol: Document 04/25/21 16:37 [facility] (Rec: 04/25/21 17:10 [facility] [id number]) PT Summary Assessment and Plan Potential Rehabilitation Potential Fair Summary Impairments Pain,ROM,Strength,Balance, Coordination,Sensation,Tone, Cognition,Bed Mobility, Transfers,Gait,Activity Tolerance Progress Towards Goals Slow Progress due to Pain,Slow Progress - Other Assessment Summary Pt requiring Max A x2 from chair during sit-stand. Pt's son James present and assisted with sit-stand activity. Pt will require SNF rehab to improve functional mobility and strength. Goals Bed Mobility Goal Minimal Assistance Transfer Goal Minimal Assistance,Front Wheeled Walker Gait Goal Minimal Assistance,Front Wheel Walker Gait Distance 50 Other Goals improve bed mobility, transfers to SBA using FWW improve ambulation using FWW 100 ft SBA Days to Meet Goals 10 Frequency of Treatment Frequency Of Treatment Twice a Day Treatment Plan Physical Therapy Treatment Plan Bed Mobility Training,Transfer Training,Gait Training, Therapeutic Exercise,Balance Retraining,Post Op Education, Discharge Planning,Hot or Cold Pack,Neuromuscular Re-ed, Coordination Retraining,Manual Therapy Precautions Other Precautions LLE WBAT Recommendations To Nursing Amount of Assist Needed 2 Person Assist Discharge Recommendations PT Discharge Recommendations SNF Rehab Transportation Needs at Discharge Wheelchair/Cabulance
[2021-04-25 19:25] VITALS: BP 155/93; PULSE 89; RESP 16; TEMP 37.1; O2SAT 95
[2021-04-25] MEDS: QUETIAPINE 25 MG TABLET 12.5 MG PO (20:58)
[2021-04-26 00:05] VITALS: PULSE 85; RESP 16; TEMP 36.1; O2SAT 93
[2021-04-26 06:00] VITALS: BP 167/83; PULSE 92; RESP 16; TEMP 36.1; O2SAT 96
[2021-04-26 06:25] LABS: Add Manual Diff / Slide Review NO; Basophils Absolute Auto 0 /uL (0-100); Basophils Percent Auto 0.2 % (0-2); Eosinophils Absolute Auto 200 /uL (0-450); Eosinophils Percent Auto 3.9 % (2-4); Hematocrit 31.8 % (36-46); Hemoglobin 10.8 g/dL (12.0-16.0); Lymphocytes Absolute Auto 700 /uL (1100-4500); Lymphocytes Percent Auto 12.5 % (25-40); Mean Corpuscular HGB Conc 33.8 % (30-36); Mean Corpuscular Hemoglobin 27.5 PG (26-34); Mean Corpuscular Volume 81.2 fL (80-100); Monocytes Absolute Auto 500 /uL (0-900); Monocytes Percent Auto 8.2 % (3-14); Neutrophils Absolute Auto 4400 /uL (1500-7000); Neutrophils Percent Auto 75.2 % (50-75); Platelet Count 159 X10^3/uL (150-400); Red Blood Cell Count 3.92 X10^6/uL (4.0-5.2); Red Cell Distribution Width 15.2 % (11.6-14.8); White Blood Cell Count 5.8 X10^3/uL (4.5-11.0)
--- NOTE | 2021-04-26 06:30 | P.PN_ITS ---
Subjective Subjective Date Patient Seen: 04/26/21 Time Patient Seen: 06:30 Interval history: Patient is confused but alert. Denies pain. Exam Vital Signs (past 8 hours): - 04/26/21 00:05 04/26/21 06:00 Temperature 97.0 F L 97.0 F L Pulse Rate 85 92 H Respiratory Rate 16 16 Blood Pressure 167/83 H Pulse Oximetry 93 96 Oxygen Delivery Method Nasal Cannula Oxygen Flow Rate 0 Narrative Exam Narrative: 80-year-old female sitting up in bed in no apparent distress. Dressings are Clean, dry, intact.. Motor functions intact distally. Sensation grossly intact to light touch. Objective Labs Result Diagrams: 04/26/21 06:05 04/25/21 08:28 Labs: Laboratory Results - last 24 hr 04/25/21 04/25/21 04/25/21 08:28 08:28 08:28 WBC 7.5 RBC 3.83 L Hgb 10.6 L Hct 31.1 L MCV 81.0 MCH 27.6 MCHC 34.1 RDW 15.2 H Plt Count 158 Neut % (Auto) 80.4 H Lymph % (Auto) 9.4 L D[place]y % (Auto) 7.6 Eos % (Auto) 2.2 Baso % (Auto) 0.4 Neut # (Auto) 6000 Lymph # (Auto) 700 L [place] # (Auto) 600 Eos # (Auto) 200 Baso # (Auto) 0 Sodium 137 Potassium 3.5 Chloride 105 Carbon Dioxide 26 BUN 13 Creatinine 0.40 L Estimated GFR > 60.0 BUN/Creatinine Ratio 32.5 H Glucose 107 Hemoglobin A1c 5.2 Calcium 9.1 04/26/21 06:05 WBC 5.8 RBC 3.92 L Hgb 10.8 L Hct 31.8 L MCV 81.2 MCH 27.5 MCHC 33.8 RDW 15.2 H Plt Count 159 Neut % (Auto) 75.2 H Lymph % (Auto) 12.5 L D[place]y % (Auto) 8.2 Eos % (Auto) 3.9 Baso % (Auto) 0.2 Neut # (Auto) 4400 Lymph # (Auto) 700 L D[place]y # (Auto) 500 Eos # (Auto) 200 Baso # (Auto) 0 Sodium Potassium Chloride Carbon Dioxide BUN Creatinine Estimated GFR BUN/Creatinine Ratio Glucose Hemoglobin A1c Calcium [facility] Medical History Cancer of left breast Diabetes Hepatitis C Hip fracture History of prosthetic unicompartmental arthroplasty of both knees HTN (hypertension) Hyperlipidemia Left bundle branch block (LBBB) Non-small cell lung cancer Paroxysmal atrial fibrillation Port-A-Cath in place Right humeral fracture Surgical History History of carpal tunnel release Hx of cholecystectomy Hx of dilation and curettage Hx of tonsillectomy Hx of tubal ligation Social History household members: family Smoking Status: Former smoker alcohol intake: former Assessment & Plan Post-op Postoperative Procedures: Procedures Operation Date: 04/23/21 18:30 Actual Procedure Side Surgeon p ORIF Hip/Intramedullary Hip Screw Left Kayden Ocampo MD Postoperative day: 3 Postoperative status narrative: Stable Postoperative plan narrative: Status post left hip short cephalomedullary nail April 23, 2021. Lovenox for DVT prophylaxis 6 x 4 weeks. Weightbearing as tolerated left lower extremity. Follow-up [facility] in 2 weeks. Discharge when medically stable per hospitalist Quality VTE Deep Vein Thrombosis/Pulmonary Embolism Present on Admission: No
[2021-04-26 06:37] LABS: BUN Creatinine Ratio 22.2 (6-22); Blood Urea Nitrogen 12 mg/dL (7-17); Calcium 9.1 mg/dL (8.4-10.2); Carbon Dioxide 30 mmol/L (22-32); Chloride 102 mmol/L (98-107); Estimated Glomerular Filt Rate > 60.0 mL/min (>60); Glucose 103 mg/dL (80-110); HEMOLYSIS < 15 (0-50); Potassium 3.7 mmol/L (3.4-5.1); Sodium 137 mmol/L (137-145)
[2021-04-26 08:00] VITALS: BP 139/66; PULSE 87; RESP 17; TEMP 36.8; O2SAT 97
[2021-04-26] MEDS: ASPIRIN EC 81 MG TABLET PO (08:49)
[2021-04-26] MEDS: ACETAMINOPHEN 325 MG TABLET 650 MG PO ×2 (08:50→15:04)
[2021-04-26] MEDS: atenoloL 50 MG TABLET PO (08:50)
[2021-04-26] MEDS: ENOXAPARIN 40 MG/0.4 ML SYRINGE SUBCUT (08:51)
[2021-04-26] MEDS: DOCUSATE 100 MG CAPSULE PO ×2 (09:00→20:30)
--- NOTE | 2021-04-26 09:30 | PC.NURSE ---
Addendum entered by Dedra Graham R.N. 04/26/21 14:05: at 1300 pt more confused. agitated and not letting staff even touch her. Pt amin cath was discontinue at 1020. Pt also had glycerin suppository due to not having a bowel movement since surgery. Original Note: SCD's not on due to increase confusion, pt is on Lovenox
[2021-04-26] MEDS: GLYCERIN SUPP ADULT 1 SUPP 1 EACH PR (10:11)
--- NOTE | 2021-04-26 10:54 | CM.DPC ---
Addendum entered by Kristie Luna R.N. 04/26/21 14:47: Sofia at [facility] will review, if no problems over night, and accepts care, may be able to accept tomorrow. Addendum entered by Kristie Lnua R.N. 04/26/21 13:27: Met briefly with patient's son, James, who was in the room. Updated him that [facility] is considering, but may not be able to accept until Wednesday. At this time, [facility] has declined, as well as [facility] and [facility]. Left [facility] and [facility] a message to ensure that they can't accept, since patient has not noted any current agitation. Addendum entered by Kristie Luna R.N. 04/26/21 11:41: Sent [facility] notes from P.T. and O.T. from yesterday, and nursing note. Discussed patient during team rounds, and behaviors have improved, according to hospitalist. Will send therapy notes from today to [facility]. Original Note: DCP Cont: Spoke to Nneka at [facility]. She stated, they can't accept patient due to staff, not being able to accomidate her behaviors. Let her know that patient has been having decreased behavioral issues, since she had surgery on the , and is on a low dose of Seroquel. She indicated, they still can't accept her. Called Sofia at [facility]. Stated, they most likely can accept, but need further documentation about her behaviors. Stated, they most likely can't accept her until Wednesday. According to notes, [facility] and [facility] have both declined. Kristie Luna, RN/Keg Inspector
--- NOTE | 2021-04-26 11:43 | PT.IPTN ---
Current Diagnoses Unspecified dementia without behavioral disturbance (04/23/21) Pathological fracture, left femur, initial encounter for fracture (04/23/21) Surgery Performed Operation Date: 04/23/21 18:30 Actual Procedures p ORIF Hip/Intramedullary Hip Screw(Left) - Kayden Ocampo MD Physical Therapy Treatment Note M2 PT-IP Current Condition Start: 04/24/21 12:49 Freq: NEEDED Status: Active Protocol: Document 04/24/21 10:10 [facility] (Rec: 04/24/21 13:01 AB [id number]) Physical Therapy Current Condition Current Condition Evaluation Date 04/24/21 Treatment Diagnosis GLF; L femur fx s/p nailing; difficulty in walking Onset Date 04/23/21 Weight Bearing Status Weight Bearing Status Weight Bear as Tolerated Allowed Weight Bearing Amount (enter % LLE WBAT or #) (%) M3 PT-IP Subjective Start: 04/24/21 12:49 Freq: NEEDED Status: Active Protocol: Document 04/26/21 11:15 [facility] (Rec: 04/26/21 13:32 [facility] [id number]) Subjective Physical Therapy Visit Type Type Treatment Note Visit Start Time 11:15 Visit Stop Time 11:43 Total Visit Minutes 28 Notes Co-treat with OT Number of FREIGHT BRAKE OPERATOR Visits 3 Physical Therapy Visit Comments Patient Comments Pt agreeable to transfer to chair after jarad Ramirez was present. Therapy Pain Assessment Pain When Pain Assessed During Mobility Pain Present Pain Present Pain Reported Location Left Hip Scale Used pain scale not stated Pain Management Techniques Distraction,Modification of Treatment,Re-positioning M4 PT-IP Mobility and Gait Start: 04/24/21 12:49 Freq: NEEDED Status: Active Protocol: Document 04/26/21 11:15 [facility] (Rec: 04/26/21 13:32 [facility] [id number]) PT-Bed Mobility Assessment Supine to Sit Supine to Sit Maximum Assistance,1 Person Assistance,Head of Bed Elevated Scooting Scooting to Edge of Bed Maximum Assistance PT-Transfer Assessment Sit to and From Stand Sit to and from Stand Maximum Assistance,2 Person Assistance,Use of Upper Extremities Equipment Transfer Assistive Device Gait Belt,Front Wheeled Walker Orthotic/Prosthetic Devices or Brace: No Transfers Transfer Destination Chair Transfer Technique Stand Step Pivot Transfer Ability Level of Assist Maximum Assistance,2 Person Assistance,Use of Upper Extremities Comments Mobility Comments Pt continues to require Max A for bed mobility and sit-stand with increased assist with transfer as pt was unable to bear wt on LLE to advance right leg towards chair. Pt reached back to sit on chair before it was unsafe and required Max A for sitting quickly. Pt left in chair with all needs within reach and chair alarm on. Gait Assessment Comments Gait Comments unable at this time M5 PT-IP Objective Assessments Start: 04/24/21 12:49 Freq: NEEDED Status: Active Protocol: Document 04/24/21 10:10 AB (Rec: 04/24/21 13:01 AB [id number]) Orientation Orientation/Cognition Level of Alertness Confusional State Orientation Name Safety Awareness Decreased Safety Awareness Memory Description Short Term Impaired,Half-Way Impaired Gross Range of Motion Lower Extremity ROM Assessment Within Functional Limits Strength Lower Extremity Strength Assessment Bilaterally Impaired Comments Strength Comments RLE: 3+/5 LLE: 2+/5 Muscle Tone Muscle Tone WNL Yes M6 PT-IP Treatment Start: 04/24/21 12:49 Freq: NEEDED Status: Active Protocol: Document 04/26/21 11:15 [facility] (Rec: 04/26/21 13:32 [facility] [id number]) Physical Therapy Treatment Exercises Exercises Seated Knee Flexion/Extension M7 PT-IP Assessment and Plan Start: 04/24/21 12:49 Freq: NEEDED Status: Active Protocol: Document 04/26/21 11:15 [facility] (Rec: 04/26/21 13:32 [facility] [id number]) PT Summary Assessment and Plan Summary Impairments Pain,ROM,Strength,Balance, Coordination,Sensation,Tone, Cognition,Bed Mobility, Transfers,Gait,Activity Tolerance Progress Towards Goals Slow Progress due to Pain,Slow Progress - Other Assessment Summary Pt fearful to get up and transfer but son James able to talk with pt and she then agreed to transfer. Pt continues to require Max A for bed mobility and Max A x2 for sit-stand and transfer. Pt will require SNF rehab to increase strength for functional mobility. Goals Bed Mobility Goal Minimal Assistance Transfer Goal Minimal Assistance,Front Wheeled Walker Gait Goal Minimal Assistance,Front Wheel Walker Gait Distance 50 Other Goals improve bed mobility, transfers to SBA using FWW improve ambulation using FWW 100 ft SBA Days to Meet Goals 10 Frequency of Treatment Frequency Of Treatment Twice a Day Treatment Plan Physical Therapy Treatment Plan Bed Mobility Training,Transfer Training,Gait Training, Therapeutic Exercise,Balance Retraining,Post Op Education, Discharge Planning,Hot or Cold Pack,Neuromuscular Re-ed, Coordination Retraining,Manual Therapy Precautions Other Precautions LLE WBAT Recommendations To Nursing Amount of Assist Needed 2 Person Assist,Mechanical Lift Discharge Recommendations PT Discharge Recommendations SNF Rehab Transportation Needs at Discharge Wheelchair/Cabulance
--- NOTE | 2021-04-26 11:43 | OT.IP.TRT ---
Current Diagnoses Unspecified dementia without behavioral disturbance (04/23/21) Pathological fracture, left femur, initial encounter for fracture (04/23/21) Surgery Performed Operation Date: 04/23/21 18:30 Actual Procedures p ORIF Hip/Intramedullary Hip Screw(Left) - Kayden Ocampo MD Occupational Therapy Treatment Note M2 OT-IP Current Condition Start: 04/25/21 12:53 Freq: Status: Active Protocol: Document 04/25/21 12:14 [facility] (Rec: 04/25/21 13:21 [facility] [id number]) Occupational Therapy Current Condition Current Condition Evaluation Date 04/25/21 Treatment Diagnosis GLF, s/p Left femur fx/ s/p nailing, decreased mobility Diagnosis Onset Date 04/23/21 Weight Bearing Status Weight Bearing Status Weight Bear as Tolerated M3 OT- IP Subjective and Pain Start: 04/25/21 12:53 Freq: Status: Active Protocol: Document 04/26/21 11:51 [facility] (Rec: 04/26/21 12:04 [facility] [id number]) OT- Subjective Occupational Therapy Visit Type Type Treatment Note Visit Start Time 11:15 Visit Stop Time 11:43 Total Visit Minutes 28 Occupational Therapy Visit Comments Patient Comments Pt's son in the room for the beginning and end of the session. CORPORATE TAX MANAGER also present to assist. Pt's son states pt has drop foot and has a brace/strapping for it. Patient/Caregiver Goals TO go home. OT Pain Assessment Pain When Pain Assessed During Mobility Pain Present Pain Present Unable to Respond M4 OT- IP ADL's Start: 04/25/21 12:53 Freq: Status: Active Protocol: Document 04/25/21 12:14 [facility] (Rec: 04/25/21 13:21 [facility] [id number]) OT [id number]-[id number] Comments OT Self-Feeding Comments NOt at meal time. OT ADL-Grooming Comments OT Grooming Comments Not performed. OT ADL-Oral Care Comments Oral Care Comments Not performed. OT ADL-Dressing General Eval Lower Body Dressing Ability Maximum Assistance OT ADL-Toileting General Evaluation Toileting Ability Total Assistance Areas Needing Assistance Empty Catheter or Colostomy Comments OT Toileting Comments Pt has amin in place. OT ADL-Bathing Comments OT Bathing Comments Not performed. M5 OT- IP IADL's Start: 04/25/21 12:53 Freq: Status: Active Protocol: Document 04/25/21 12:14 [facility] (Rec: 04/25/21 13:21 [facility] [id number]) OT-Instrumental Activities of Daily Living Deficits IADL Deficits Identified Deficits Home Safety Awareness Awareness of Need for Assistance at Home Decreased Awareness Ability to Problem Solve Emergency Unable to Problem Solve Situations Medication Management Medication Management Caregiver Administers Money Management Money Management Caregiver Provides Assistance Meal Preparation Meal Preparation Comments At this time pt will need assist. Candy Spreader Candy Spreader Comments At this time pt will need assist. Driving Driving Caregiver Provides Assist M6 OT- IP Functional Cognition Start: 04/25/21 12:53 Freq: Status: Active Protocol: Document 04/26/21 11:51 [facility] (Rec: 04/26/21 12:04 [facility] [id number]) Cognitive Factors Limiting Selfcare Function Cognitive Ability Level of Alertness Alert,Confusional State Patient Orientation Name Attention Span Ability Capable of Focused Attention, Capable of Sustained Attention Ability to Follow Commands Able to Follow One Step Commands with Increased Time, Able to Follow One Step Commands with Repetition Memory Description Short Term Impaired,Working Impaired Cognitive Comments Cognitive Assessment Comments Pt needing her son present for encouragement as initially not wanting to get up and [place] [facility] Pt needing tactile and vc to follow. M7 OT- IP Mobility and Balance Start: 04/25/21 12:53 Freq: Status: Active Protocol: Document 04/26/21 11:51 [facility] (Rec: 04/26/21 12:04 [facility] [id number]) OT- Bed Mobility Assessment Supine to Sit Supine to Sit Assist Maximum Assistance,Total Assistance,Head of Bed Elevated,Bedrails Scooting Scooting to Edge of Bed Maximum Assistance,1 Person Assistance OT-Transfer Assessment Sit to and From Stand Sit to and from Stand Moderate Assistance,2 Person Assistance Transfers Transfer Ability Maximum Assistance,2 Person Assistance Technique Transfer Destination Bed,Chair Transfer Technique Stand Step Pivot Devices Transfer Assistive Devices Gait Belt,Front Wheeled Walker Comments Mobility Comments Pt able to move her LLE a little more but still needing CORPORATE TAX MANAGER to assist to support her LLE. Green pad used to help get her hips to the edge of the bed. MODA X 2 to stand to FWW. James, her son in front of her for encouragement and to help keep the FWW in place. Pt having difficulty to move her right foot due to pain with left leg and needing assist from therapist to move her right foot to be able to get closer to the recliner. Pt tends reach for the recliner and needing assist to rotate and slide for right foot over so able to sit down to the recliner. At this time safer to use carrie lift for the transfer or pt able to stand with 2 person assist to FWW and another 3rd person to switch the recliner for BSC. OT- Gait Assessment Comments Gait Ability Comments Not at this time. OT- Balance Assessment Sitting Balance and Reactions Static Sitting Balance Ability Good Dynamic Sitting Balance Ability Fair Standing Balance and Reactions Static Standing Balance Ability Poor M8 OT- IP Objective Assessments Start: 04/25/21 12:53 Freq: Status: Active Protocol: Document 04/25/21 12:14 [facility] (Rec: 04/25/21 13:21 [facility] [id number]) OT Gross Range of Motion Upper Extremity Range of Motion ROM Impairments WFL for transfers OT-Muscle Tone Assessment Muscle Tone WNL Yes M9 OT- IP Assessment and Plan Start: 04/25/21 12:53 Freq: Status: Active Protocol: Document 04/26/21 11:51 [facility] (Rec: 04/26/21 12:04 [facility] [id number]) OT Summary Assessment and Plan Potential Rehabilitation Potential Fair Analytic Complexity at Evaluation Moderate Summary OT Impairments Pain,Balance,Functional Cognition,Functional Mobility, Grooming,Dressing,Toileting, Bathing,Toilet Transfers, Shower Transfers,Activity Tolerance Progress Towards Goals Slow Progress due to Pain,Slow Progress due to Medical Issues,Slow Progress due to Activity Tolerance,Slow Progress due to Cognition Assessment Summary Pt needing more assist for transfer today and appears to have more pain with LLE today. Pt needs lots of encouragement, time, and vc to participate. Pt would benefit from skilled rehab prior to home. Goals Grooming Goal Independent Dressing Goal Independent Toileting Goal Independent Bathing Goal Independent Toilet Transfer Goal Independent Shower Transfer Goal Independent Days to Meet Goals 30 Frequency of Treatment Frequency Of Treatment Once a Day Treatment Plan OT Treatment Plan ADL Training,Functional Cognition Training,Functional Mobility,Patient/Family Education,Discharge Planning Other Treatment Recommendations and Next Transfer [place] [facility] with MAXA X 2 Treatment Focus with FWW. Discharge Recommendations OT Discharge Recommendations SNF Rehab Transportation Needs at Discharge Wheelchair/Cabulance
[2021-04-26 11:48] VITALS: BP 133/78; PULSE 76; RESP 16; TEMP 36.6; O2SAT 97
--- NOTE | 2021-04-26 12:21 | PM.PN.1 ---
Subjective Subjective Interval history: She is seen in his room here today to follow-up the left hip fracture/pending and her chronic medical conditions including diabetes and hypertension. The blood pressure is generally well controlled but can be as high as 160 some/83 with heart rate of 92. The white blood count is 5.8 with a hemoglobin of 10.8. The BMP is normal with a potassium of 3.7, a creatinine of 0.54 and an A1c of 5.2. She tells me about being born in [place] and claims to be a hillbilly and we laugh about the fact that she does not know how to play the banjo or the fiddle. Exam Vital Signs (past 8 hours): - 04/26/21 06:00 04/26/21 08:00 04/26/21 11:48 Temperature 97.0 F L 98.2 F 97.8 F Pulse Rate 92 H 87 76 Respiratory Rate 16 17 16 Blood Pressure 167/83 H 139/66 133/78 Pulse Oximetry 96 97 97 Oxygen Delivery Method Nasal Cannula Oxygen Flow Rate 0 Narrative Exam Narrative: She is alert and has a wicked sense of humor. She tells me about being born in [place] and claims to be a hillbilly and we laugh about the fact that she does not know how to play the banjo or the fiddle. She has no pain complaints. Heart is regular rate and rhythm without murmur Lungs are clear to auscultation bilaterally Abdomen is soft, bowel sounds positive, nontender, no organomegaly Extremities have no ankle edema Objective Labs Result Diagrams: 04/26/21 06:05 04/26/21 06:05 Labs: Laboratory Results - last 24 hr 04/26/21 04/26/21 06:05 06:05 WBC 5.8 RBC 3.92 L Hgb 10.8 L Hct 31.8 L MCV 81.2 MCH 27.5 MCHC 33.8 RDW 15.2 H Plt Count 159 Neut % (Auto) 75.2 H Lymph % (Auto) 12.5 L Stafford % (Auto) 8.2 Eos % (Auto) 3.9 Baso % (Auto) 0.2 Neut # (Auto) 4400 Lymph # (Auto) 700 L Stafford # (Auto) 500 Eos # (Auto) 200 Baso # (Auto) 0 Sodium 137 Potassium 3.7 Chloride 102 Carbon Dioxide 30 BUN 12 Creatinine 0.54 Estimated GFR > 60.0 BUN/Creatinine Ratio 22.2 H Glucose 103 Calcium 9.1 PFSH Medical History Cancer of left breast Diabetes Hepatitis C Hip fracture History of prosthetic unicompartmental arthroplasty of both knees HTN (hypertension) Hyperlipidemia Left bundle branch block (LBBB) Non-small cell lung cancer Paroxysmal atrial fibrillation Port-A-Cath in place Right humeral fracture Surgical History History of carpal tunnel release Hx of cholecystectomy Hx of dilation and curettage Hx of tonsillectomy Hx of tubal ligation Social History household members: family Smoking Status: Former smoker alcohol intake: former Assessment & Plan Assessment & Plan narrative: This is an 80-year-old female with a past medical history of stage III lung adenocarcinoma status post chemo and radiation, breast cancer, hypertension, dementia, diabetes, and hyperlipidemia who presented after a ground level fall complaining of left hip pain. Hip imaging revealed a left femoral intertrochanteric fracture. He was admitted to medicine with orthopedics consultation for operative management of L femoral neck fracture. 1. L femoral neck fracture, pathologic, acute, present on admission - Dr. Ocampo has consulted, placed intermedullary nail on 04/23. - plan for discharge to [facility] in [facility] Wednesday, PT / OT ongoing. - pain seemingly controlled on current medications. 2. lung adenocarcinoma, right lung - no recent treatment. patient is s/p chemo and radiation per reports. CT imaging per son a few months ago showed no disease. CXR here with masslike consolidation of the RUL. - previous foot drop, recommended MRI in the past but patient did not wish to go per son. will see how she does with PT, may need imaging here if symptomatic. 3. HTN - elevated BP likely in setting of pain, continue home medications for now. 4. type 2 diabetes - a1c 5.2%, on metformin. Given her age and dementia stopped this medication. 5. HLD - continue home statin 6. paroxysmal atrial fibrillation - reported by son, not on blood thinner other than aspirin which the son states she takes only when she feels like it. Code: DNR, surrogate decision maker is patient's son BRI Ramirez. Dispo: Plan for SNF Wednesday. DVT: per orthopedics after surgery. I have utilized all available immediate resources to obtain, update, or review the patient's current medications. COVID-19 status: Negative Quality VTE Deep Vein Thrombosis/Pulmonary Embolism Present on Admission: No
--- NOTE | 2021-04-26 13:49 | PT.IPTN ---
Current Diagnoses Unspecified dementia without behavioral disturbance (04/23/21) Pathological fracture, left femur, initial encounter for fracture (04/23/21) Surgery Performed Operation Date: 04/23/21 18:30 Actual Procedures p ORIF Hip/Intramedullary Hip Screw(Left) - Kayden Ocampo MD Physical Therapy Treatment Note M2 PT-IP Current Condition Start: 04/24/21 12:49 Freq: NEEDED Status: Active Protocol: Document 04/24/21 10:10 [facility] (Rec: 04/24/21 13:01 [facility] [id number]) Physical Therapy Current Condition Current Condition Evaluation Date 04/24/21 Treatment Diagnosis GLF; L femur fx s/p nailing; difficulty in walking Onset Date 04/23/21 Weight Bearing Status Weight Bearing Status Weight Bear as Tolerated Allowed Weight Bearing Amount (enter % LLE WBAT or #) (%) M3 PT-IP Subjective Start: 04/24/21 12:49 Freq: NEEDED Status: Active Protocol: Document 04/26/21 13:37 [facility] (Rec: 04/26/21 15:09 [facility] [id number]) Subjective Physical Therapy Visit Type Type Treatment Note Visit Start Time 13:37 Visit Stop Time 13:49 Total Visit Minutes 12 Notes RN requested assisting pt back to bed. Son and WHEEL INSPECTOR Emma present during session. Number of BROADCAST CORRESPONDENT Visits 4 Physical Therapy Visit Comments Patient Comments Pt agreeable at first stating she wanted to go back to bed. Once tx stated pt wouldn't allow anyone but her son to assist her. M4 PT-IP Mobility and Gait Start: 04/24/21 12:49 Freq: NEEDED Status: Active Protocol: Document 04/26/21 13:37 [facility] (Rec: 04/26/21 15:09 [facility] [id number]) PT-Transfer Assessment Sit to and From Stand Sit to and from Stand Maximum Assistance,1 Person Assistance Equipment Transfer Assistive Device Gait Belt,Front Wheeled Walker Orthotic/Prosthetic Devices or Brace: No Transfers Transfer Destination Bed Transfer Technique Stand Pivot Transfer Ability Level of Assist Maximum Assistance,1 Person Assistance Comments Mobility Comments Pt chair positioned so pt would transfer to right. Pt then became agitated refusing to wear gait belt or allowing BROADCAST CORRESPONDENT or WHEEL INSPECTOR assist. Pt's son assisted pt to stand with FWW but pt reached up for son's arm and kept a hold on walker with other hand, BROADCAST CORRESPONDENT stepped in to assist with walker stability. Pt's son sat pt down and FWW was removed. Pt stood again with son assisting and son assisted pt Max A with stand pivot to bed then assisted pt to supine total assist. Pt left in bed with alarm on and all needs within reach. Gait Assessment Comments Gait Comments unable at this time M5 PT-IP Objective Assessments Start: 04/24/21 12:49 Freq: NEEDED Status: Active Protocol: Document 04/24/21 10:10 [facility] (Rec: 04/24/21 13:01 [facility] [id number]) Orientation Orientation/Cognition Level of Alertness Confusional State Orientation Name Safety Awareness Decreased Safety Awareness Memory Description Short Term Impaired,Food And Beverage Checker Impaired Gross Range of Motion Lower Extremity ROM Assessment Within Functional Limits Strength Lower Extremity Strength Assessment Bilaterally Impaired Comments Strength Comments RLE: 3+/5 LLE: 2+/5 Muscle Tone Muscle Tone WNL Yes M6 PT-IP Treatment Start: 04/24/21 12:49 Freq: NEEDED Status: Active Protocol: Document 04/26/21 11:15 [facility] (Rec: 04/26/21 13:32 [facility] [id number]) Physical Therapy Treatment Exercises Exercises Seated Knee Flexion/Extension M7 PT-IP Assessment and Plan Start: 04/24/21 12:49 Freq: NEEDED Status: Active Protocol: Document 04/26/21 13:37 [facility] (Rec: 04/26/21 15:09 [facility] [id number]) PT Summary Assessment and Plan Summary Impairments Pain,ROM,Strength,Balance, Coordination,Sensation,Tone, Cognition,Bed Mobility, Transfers,Gait,Activity Tolerance Progress Towards Goals Slow Progress due to Pain,Slow Progress - Other Assessment Summary Pt became agitated during tx and refused to allow staff to assist her to bed, son able to speak to pt and pt agreed to allow son James to assist her with transfer to bed then to supine. Pt requiring Max A for all mobility at this time and will require SNF rehab to improve strength for functional mobility. Goals Bed Mobility Goal Minimal Assistance Transfer Goal Minimal Assistance,Front Wheeled Walker Gait Goal Minimal Assistance,Front Wheel Walker Gait Distance 50 Other Goals improve bed mobility, transfers to SBA using FWW improve ambulation using FWW 100 ft SBA Days to Meet Goals 10 Frequency of Treatment Frequency Of Treatment Twice a Day Treatment Plan Physical Therapy Treatment Plan Bed Mobility Training,Transfer Training,Gait Training, Therapeutic Exercise,Balance Retraining,Post Op Education, Discharge Planning,Hot or Cold Pack,Neuromuscular Re-ed, Coordination Retraining,Manual Therapy Other Recommendations and Next Treatment Son James present during tx as Focus pt responds best when he is in room. Precautions Other Precautions LLE WBAT Recommendations To Nursing Amount of Assist Needed 2 Person Assist,Mechanical Lift Discharge Recommendations PT Discharge Recommendations SNF Rehab Transportation Needs at Discharge Wheelchair/Cabulance
[2021-04-26 15:40] VITALS: BP 113/62; PULSE 81; RESP 14; TEMP 36.3; O2SAT 95
[2021-04-26] MEDS: QUETIAPINE 25 MG TABLET 12.5 MG PO (20:30)
[2021-04-26] MEDS: ATORVASTATIN 20 MG TABLET 10 MG PO (20:30)
[2021-04-27] VITALS (7 sets, daily range): BP systolic 116–173; BP diastolic 55–88; PULSE 86–109; RESP 15–18; TEMP 35.9–36.8; O2SAT 94–96
[2021-04-27 06:20] LABS: Add Manual Diff / Slide Review NO; Basophils Absolute Auto 0 /uL (0-100); Basophils Percent Auto 0.3 % (0-2); Eosinophils Absolute Auto 200 /uL (0-450); Eosinophils Percent Auto 4.3 % (2-4); Hematocrit 32.2 % (36-46); Hemoglobin 10.7 g/dL (12.0-16.0); Lymphocytes Absolute Auto 900 /uL (1100-4500); Lymphocytes Percent Auto 16.5 % (25-40); Mean Corpuscular HGB Conc 33.3 % (30-36); Mean Corpuscular Volume 80.9 fL (80-100); Monocytes Absolute Auto 500 /uL (0-900); Monocytes Percent Auto 10.2 % (3-14); Neutrophils Absolute Auto 3600 /uL (1500-7000); Neutrophils Percent Auto 68.7 % (50-75); Platelet Count 187 X10^3/uL (150-400); Red Blood Cell Count 3.98 X10^6/uL (4.0-5.2); Red Cell Distribution Width 15.1 % (11.6-14.8); White Blood Cell Count 5.2 X10^3/uL (4.5-11.0)
[2021-04-27 06:22] LABS: BUN Creatinine Ratio 28.8 (6-22); Blood Urea Nitrogen 15 mg/dL (7-17); Calcium 9.2 mg/dL (8.4-10.2); Carbon Dioxide 29 mmol/L (22-32); Chloride 102 mmol/L (98-107); Estimated Glomerular Filt Rate > 60.0 mL/min (>60); Glucose 97 mg/dL (80-110); HEMOLYSIS < 15 (0-50); Potassium 3.4 mmol/L (3.4-5.1); Sodium 138 mmol/L (137-145)
[2021-04-27] MEDS: ASPIRIN EC 81 MG TABLET PO (08:30)
[2021-04-27] MEDS: DOCUSATE 100 MG CAPSULE PO (08:31)
[2021-04-27] MEDS: atenoloL 50 MG TABLET PO (08:31)
[2021-04-27] MEDS: ENOXAPARIN 40 MG/0.4 ML SYRINGE SUBCUT (08:31)
[2021-04-27] MEDS: ACETAMINOPHEN 325 MG TABLET 650 MG PO ×2 (08:31→14:44)
--- NOTE | 2021-04-27 08:43 | PC.NURSE ---
Addendum entered by Dedra Graham R.N. 04/27/21 15:25: 1525, overall pt has had a good day today. She was eating more and following commands. Overall pleasantly confused. Pt was up with PT twice today and was continent of urine/stool during the shift. Pt's son was here most of the shift today. Plan is for pt to transfer to a [facility] for rehab. Original Note: Patient takes her meds if given without asking. She likes to take then in vanilla putting. Pt is alert to sefl only and becomes anxious when there is too much stimulations, otherwise pleasantly confused.
--- NOTE | 2021-04-27 09:18 | CM.DPC ---
Addendum entered by Kristie Luna R.N. 04/27/21 12:06: Spoke to Sofia at [facility] . She gave an alternative fax number for today, since faxes will not go through. Alternate fax number for today is: [phone]. Faxed over today's P.T. note, and nursing note. Sofia indicated, they can't accept today. Asked her the reasoning, if it is bed availability, or administrative decision. She did not give a definate answer, indicated she would have to run this by her DNS tomorrow. She did not indicate this yesterday. She also indicated, concerns of buttermaker continuous churn planning, if son works, who will take care of her. Let her know that this senior production planner has had this discussion, and have given him some resources to look into for his mother while she is in rehab. Sofia stated that she will run this by director tomorrow, and will let her know. In the meantime, this senior production planner will look into other facilities. Dariela in admissions at [facility] indicated that they may be having some beds come up. Sent her over the referral. Will also proceed to look for availabilites in the [place] area. So far, [facility] not accepted, but left them a message yesterday to see if they can re-evaluate, as well as [facility], since her behaviours have improved. [facility] will not accept, and [facility] is still reviewing. Latest referral was sent to [facility]. Will complete PASSR today. Addendum entered by Kristie Luna R.N. 04/27/21 10:32: Fax has not been going through to [facility] . Have left a message with Sofia in admissions. P.T. indicated that patient did well with P.T. today. Spoke to son, James, who confirmed is financial POA. He indicated, he wished she can stay at [facility] [place]. Let him know that this is for short term, and will bring in a Senior Resources Book that he can review to look for memory care facilities. He indicated that his mother does have some finances available for this. Let him know that these are private pay facilities, not covered by Medicare. Will follow up again with Sofia at [facility]. Original Note: DCP Cont: Sent over today's nursing notes to [facility]. which states patient pleasantly confused. Will follow up with Sofia at [facility] today. P: DCP will follow up with [facility] to see if patient can discharge today. Kristie Luna, RN/Curtain Stitcher
--- NOTE | 2021-04-27 09:41 | PT.IPTN ---
Current Diagnoses Unspecified dementia without behavioral disturbance (04/23/21) Pathological fracture, left femur, initial encounter for fracture (04/23/21) Surgery Performed Operation Date: 04/23/21 18:30 Actual Procedures p ORIF Hip/Intramedullary Hip Screw(Left) - Kayden Ocampo MD Physical Therapy Treatment Note M2 PT-IP Current Condition Start: 04/24/21 12:49 Freq: NEEDED Status: Active Protocol: Document 04/24/21 10:10 AB (Rec: 04/24/21 13:01 AB [email or web address]) Physical Therapy Current Condition Current Condition Evaluation Date 04/24/21 Treatment Diagnosis GLF; L femur fx s/p nailing; difficulty in walking Onset Date 04/23/21 Weight Bearing Status Weight Bearing Status Weight Bear as Tolerated Allowed Weight Bearing Amount (enter % LLE WBAT or #) (%) M3 PT-IP Subjective Start: 04/24/21 12:49 Freq: NEEDED Status: Active Protocol: Document 04/27/21 09:41 AW (Rec: 04/27/21 10:34 AW [id number]) Subjective Physical Therapy Visit Type Type Treatment Note Visit Start Time 09:12 Visit Stop Time 09:41 Total Visit Minutes 29 Notes RN's provided assist with mobility. Number of MANAGER PROGRAMMING Visits 0 Physical Therapy Visit Comments Patient Comments Pt was pleasant and agreeable to mobilize with PT. Therapy Pain Assessment Pain When Pain Assessed During Mobility Pain Present Pain Present Allowed to Sleep Location Left Hip Scale Used not quantified Pain Management Techniques Distraction,Modification of Treatment,Re-positioning M4 PT-IP Mobility and Gait Start: 04/24/21 12:49 Freq: NEEDED Status: Active Protocol: Document 04/27/21 09:41 AW (Rec: 04/27/21 10:34 AW [id number]) PT-Bed Mobility Assessment Supine to Sit Supine to Sit Maximum Assistance,1 Person Assistance,Head of Bed Elevated Scooting Scooting to Edge of Bed Maximum Assistance PT-Transfer Assessment Sit to and From Stand Sit to and from Stand Maximum Assistance,2 Person Assistance,Use of Upper Extremities Equipment Transfer Assistive Device Gait Belt,Front Wheeled Walker Orthotic/Prosthetic Devices or Brace: No Transfers Transfer Destination Chair Transfer Technique Stand Pivot Transfer Ability Level of Assist Maximum Assistance,2 Person Assistance Comments Mobility Comments Pt was lying in bed as PT arrived. She agreed to get up to chair and needed max assist to complete supine to sit with HOB elevated. In sitting, pt used bed cane with left hand to attempt to pull forward for feet flat on floor but ultimately required max assist with use of draw pad to position EOB. Sitting balance was good. She attempted to stand from the bed, requiring max cues for positioning and technique. She rocked forward multiple times as if to use momentum to stand but resisted forward translation. She required max assist to stand but was unable to extend knees /hips. Pt wore brace on left foot for foot drop but foot remains plantar flexed. RN arrived to assist and pt stood with improved but still inadequate extension and was unable to take steps with FWW. She complained of dizziness. She sat back on the bed. BP checked and was stable. Second RN arrived and pt was assisted to stand again max A x 2 as RN moved bed and placed chair behind pt for transfer. Pt was positioned on the chair with call light and tray table in reach. Chair alarm was armed for safety. Gait Assessment Comments Gait Comments unable at this time M5 PT-IP Objective Assessments Start: 04/24/21 12:49 Freq: NEEDED Status: Active Protocol: Document 04/24/21 10:10 AB (Rec: 04/24/21 13:01 AB [id number]) Orientation Orientation/Cognition Level of Alertness Confusional State Orientation Name Safety Awareness Decreased Safety Awareness Memory Description Short Term Impaired,Senior Care Impaired Gross Range of Motion Lower Extremity ROM Assessment Within Functional Limits Strength Lower Extremity Strength Assessment Bilaterally Impaired Comments Strength Comments RLE: 3+/5 LLE: 2+/5 Muscle Tone Muscle Tone WNL Yes M6 PT-IP Treatment Start: 04/24/21 12:49 Freq: NEEDED Status: Active Protocol: Document 04/27/21 09:41 AW (Rec: 04/27/21 10:34 AW [id number]) Physical Therapy Treatment Education Education Provided Weight Bearing Status,Safety M7 PT-IP Assessment and Plan Start: 04/24/21 12:49 Freq: NEEDED Status: Active Protocol: Document 04/27/21 09:41 AW (Rec: 04/27/21 10:34 AW [id number]) PT Summary Assessment and Plan Summary Impairments Pain,ROM,Strength,Balance, Coordination,Sensation,Tone, Cognition,Bed Mobility, Transfers,Gait,Activity Tolerance Progress Towards Goals Slow Progress due to Pain,Slow Progress - Other Assessment Summary Pt is willing to work with PT but presents with anxiety regarding mobility and high fear of falling. She required two-person assist to stand and was unable to take steps to transfer. She will require SNF rehab to improve strength and mobility independence. Goals Bed Mobility Goal Minimal Assistance Transfer Goal Minimal Assistance,Front Wheeled Walker Gait Goal Minimal Assistance,Front Wheel Walker Gait Distance 50 Other Goals improve bed mobility, transfers to SBA using FWW improve ambulation using FWW 100 ft SBA Days to Meet Goals 10 Frequency of Treatment Frequency Of Treatment Twice a Day Treatment Plan Physical Therapy Treatment Plan Bed Mobility Training,Transfer Training,Gait Training, Therapeutic Exercise,Balance Retraining,Post Op Education, Discharge Planning,Hot or Cold Pack,Neuromuscular Re-ed, Coordination Retraining,Manual Therapy Precautions Other Precautions LLE WBAT Recommendations To Nursing Amount of Assist Needed 3 or More Person Assist, Mechanical Lift Discharge Recommendations PT Discharge Recommendations SNF Rehab Transportation Needs at Discharge Wheelchair/Cabulance
--- NOTE | 2021-04-27 13:39 | PT.IPTN ---
Current Diagnoses Unspecified dementia without behavioral disturbance (04/23/21) Pathological fracture, left femur, initial encounter for fracture (04/23/21) Surgery Performed Operation Date: 04/23/21 18:30 Actual Procedures p ORIF Hip/Intramedullary Hip Screw(Left) - Kayden Ocampo MD Physical Therapy Treatment Note M2 PT-IP Current Condition Start: 04/24/21 12:49 Freq: NEEDED Status: Active Protocol: Document 04/24/21 10:10 AB (Rec: 04/24/21 13:01 AB [email or web address]) Physical Therapy Current Condition Current Condition Evaluation Date 04/24/21 Treatment Diagnosis GLF; L femur fx s/p nailing; difficulty in walking Onset Date 04/23/21 Weight Bearing Status Weight Bearing Status Weight Bear as Tolerated Allowed Weight Bearing Amount (enter % LLE WBAT or #) (%) M3 PT-IP Subjective Start: 04/24/21 12:49 Freq: NEEDED Status: Active Protocol: Document 04/27/21 13:39 AW (Rec: 04/27/21 14:04 AW [id number]) Subjective Physical Therapy Visit Type Type Treatment Note Visit Start Time 13:20 Visit Stop Time 13:39 Total Visit Minutes 19 Notes Pt's son, James, provided assist with mobility. Number of ETL ARCHITECT Visits 0 Physical Therapy Visit Comments Patient Comments Pt was pleasant and agreeable to mobilize with PT. Therapy Pain Assessment Pain When Pain Assessed During Mobility Pain Present Pain Present Pain Reported Location Left Hip Scale Used not quantified Pain Management Techniques Distraction,Modification of Treatment,Re-positioning M4 PT-IP Mobility and Gait Start: 04/24/21 12:49 Freq: NEEDED Status: Active Protocol: Document 04/27/21 13:39 AW (Rec: 04/27/21 14:04 AW [id number]) PT-Bed Mobility Assessment Supine to Sit Supine to Sit Maximum Assistance,1 Person Assistance,Head of Bed Elevated Sit to Supine Sit to Supine Maximum Assistance,1 Person Assistance Scooting Scooting to Edge of Bed Maximum Assistance Scooting Up and Down in Bed Dependent PT-Transfer Assessment Sit to and From Stand Sit to and from Stand Maximum Assistance,2 Person Assistance,Use of Upper Extremities Equipment Transfer Assistive Device Gait Belt,Front Wheeled Walker Orthotic/Prosthetic Devices or Brace: No Comments Mobility Comments Pt was lying in bed as PT arrived. She stated her son had left the room but would be back soon. She agreed to sit up EOB, needing max assist for supine to sit. She used the bed cane on her left side to ineffectively pull toward EOB but needed max assist to get feet on the ground. Pt's son returned and was agreeable to assist with sit to stand. With FWW in place, pt required max assist x 2 for sit to stand with poor extension on first attempt. Pt repeated two more times with slightly improving extension on each rep. Standing tolerance, however, declined with subsequent reps. Pt had been up to commode with nursing already and expressed wish to go back to bed. Sit to supine was max assist and pt was dependent for scooting up toward HOB. Pt was left with call light and tray table in reach. Her son remained in the room. Gait Assessment Comments Gait Comments unable at this time M5 PT-IP Objective Assessments Start: 04/24/21 12:49 Freq: NEEDED Status: Active Protocol: Document 04/24/21 10:10 AB (Rec: 04/24/21 13:01 AB [email or web address]) Orientation Orientation/Cognition Level of Alertness Confusional State Orientation Name Safety Awareness Decreased Safety Awareness Memory Description Short Term Impaired,Usp Impaired Gross Range of Motion Lower Extremity ROM Assessment Within Functional Limits Strength Lower Extremity Strength Assessment Bilaterally Impaired Comments Strength Comments RLE: 3+/5 LLE: 2+/5 Muscle Tone Muscle Tone WNL Yes M6 PT-IP Treatment Start: 04/24/21 12:49 Freq: NEEDED Status: Active Protocol: Document 04/27/21 13:39 AW (Rec: 04/27/21 14:04 AW [id number]) Physical Therapy Treatment Education Education Provided Weight Bearing Status,Safety M7 PT-IP Assessment and Plan Start: 04/24/21 12:49 Freq: NEEDED Status: Active Protocol: Document 04/27/21 13:39 AW (Rec: 04/27/21 14:04 AW [id number]) PT Summary Assessment and Plan Summary Impairments Pain,ROM,Strength,Balance, Coordination,Sensation,Tone, Cognition,Bed Mobility, Transfers,Gait,Activity Tolerance Progress Towards Goals Slow Progress due to Pain,Slow Progress - Other Assessment Summary Pt is amenable to working with PT but is unable to tolerate much activity at this time - in part due to anxiety and in part due to pain. She also has premorbid left foot drop complicating her progression. She will require SNF rehab to improve her strength and mobility independence. Goals Bed Mobility Goal Minimal Assistance Transfer Goal Minimal Assistance,Front Wheeled Walker Gait Goal Minimal Assistance,Front Wheel Walker Gait Distance 50 Other Goals improve bed mobility, transfers to SBA using FWW improve ambulation using FWW 100 ft SBA Days to Meet Goals 10 Frequency of Treatment Frequency Of Treatment Twice a Day Treatment Plan Physical Therapy Treatment Plan Bed Mobility Training,Transfer Training,Gait Training, Therapeutic Exercise,Balance Retraining,Post Op Education, Discharge Planning,Hot or Cold Pack,Neuromuscular Re-ed, Coordination Retraining,Manual Therapy Other Recommendations and Next Treatment standing tolerance, transfers Focus Precautions Other Precautions LLE WBAT Recommendations To Nursing Amount of Assist Needed 3 or More Person Assist, Mechanical Lift Discharge Recommendations PT Discharge Recommendations SNF Rehab Transportation Needs at Discharge Wheelchair/Cabulance
--- NOTE | 2021-04-27 14:28 | P.PN_ITS ---
Subjective Subjective Interval history: Patient is resting comfortably following operative repair of her lift hip fractures Exam Vital Signs (past 8 hours): - 04/27/21 08:00 04/27/21 11:13 Temperature 97.6 F 97.9 F Pulse Rate 86 109 H Respiratory Rate 16 17 Blood Pressure 125/79 116/55 L Pulse Oximetry 95 95 Oxygen Delivery Method Nasal Cannula Oxygen Flow Rate 0 Narrative Exam Narrative: pleasant female in No acute distress Const Other: sitting in bed, smiling does not complain of pain Resp Other: Lungs: clear to auscultation Cardio Other: RRR nl Sl S2 2/6 SUMIT GI Other: Abd: soft/non tender non distended Extrem Other: Left hip with bruising, dressing dry Objective Labs Result Diagrams: 04/27/21 05:55 04/27/21 05:55 Labs: Laboratory Results - last 24 hr 04/27/21 04/27/21 05:55 05:55 WBC 5.2 RBC 3.98 L Hgb 10.7 L Hct 32.2 L MCV 80.9 MCH 27.0 MCHC 33.3 RDW 15.1 H Plt Count 187 Neut % (Auto) 68.7 Lymph % (Auto) 16.5 L Wells % (Auto) 10.2 Eos % (Auto) 4.3 H Baso % (Auto) 0.3 Neut # (Auto) 3600 Lymph # (Auto) 900 L Wells # (Auto) 500 Eos # (Auto) 200 Baso # (Auto) 0 Sodium 138 Potassium 3.4 Chloride 102 Carbon Dioxide 29 BUN 15 Creatinine 0.52 Estimated GFR > 60.0 BUN/Creatinine Ratio 28.8 H Glucose 97 Calcium 9.2 PFSH Medical History Cancer of left breast Diabetes Hepatitis C Hip fracture History of prosthetic unicompartmental arthroplasty of both knees HTN (hypertension) Hyperlipidemia Left bundle branch block (LBBB) Non-small cell lung cancer Paroxysmal atrial fibrillation Port-A-Cath in place Right humeral fracture Surgical History History of carpal tunnel release Hx of cholecystectomy Hx of dilation and curettage Hx of tonsillectomy Hx of tubal ligation Social History household members: family Smoking Status: Former smoker alcohol intake: former Assessment & Plan Assessment & Plan narrative: Assessment & Plan Assessment & Plan narrative: This is an 80-year-old female with a past medical history of stage III lung adenocarcinoma status post chemo and radiation, breast cancer, hypertension, dementia, diabetes, and hyperlipidemia who presented after a ground level fall complaining of left hip pain. Hip imaging revealed a left femoral intertrochant rose fracture. He was admitted to medicine with orthopedics consultation for operative management of L femoral neck fracture. 1. L femoral neck fracture, pathologic, acute, present on admission - Dr. Ocampo has consulted, placed intermedullary nail on 04/23. - plan for discharge to [facility] in [facility] Wednesday, PT / OT ongoing. - pain seemingly controlled on current medications. 2. lung adenocarcinoma, right lung - no recent treatment. patient is s/p chemo and radiation per reports. CT imaging per son a few months ago showed no disease. CXR here with masslike consolidation of the RUL. - previous foot drop, recommended MRI in the past but patient did not wish to go per son. will see how she does with PT, may need imaging here if symptomatic. 3. HTN - elevated BP likely in setting of pain, continue home medications for now. 4. type 2 diabetes - a1c 5.2%, on metformin. Given her age and dementia stopped this medication. 5. HLD - continue home statin 6. paroxysmal atrial fibrillation - reported by son, not on blood thinner other than aspirin which the son states she takes only when she feels like it. I have utilized all means, resources, tools available to review her current m edications. Quality VTE Deep Vein Thrombosis/Pulmonary Embolism Present on Admission: No
[2021-04-27] MEDS: ATORVASTATIN 20 MG TABLET 10 MG PO (20:20)
[2021-04-27] MEDS: QUETIAPINE 25 MG TABLET 12.5 MG PO (20:21)
[2021-04-28 00:07] VITALS: PULSE 85; RESP 18; O2SAT 97
[2021-04-28] MEDS: OXYCODONE IR 5 MG TABLET PO (01:05)
--- NOTE | 2021-04-28 07:46 | PM.PNPO.1 ---
Subjective Subjective Date Patient Seen: 04/28/21 Time Patient Seen: 07:47 Interval history: Patient appears confused but is without complaints at the moment. Denies pain. Exam Vital Signs (past 8 hours): - 04/28/21 00:07 Pulse Rate 85 Respiratory Rate 18 Pulse Oximetry 97 Oxygen Delivery Method Nasal Cannula Oxygen Flow Rate 0 Narrative Exam Narrative: 80-year-old female postop day 5 status post left hip short cephalomedullary regina. Patient is resting comfortably in bed, is in no acute distress. Skin is warm dry, and the skin surrounding the incision site is free of erythema, warmth, induration, or discharge. Left hip is externally rotated at rest. Good sensation appreciated throughout the bilateral lower extremities. Gross motor function intact throughout the bilateral lower extremities. DP pulses palpated bilaterally and are even. No signs of DVT appreciated. Const General: cooperative, healthy appearing and comfortable Resp Effort & Inspection: normal respiratory effort and able to speak in complete sentences Skin General: no rashes or lesions noted Objective Labs Result Diagrams: 04/27/21 05:55 04/27/21 05:55 [facility] Medical History Cancer of left breast Diabetes Hepatitis C Hip fracture History of prosthetic unicompartmental arthroplasty of both knees HTN (hypertension) Hyperlipidemia Left bundle branch block (LBBB) Non-small cell lung cancer Paroxysmal atrial fibrillation Port-A-Cath in place Right humeral fracture Surgical History History of carpal tunnel release Hx of cholecystectomy Hx of dilation and curettage Hx of tonsillectomy Hx of tubal ligation Social History household members: family Smoking Status: Former smoker alcohol intake: former Assessment & Plan Post-op Postoperative Procedures: Procedures Operation Date: 04/23/21 18:30 Actual Procedure Side Surgeon p ORIF Hip/Intramedullary Hip Screw Left Kayden Ocampo MD Postoperative day: 5 Postoperative status: doing well Postoperative plan: ambulate Postoperative plan narrative: Patient is to continue working on ambulation with the assistance of a front wheeled walker with physical therapy. Patient will continue Lovenox for 4 weeks following surgery for DVT prophylaxis. Current pain management regimen is to be continued as it is adequately controlled the patient's pain level. Follow-up in [facility]opedic [facility] 2 weeks following surgery. Plan for discharge when patient is cleared by Medicine. Quality VTE Deep Vein Thrombosis/Pulmonary Embolism Present on Admission: No
[2021-04-28 08:00] VITALS: BP 142/69; PULSE 91; RESP 18; TEMP 36.3; O2SAT 97
[2021-04-28] MEDS: atenoloL 50 MG TABLET PO (08:26)
[2021-04-28] MEDS: ACETAMINOPHEN 325 MG TABLET 650 MG PO ×2 (08:26→14:54)
[2021-04-28] MEDS: ASPIRIN EC 81 MG TABLET PO (08:26)
[2021-04-28] MEDS: ENOXAPARIN 40 MG/0.4 ML SYRINGE SUBCUT (08:26)
[2021-04-28] MEDS: DOCUSATE 100 MG CAPSULE PO (08:26)
--- NOTE | 2021-04-28 09:04 | CM.DPNOTE ---
Faxed referral packet per Sybil to [facility] and received fax conf. Nasra Birch CM Asst.
--- NOTE | 2021-04-28 10:45 | CM.DPC ---
Addendum entered by SWETA Fletcher 04/28/21 15:51: ADD: Return call from [facility] stating that they decline accepting the pt. BF Addendum entered by Sybil Zaman, REFLEXOLOGIST 04/28/21 15:22: ADD: [facility] and do not anticipate any openings any time soon. [facility] completed bedside assessment and a little cautious due to pt's new Seroquel and one time dose of Haldol earlier in pt's stay but will discuss with DNS and let us know. Asked for answer by 1600 if possible. [facility] confirms they can accept pt but no beds until likely closer to end of the week. [facility] in [facility] confirms they can accept and can admit pt tomorrow 04/29/21. SW called pt's son/SOREN Ramirez and updated on above. He is hopeful that pt can go to [facility] as closer to home but agreeable with [facility] if this is the only option. SW discussed that PT and staff will need to help determine best mode of transport as [facility] will not be providing transport. SW discussed with PT requesting eval of pt this afternoon to determine if she could safely transport via son's POV or if cabulance needed. [facility] updated and will need MD signature due to Seroquel added here at the hospital and MD will need to sign for exempted hospital discharge. BF Addendum entered by Sybil Zaman, REFLEXOLOGIST 04/28/21 12:28: ADD: Return call from [facility] inquiring about pt's vaccination status and SW updated her that we have a copy of her COVID vaccination card and [facility] will call back to confirm if they can accept. JABIER called [facility] and spoke to admissions who confirms they received referral and still reviewing and will call back shortly. SW still waiting for call back from [facility]. SW still waiting for [facility] bedside assessment of pt today. BF Original Note: DCP Cont: Per MD, pt remains medically stable to d/c to SNF today. JABIER called [facility] first thing this morning and left msg for admissions inquiring if they had reviewed with their DNS yet towards determining if they can accept. JABIER called [facility] admissions and left msg if they had reviewed yet for acceptance for today. [facility] confirmed they will still plan to assess pt bedside today around 1200 to determine if they can accept but do not have an opening to accept today but likely tomorrow. SW also called [facility] SNFs: [facility]: left msg [facility]: left msg [facility]: left msg [facility]: willing to review, about to have morning meeting to determine their bed availability and [facility] faxed referral to fax [phone]. No return calls by 1045 and SW left msgs for both [facility] and [facility] again. Plan: SW to follow closely for accepting SNF prior to return home with son when safe. SWETA Fletcher
--- NOTE | 2021-04-28 11:15 | PT.IPTN ---
Current Diagnoses Unspecified dementia without behavioral disturbance (04/23/21) Pathological fracture, left femur, initial encounter for fracture (04/23/21) Surgery Performed Operation Date: 04/23/21 18:30 Actual Procedures p ORIF Hip/Intramedullary Hip Screw(Left) - Kayden Ocampo MD Physical Therapy Treatment Note M2 PT-IP Current Condition Start: 04/24/21 12:49 Freq: NEEDED Status: Active Protocol: Document 04/24/21 10:10 AB (Rec: 04/24/21 13:01 AB [id number]) Physical Therapy Current Condition Current Condition Evaluation Date 04/24/21 Treatment Diagnosis GLF; L femur fx s/p nailing; difficulty in walking Onset Date 04/23/21 Weight Bearing Status Weight Bearing Status Weight Bear as Tolerated Allowed Weight Bearing Amount (enter % LLE WBAT or #) (%) M3 PT-IP Subjective Start: 04/24/21 12:49 Freq: NEEDED Status: Active Protocol: Document 04/28/21 11:15 DLM (Rec: 04/28/21 11:32 DLM [id number]) Subjective Physical Therapy Visit Type Visit Start Time 10:30 Visit Stop Time 11:15 Total Visit Minutes 45 Notes co-treat with OT for pt safety Number of WEIGHT CALLER Visits 0 Physical Therapy Visit Comments Patient Comments she does not want to go anywhere Patient Goals unable to state Therapy Pain Assessment Pain When Pain Assessed During Mobility Pain Present Pain Present Pain Reported Location Left Hip Scale Used she can not describe Pain Behaviors Wincing Pain Management Techniques Timing of Activity with Medications M4 PT-IP Mobility and Gait Start: 04/24/21 12:49 Freq: NEEDED Status: Active Protocol: Document 04/28/21 11:15 DLM (Rec: 04/28/21 11:32 DL [id number]) PT-Bed Mobility Assessment Supine to Sit Supine to Sit Moderate Assistance Scooting Scooting Up and Down in Bed Maximum Assistance PT-Transfer Assessment Comments Mobility Comments Pt sat up edge of bed, she refused to attempt standing or transfers. She gets very agitated when encouraged to do more activity. Pt fidgeting with hands and holding items such as her glasses and then her gown. Once sitting edge of bed then pt refused to go back to supine. Gait Assessment Comments Gait Comments she refused to attempt transfers or gait PT-Balance Assessment Sitting Balance and Reactions Static Sitting Balance Ability Good Dynamic Sitting Balance Ability Good Functional Assessments Other Functional Tests Performed she demonstrates good sitting balance sitting edge of bed with functional reaching. 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 Pt wearing her left ankle brace. Her shoes are in her room but she refused to allow them to be put on. M7 PT-IP Assessment and Plan Start: 04/24/21 12:49 Freq: NEEDED Status: Active Protocol: Document 04/28/21 11:15 DLM (Rec: 04/28/21 11:32 DLM [id number]) PT Summary Assessment and Plan Summary Impairments Pain,ROM,Strength,Balance, Cognition,Bed Mobility, Transfers,Gait,Activity Tolerance Progress Towards Goals Slow Progress due to Activity Tolerance Assessment Summary Arlen is alert and resting in bed. She is confused and unable to re-orient her. She is pleasant and talkative at rest. She is very resistant to mobility and become agitated easily when encouraged to move . She tolerated sitting on edge of bed well. Pt improved her participation with supine to sit when head of bed flattened with pt using trunk muscular to lift herself to seated position. I suspect she is physically capable of moving more than she demonstrated during this visit . She perseverates a lot and likes to fidget. Goals Bed Mobility Goal Minimal Assistance Transfer Goal Minimal Assistance,Front Wheeled Walker Gait Goal Minimal Assistance,Front Wheel Walker Gait Distance 50 Other Goals improve bed mobility, transfers to SBA using FWW improve ambulation using FWW 100 ft SBA Days to Meet Goals 10 Frequency of Treatment Frequency Of Treatment Twice a Day Treatment Plan Physical Therapy Treatment Plan Bed Mobility Training,Transfer Training,Gait Training, Therapeutic Exercise,Balance Retraining,Post Op Education, Discharge Planning,Hot or Cold Pack,Neuromuscular Re-ed, Coordination Retraining,Manual Therapy Other Recommendations and Next Treatment standing tolerance, transfers Focus Recommendations To Nursing Amount of Assist Needed 2 Person Assist,Mechanical Lift Discharge Recommendations PT Discharge Recommendations SNF Rehab Transportation Needs at Discharge Wheelchair/Cabulance
--- NOTE | 2021-04-28 11:20 | OT.IP.TRT ---
Current Diagnoses Unspecified dementia without behavioral disturbance (04/23/21) Pathological fracture, left femur, initial encounter for fracture (04/23/21) Surgery Performed Operation Date: 04/23/21 18:30 Actual Procedures p ORIF Hip/Intramedullary Hip Screw(Left) - Kayden Ocampo MD Occupational Therapy Treatment Note M2 OT-IP Current Condition Start: 04/25/21 12:53 Freq: Status: Active Protocol: Document 04/25/21 12:14 [facility] (Rec: 04/25/21 13:21 [facility] [id number]) Occupational Therapy Current Condition Current Condition Evaluation Date 04/25/21 Treatment Diagnosis GLF, s/p Left femor fx/ s/p nailing, decreased mobility Diagnosis Onset Date 04/23/21 Weight Bearing Status Weight Bearing Status Weight Bear as Tolerated M3 OT- IP Subjective and Pain Start: 04/25/21 12:53 Freq: Status: Active Protocol: Document 04/28/21 11:29 [facility] (Rec: 04/28/21 11:46 [facility] [id number]) OT- Subjective Occupational Therapy Visit Type Type Treatment Note Visit Start Time 10:32 Visit Stop Time 11:20 Total Visit Minutes 48 Occupational Therapy Visit Comments Patient Comments Pt in bed and PT and OT present to try to get pt up from the bed. Patient/Caregiver Goals TO get out of the hospital. OT Pain Assessment Pain When Pain Assessed During Mobility Pain Present Pain Present Pain Reported Location Left Hip Pain Behaviors Facial Grimacing M4 OT- IP ADL's Start: 04/25/21 12:53 Freq: Status: Active Protocol: Document 04/28/21 11:29 [facility] (Rec: 04/28/21 11:46 [facility] [id number]) OT [id number] Comments OT Self-Feeding Comments NOt at meal time. OT ADL-Grooming General Evaluation Grooming Ability Standby Assistance Areas Needing Assistance Retrieving/Set-up of Grooming Items Comments OT Grooming Comments ABle to brush her hair after brush given to her. OT ADL-Dressing Comments OT Dressing Comments Pt able to pull out right sock , as not wanting to have socks on at this time. OT ADL-Toileting Comments OT Toileting Comments Pt states does not have to use the toilet. M5 OT- IP IADL's Start: 04/25/21 12:53 Freq: Status: Active Protocol: Document 04/25/21 12:14 [facility] (Rec: 04/25/21 13:21 [facility] [id number]) OT-Instrumental Activities of Daily Living Deficits IADL Deficits Identified Deficits Home Safety Awareness Awareness of Need for Assistance at Home Decreased Awareness Ability to Problem Solve Emergency Unable to Problem Solve Situations Medication Management Medication Management Caregiver Administers Money Management Money Management Caregiver Provides Assistance Meal Preparation Meal Preparation Comments At this time pt will need assist. Assembler Arranger Assembler Arranger Comments At this time pt will need assist. Driving Driving Caregiver Provides Assist M6 OT- IP Functional Cognition Start: 04/25/21 12:53 Freq: Status: Active Protocol: Document 04/28/21 11:29 [facility] (Rec: 04/28/21 11:46 [facility] [id number]) Cognitive Factors Limiting Selfcare Function Cognitive Ability Level of Alertness Alert,Confusional State Patient Orientation Name Attention Span Ability Capable of Focused Attention, Unable to Focus Ability to Follow Commands Able to Follow One Step Commands with Increased Time, Able to Follow One Step Commands with Repetition Memory Description Short Term Impaired,Working Impaired Safety Awareness Underestimates Need for Assistance Problem Solving Ability Unable to Identify Errors, Needs Assist to Identify Solutions Cognitive Comments Cognitive Assessment Comments Pt mainly just orientated to name and needing reminders to let her know that she is here in the hospital from a fall and left femur fx. Pt at this time fixating on not getting out of bed as she does not want to get into trouble and just waiting to get picked up so that she can leave. Reassured pt that she will not get in trouble, and that therapy was in to help her to move. Pt grasping her glasses and gown in her hands during the session. M7 OT- IP Mobility and Balance Start: 04/25/21 12:53 Freq: Status: Active Protocol: Document 04/28/21 11:29 [facility] (Rec: 04/28/21 11:46 [facility] [id number]) OT- Bed Mobility Assessment Supine to Sit Supine to Sit Assist Moderate Assistance,1 Person Assistance OT-Transfer Assessment Comments Mobility Comments Having the pt get to the edge of the bed with HOB up . Pt needing assist to get her legs to the edge of the bed and then HOB lowered and pt able to get her trunk upright. Afterwards pt was content to just sit at the edge of the bed and not wanting to lie down or get to the recliner. OT able to let nursing know of pt's status and PT stayed to monitor pt just outside of the room to see whether she would just lie down or need assist. OT- Gait Assessment Comments Gait Ability Comments Not at this time. OT- Balance Assessment Sitting Balance and Reactions Static Sitting Balance Ability Good Dynamic Sitting Balance Ability Fair M8 OT- IP Objective Assessments Start: 04/25/21 12:53 Freq: Status: Active Protocol: Document 04/25/21 12:14 [facility] (Rec: 04/25/21 13:21 [facility] [id number]) OT Gross Range of Motion Upper Extremity Range of Motion ROM Impairments WFL for transfers OT-Muscle Tone Assessment Muscle Tone WNL Yes M9 OT- IP Assessment and Plan Start: 04/25/21 12:53 Freq: Status: Active Protocol: Document 04/28/21 11:29 [facility] (Rec: 04/28/21 11:46 [facility] [id number]) OT Summary Assessment and Plan Potential Rehabilitation Potential Fair Analytic Complexity at Evaluation Moderate Summary OT Impairments Pain,Balance,Functional Cognition,Functional Mobility, Grooming,Dressing,Toileting, Bathing,Toilet Transfers, Shower Transfers,Activity Tolerance Progress Towards Goals Slow Progress due to Pain,Slow Progress due to Medical Issues,Slow Progress due to Cognition Assessment Summary Pt not wanting to get out of the bed for OT session. Pt tends to do better when her son is there, however pt's son not present. Pt at this time not safe to go home unless her son is able to care for her 22/03. Pt's son works. Therefore pt would benefit from skilled rehab. Goals Grooming Goal Independent Dressing Goal Independent Toileting Goal Independent Bathing Goal Independent Toilet Transfer Goal Independent Shower Transfer Goal Independent Days to Meet Goals 30 Frequency of Treatment Frequency Of Treatment Once a Day Treatment Plan OT Treatment Plan ADL Training,Functional Cognition Training,Functional Mobility,Patient/Family Education,Discharge Planning Other Treatment Recommendations and Next Transfer to [facility] with MAXA X 2 Treatment Focus with FWW. Discharge Recommendations OT Discharge Recommendations SNF Rehab Transportation Needs at Discharge Wheelchair/Cabulance
[2021-04-28 12:19] VITALS: BP 127/65; PULSE 82; RESP 18; TEMP 36.4; O2SAT 96
--- NOTE | 2021-04-28 14:55 | PC.NURSE ---
Pt has not voided this shift. Bladder scan showing 290 cc in bladder. Encouraged to drink water and attempt BSC with PT.n
--- NOTE | 2021-04-28 15:58 | PT.IPTN ---
Current Diagnoses Unspecified dementia without behavioral disturbance (04/23/21) Pathological fracture, left femur, initial encounter for fracture (04/23/21) Surgery Performed Operation Date: 04/23/21 18:30 Actual Procedures p ORIF Hip/Intramedullary Hip Screw(Left) - Kayden Ocampo MD Physical Therapy Treatment Note M2 PT-IP Current Condition Start: 04/24/21 12:49 Freq: NEEDED Status: Active Protocol: Document 04/24/21 10:10 AB (Rec: 04/24/21 13:01 AB [id number]) Physical Therapy Current Condition Current Condition Evaluation Date 04/24/21 Treatment Diagnosis GLF; L femur fx s/p nailing; difficulty in walking Onset Date 04/23/21 Weight Bearing Status Weight Bearing Status Weight Bear as Tolerated Allowed Weight Bearing Amount (enter % LLE WBAT or #) (%) M3 PT-IP Subjective Start: 04/24/21 12:49 Freq: NEEDED Status: Active Protocol: Document 04/28/21 14:53 SP (Rec: 04/28/21 16:59 SP [id number]) Subjective Physical Therapy Visit Type Type Treatment Note Visit Start Time 14:53 Visit Stop Time 15:28 Total Visit Minutes 35 Notes Son in room, assisted with physical mobility when needed BSC to chair. CHAIN SAW DRIVER assisted with transfer bed > BSC before needed to go to another room, stated will come back. Number of DYNAMO TENDER Visits 1 Physical Therapy Visit Comments Patient Comments Pt agreeable to working with therapy. Patient Goals unable to state Therapy Pain Assessment Pain When Pain Assessed During Mobility Pain Present Pain Present Pain Reported Location Left Hip Scale Used she can not describe Pain Behaviors Holding Area,Wincing Pain Management Techniques Modification of Treatment,Re- positioning,Timing of Activity with Medications M4 PT-IP Mobility and Gait Start: 04/24/21 12:49 Freq: NEEDED Status: Active Protocol: Document 04/28/21 14:53 SP (Rec: 04/28/21 16:59 SP [id number]) PT-Bed Mobility Assessment Supine to Sit Supine to Sit Moderate Assistance Scooting Scooting to Edge of Bed Maximum Assistance PT-Transfer Assessment Sit to and From Stand Sit to and from Stand Maximum Assistance,2 Person Assistance,Use of Upper Extremities Equipment Transfer Assistive Device Gait Belt,Front Wheeled Walker Orthotic/Prosthetic Devices or Brace: No Transfers Transfer Destination Chair,Bedside Commode Transfer Technique Squat Pivot Transfer Ability Level of Assist Maximum Assistance,2 Person Assistance,Use of Upper Extremities Comments Mobility Comments Pt confused in conversation, responses not always appropriate to task at hand. Pt best with 1 step cues. Elevated supine>sit Mod A x1, scoot to EOB Max A x1. Sit at EOB CGA supported with BUE. Sit>stand Max A x2 usign FWW x2 attempts, unable to WB through LLE and pivot. Pt completed squat pivot transfer bed to L Max A x2 (CHAIN SAW DRIVER and DYNAMO TENDER). Pt able to sit on BSC CG - close SBA for safety, she tends to wt shift alot on BSC using BUE on arms and BLE on floor. Pt unsuccessful voiding . Pt attempted self pericare but unable to reach front and lean forward behind. DYNAMO TENDER assisted pericare in sitting. Sit>stand, Max A x2, son assisted from front and DYNAMO TENDER assisted from L side using gait belt, completed modified standing while BUE WB on FWW, unable to redirect to BSC arm rests, DYNAMO TENDER complete brief mgt while in standing then returned to closed BSC. Squat pivot transfer BSC to chair to L Max A x2, LLE positioned in front due to lack of self repositioning and KASHIA assisted pt reach across other chair arm. Pt unable to scoot back in chair. DYNAMO TENDER reclined pt in chair fully, DYNAMO TENDER and son scooted pt up in chair via transfer pad Max A x2. DYNAMO TENDER provided wash cloth to self clean off her legs, under arms and under breasts with support provided by DYNAMO TENDER. Boy I smell something. DYNAMO TENDER educated moisture under breasts. DYNAMO TENDER stated when able to get around better can probably get in the shower but CNAs can assist with sponge bath when back in bed. Pt had chair alarm donned, call light , able to point to button to call for help placedin her lap . Provided warm blankets and all needs in reach. Gait Assessment Comments Gait Comments Pt difficulty motor planning standing mobility. Completed squat pivot transfers only. PT-Balance Assessment Sitting Balance and Reactions Static Sitting Balance Ability Good Dynamic Sitting Balance Ability Fair Functional Assessments Other Functional Tests Performed she demonstrates good sitting balance seated in chair rubbing her arms/ legs unsupported away from back of chair. 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 Pt wearing her left ankle brace. Her shoes are in her room but she refused to allow them to be put on. M7 PT-IP Assessment and Plan Start: 04/24/21 12:49 Freq: NEEDED Status: Active Protocol: Document 04/28/21 14:53 SP (Rec: 04/28/21 16:59 SP [id number]) PT Summary Assessment and Plan Potential Rehabilitation Potential Fair Status of Condition at Evaluation Evolving Summary Impairments Pain,ROM,Strength,Balance, Cognition,Bed Mobility, Transfers,Gait,Activity Tolerance Progress Towards Goals Slow Progress due to Pain,Slow Progress due to Activity Tolerance,Slow Progress - Other Assessment Summary Pt requires Max A x1 for supine>sitting wtih max singel step cues for motor planning . Max A sit>stand KASHIA for proper hand placement bed to FWW. Unable complete SPT, Max A x2 squat pivot transfer. She tolerated sitting on edge of bed well. Pt is unable to complete/tolerate WB through LLE. Pt will need SNF for continued rehab strengthening for functional mobility. Will continue to assess progress. 3 person or mechanical lift with nursing for transfers. Goals Bed Mobility Goal Minimal Assistance Transfer Goal Minimal Assistance,Front Wheeled Walker Gait Goal Minimal Assistance,Front Wheel Walker Gait Distance 50 Other Goals improve bed mobility, transfers to SBA using FWW improve ambulation using FWW 100 ft SBA Days to Meet Goals 10 Frequency of Treatment Frequency Of Treatment Twice a Day Treatment Plan Physical Therapy Treatment Plan Bed Mobility Training,Transfer Training,Gait Training, Therapeutic Exercise,Balance Retraining,Post Op Education, Discharge Planning,Hot or Cold Pack,Neuromuscular Re-ed, Coordination Retraining,Manual Therapy Other Recommendations and Next Treatment standing tolerance, transfers Focus Precautions Other Precautions LLE WBAT Recommendations To Nursing Amount of Assist Needed 3 or More Person Assist, Mechanical Lift Discharge Recommendations PT Discharge Recommendations SNF Rehab Other Discharge Recommendations recommend side sitter if in w/ c for safety, otherwise stretcher. Transportation Needs at Discharge Wheelchair/Cabulance,Stretcher /Ambulance
--- NOTE | 2021-04-28 18:38 | PC.NURSE ---
Evening shit note. pt AO to self, pleasantly confused and calm. Denies pain. Son in room at start of shift assisting with answering questions. No IV access (provider aware). Aquacel to left hip mild shadowing, dry and intact. Tegaderm covered gauze mild shadowing, dry and intact. Bruising to left lip area. Erythema to pannus and upper breast area. Incontinent per report however able to communicate need to urinate to son early in shift and voided 400+ in BSC with small BM. pt had difficult time understanding the transfer to the BS but after some time and repeating the destination, pt was able to 2PA to BSC.
--- NOTE | 2021-04-28 19:30 | P.PN_ITS ---
Subjective Subjective Interval history: Patient is s/p left hip cephalomedullary nail placement. Patient has no complaints and is awaiting placement Exam Vital Signs (past 8 hours): - 04/28/21 12:19 Temperature 97.6 F Pulse Rate 82 Respiratory Rate 18 Blood Pressure 127/65 Pulse Oximetry 96 Oxygen Delivery Method Nasal Cannula Oxygen Flow Rate 0 Narrative Exam Narrative: pleasant female in no acute distress Resp Other: Lungs: clear to auscultation Cardio Other: RRR nl Sl S2 2/6 [facility] GI Other: Abd: soft/ non tender Extrem Other: left hip dressing dry Objective Labs Result Diagrams: 04/27/21 05:55 04/27/21 05:55 [facility] Medical History Cancer of left breast Diabetes Hepatitis C Hip fracture History of prosthetic unicompartmental arthroplasty of both knees HTN (hypertension) Hyperlipidemia Left bundle branch block (LBBB) Non-small cell lung cancer Paroxysmal atrial fibrillation Port-A-Cath in place Right humeral fracture Surgical History History of carpal tunnel release Hx of cholecystectomy Hx of dilation and curettage Hx of tonsillectomy Hx of tubal ligation Social History household members: family Smoking Status: Former smoker alcohol intake: former Assessment & Plan Assessment & Plan narrative: L femoral neck fracture, pathologic, acute, present on admission - Dr. Ocampo has consulted, placed intermedullary nail on 04/23. - plan for discharge to SNF when bed available, probably tomorrow - pain seemingly controlled on current medications. 2. lung adenocarcinoma, right lung - no recent treatment. patient is s/p chemo and radiation per reports. CT imaging per son a few months ago showed no disease. CXR here with masslike consolidation of the RUL. - previous foot drop, recommended MRI in the past but patient did not wish to go per son. will see how she does with PT, may need imaging here if symptomatic. 3. HTN - elevated BP likely in setting of pain, continue home medications for now. 4. type 2 diabetes - a1c 5.2%, on metformin. Given her age and dementia stopped this medication. 5. HLD - continue home statin 6. paroxysmal atrial fibrillation - reported by son, not on blood thinner other than aspirin which the son states she takes only when she feels like it. Quality VTE Deep Vein Thrombosis/Pulmonary Embolism Present on Admission: No
[2021-04-28] MEDS: QUETIAPINE 25 MG TABLET 12.5 MG PO (20:47)
[2021-04-29 00:45] VITALS: BP 108/50; PULSE 89; RESP 22; TEMP 36.4; O2SAT 94
--- NOTE | 2021-04-29 09:28 | CM.DPC ---
DCP: continued: picked up a vm from [facility]inesh Higginbotham CC: [phone] who requested confirmation that pt was planning to come to them and if that would be today. SWETA Hodges is taking this case today and will update her when she gets off the phone. Did call [facility] back as Dr. Yanez had been in this office earlier today and had confirmed that pt was ready for a d/c today and the plan was for [facility]. Provided her with Tracie's direct line.
--- NOTE | 2021-04-29 10:04 | PC.NURSE ---
Addendum entered by Lorena Moon R.N. 04/29/21 14:39: Patient has not voided yet this shift, left a note for to see what she would like us to do. She is in bed and resting, starting to become a bit agitated but is still compliant. She is hard on herself and makes comments that dont make sense. She is cooperative with care. Addendum entered by Lorena Moon R.N. 04/29/21 10:16: Patient is alert and oriented x1. She is familiar with faces but does not know the time, date, or year. Original Note: Patient is sleeping at this time, she did not sleep well. Will give her her po medication and lovenox injection when she wakes up. Her dressing has some drainage on it and she has purple bruising all around the incision site. Patients son called for an update. She is resting comfortably.
--- NOTE | 2021-04-29 10:41 | P.PN_ITS ---
Subjective Subjective Date Patient Seen: 04/29/21 Time Patient Seen: 10:42 Interval history: Denies pain this morning Exam Vital Signs (past 8 hours): Oxygen Delivery Method Nasal Cannula Oxygen Flow Rate 0 Narrative Exam Narrative: 80-year-old female resting comfortably in bed in no apparent distress. Dressing is Clean, dry, intact.. Neurovascular status is grossly intact bilateral lower extremities. Objective Labs Result Diagrams: 04/27/21 05:55 04/27/21 05:55 [facility] Medical History Cancer of left breast Diabetes Hepatitis C Hip fracture History of prosthetic unicompartmental arthroplasty of both knees HTN (hypertension) Hyperlipidemia Left bundle branch block (LBBB) Non-small cell lung cancer Paroxysmal atrial fibrillation Port-A-Cath in place Right humeral fracture Surgical History History of carpal tunnel release Hx of cholecystectomy Hx of dilation and curettage Hx of tonsillectomy Hx of tubal ligation Social History household members: family Smoking Status: Former smoker alcohol intake: former Assessment & Plan Post-op Postoperative Procedures: Procedures Operation Date: 04/23/21 18:30 Actual Procedure Side Surgeon p ORIF Hip/Intramedullary Hip Screw Left Kayden Ocampo MD Postoperative day: 6 Postoperative status narrative: Stable Postoperative plan narrative: Short cephalomedullary nail Weight-bearing as tolerated left lower extremity. Lovenox for DVT prophylaxis. Mobilize with physical therapy Discharge to nursing home facility when medically stable per hospitalist. Follow-up with [facility] in 2 weeks. Quality VTE Deep Vein Thrombosis/Pulmonary Embolism Present on Admission: No
[2021-04-29 11:44] VITALS: O2SAT 94
[2021-04-29 12:00] VITALS: BP 143/67; PULSE 85; RESP 16; TEMP 36.4; O2SAT 98
[2021-04-29] MEDS: ACETAMINOPHEN 325 MG TABLET 650 MG PO ×2 (12:25→20:33)
[2021-04-29] MEDS: atenoloL 50 MG TABLET PO ×2 (12:25→20:34)
[2021-04-29] MEDS: DOCUSATE 100 MG CAPSULE PO ×2 (12:25→20:34)
[2021-04-29] MEDS: ASPIRIN EC 81 MG TABLET PO (12:25)
[2021-04-29] MEDS: ENOXAPARIN 40 MG/0.4 ML SYRINGE SUBCUT (12:26)
--- NOTE | 2021-04-29 14:00 | PT-IP ANOTE ---
Addendum entered and electronically signed by Gillian Banks PTA 04/29/21 14:10: Therapy will return tomorrow. Original Note: ROPEMAN/ OT arrived for cotreatment pt supine sleeping in bed. MANAGER CHINESE reported pt just returned to bed from using BSC. Pt confused comments initially then verbalized being tired, can't go and wants to be left alone.
--- NOTE | 2021-04-29 14:05 | OT.IPNOTE ---
Attempted to see pt for OT treatment. FIRE SAFETY INSPECTOR states just got her back to bed. Pt states not wanting therapists to work with her and that she just wanted to rest. Therefore check on pt tomorrow for OT .
--- NOTE | 2021-04-29 17:13 | CM.DPC ---
DCP/continued: Reviewed chart. Received call from [facility] re: acceptance. Facility reports that they cannot accommodate this patient due to her cognitive function. Per CM team notes multiple SNF's have declined. Dr. Yanez updated. INTERNET ASSESSOR notified therapy that patient most likely will need to d/c home with HH for therapy. INTERNET ASSESSOR met with patient and son/DPOA at bedside explained role. Notified son that CM team currently unable to locate accepting SNF due to patient's current cognition and dependence on son. Son reports that he works? unclear at this time if that is out of the residence? Son upset about current d/c plan. INTERNET ASSESSOR to meet with family in AM on 04-30-21 to discuss further d/c planning. P: Pending. SWETA [place] Discharge Planning/Care Management Discharge Assessment Start: 04/24/21 12:40 Freq: Status: Active Protocol: Document 04/24/21 12:41 ITV (Rec: 04/24/21 12:43 ITV [id number]) Discharge Planning Assessment Advance Directives? No History Provided By Patient,Family Member,Medical Record Has Patient been admitted in last 30 No days? Prior Living Arrangements House Household Members family Comment lives with son James/BRI (James works daily) Type of transporation used prior to Relies on Others admit Independent with ADL's No Is patient alert and oriented? No DME Already Rented / Owned FWW / Walker Referrals Initiated Group Home Document 04/29/21 17:12 [facility] (Rec: 04/29/21 17:13 [facility] [id number]) Discharge Planning Assessment Assigned Water Engineer SWETA [place] Advance Directives? No History Provided By Patient,Family Member,Medical Record Has Patient been admitted in last 30 No days? Prior Living Arrangements House Household Members family Comment lives with son James/BRI (James works daily) Type of transporation used prior to Relies on Others admit Independent with ADL's No Is patient alert and oriented? No DME Already Rented / Owned FWW / Walker Barriers to Discharge Yes Referrals Initiated Group Home
[2021-04-29] MEDS: OXYCODONE IR 5 MG TABLET PO (17:23)
[2021-04-29 19:07] VITALS: PULSE 66; RESP 16; O2SAT 97
--- NOTE | 2021-04-29 19:32 | P.PN_ITS ---
Subjective Subjective Interval history: 80 y/o s/P hip surgery awaiting placement. due to the patients behavioral issues, she has been denied by multiple facilities. She appears comfortable and coorperative during the day, but has extreme behavioral decompensation at night Exam Vital Signs (past 8 hours): - 04/29/21 11:44 04/29/21 12:00 04/29/21 19:07 Temperature 97.6 F Pulse Rate 85 66 Respiratory Rate 16 16 Blood Pressure 143/67 H Pulse Oximetry 94 98 97 Oxygen Delivery Method Room Air Oxygen Flow Rate 0 Narrative Exam Narrative: Pleasant female in no acute distress Resp Other: Lungs clear to auscultation Cardio Other: Cardiac exam: Regular rate and rhythm normal S1-S2 GI Other: Abdomen soft nontender nondistended Extrem Other: Left hip with bruising, but no edema Objective Labs Result Diagrams: 04/27/21 05:55 04/27/21 05:55 [facility] Medical History Cancer of left breast Diabetes Hepatitis C Hip fracture History of prosthetic unicompartmental arthroplasty of both knees HTN (hypertension) Hyperlipidemia Left bundle branch block (LBBB) Non-small cell lung cancer Paroxysmal atrial fibrillation Port-A-Cath in place Right humeral fracture Surgical History History of carpal tunnel release Hx of cholecystectomy Hx of dilation and curettage Hx of tonsillectomy Hx of tubal ligation Social History household members: family Smoking Status: Former smoker alcohol intake: former Assessment & Plan Assessment & Plan narrative: femoral neck fracture, pathologic, acute, present on admission - Dr. Ocampo has consulted, placed intermedullary nail on 04/23. - plan for discharge to SNF when bed available, probably tomorrow, SNF discharged on hold as the patient's behavior is impacting her ability to be placed - pain seemingly controlled on current medications. 2. lung adenocarcinoma, right lung - no recent treatment. patient is s/p chemo and radiation per reports. CT imaging per son a few months ago showed no disease. CXR here with masslike consolidation of the RUL. - previous foot drop, recommended MRI in the past but patient did not wish to go per son. will see how she does with PT, may need imaging here if symptomatic. 3. HTN - elevated BP likely in setting of pain, continue home medications for now. 4. type 2 diabetes - a1c 5.2%, on metformin. Given her age and dementia stopped this medication. 5. HLD - continue home statin 6. paroxysmal atrial fibrillation - reported by son, not on blood thinner other than aspirin which the son states she takes only when she feels like it. Quality VTE Deep Vein Thrombosis/Pulmonary Embolism Present on Admission: No
[2021-04-29] MEDS: QUETIAPINE 25 MG TABLET 12.5 MG PO (20:34)
[2021-04-29] MEDS: ATORVASTATIN 20 MG TABLET 10 MG PO (20:34)
[2021-04-29 20:50] VITALS: BP 142/71; PULSE 86; RESP 17; TEMP 35.8; O2SAT 100
[2021-04-30 04:57] VITALS: BP 110/61; PULSE 62; RESP 14; TEMP 36.1; O2SAT 98
[2021-04-30 08:00] VITALS: BP 107/64; PULSE 66; RESP 14; TEMP 36.3; O2SAT 98
--- NOTE | 2021-04-30 08:49 | PM.PNPO.1 ---
Subjective Subjective Date Patient Seen: 04/30/21 Time Patient Seen: 08:50 Interval history: Patient states her hip pain is mild. She denies fevers, chills, night sweats. She denies nausea and vomiting. She is somewhat confused. There since been some difficulty finding SNF placement for her. The case management team is working on home placement versus SNF placement, due to her mental decompensation at night Exam Vital Signs (past 8 hours): - 04/30/21 04:57 04/30/21 08:00 Temperature 96.9 F L 97.4 F L Pulse Rate 62 66 Respiratory Rate 14 14 Blood Pressure 110/61 107/64 Pulse Oximetry 98 98 Oxygen Delivery Method Room Air Oxygen Flow Rate 0 Narrative Exam Narrative: Pleasant but forgetful 80-year-old female, resting comfortably in bed, no acute distress. She is alert and oriented x1. Her incision dressing is saturated. Calves are soft nontender to palpation. She is somewhat uncooperative with physical exam. Objective Labs Result Diagrams: 04/27/21 05:55 04/27/21 05:55 [facility] Medical History Cancer of left breast Diabetes Hepatitis C Hip fracture History of prosthetic unicompartmental arthroplasty of both knees HTN (hypertension) Hyperlipidemia Left bundle branch block (LBBB) Non-small cell lung cancer Paroxysmal atrial fibrillation Port-A-Cath in place Right humeral fracture Surgical History History of carpal tunnel release Hx of cholecystectomy Hx of dilation and curettage Hx of tonsillectomy Hx of tubal ligation Social History household members: family Smoking Status: Former smoker alcohol intake: former Assessment & Plan Post-op Postoperative Procedures: Procedures Operation Date: 04/23/21 18:30 Actual Procedure Side Surgeon p ORIF Hip/Intramedullary Hip Screw Left Kayden Ocampo MD Postoperative status narrative: Postoperative status narrative: Stable Postoperative plan narrative: Short cephalomedullary nail Postoperative plan narrative: Weight-bearing as tolerated left lower extremity. Lovenox for DVT prophylaxis. Mobilize with physical therapy Discharge to half-way facility, or home with home care if SNF unavailble, when medically stable per hospitalist. Follow-up with [facility] in 2 weeks. Quality VTE Deep Vein Thrombosis/Pulmonary Embolism Present on Admission: No
[2021-04-30] MEDS: atenoloL 50 MG TABLET PO ×2 (09:44→20:05)
[2021-04-30] MEDS: ENOXAPARIN 40 MG/0.4 ML SYRINGE SUBCUT (09:44)
[2021-04-30] MEDS: DOCUSATE 100 MG CAPSULE PO ×2 (09:45→20:04)
[2021-04-30] MEDS: ASPIRIN EC 81 MG TABLET PO (09:45)
[2021-04-30] MEDS: ACETAMINOPHEN 325 MG TABLET 650 MG PO ×3 (09:45→20:05)
--- NOTE | 2021-04-30 10:37 | OT.IP.TRT ---
Current Diagnoses Unspecified dementia without behavioral disturbance (04/23/21) Pathological fracture, left femur, initial encounter for fracture (04/23/21) Surgery Performed Operation Date: 04/23/21 18:30 Actual Procedures p ORIF Hip/Intramedullary Hip Screw(Left) - Kayden Ocampo MD Occupational Therapy Treatment Note M2 OT-IP Current Condition Start: 04/25/21 12:53 Freq: Status: Active Protocol: Document 04/25/21 12:14 [facility] (Rec: 04/25/21 13:21 [facility] [id number]) Occupational Therapy Current Condition Current Condition Evaluation Date 04/25/21 Treatment Diagnosis GLF, s/p Left femor fx/ s/p nailing, decreased mobility Diagnosis Onset Date 04/23/21 Weight Bearing Status Weight Bearing Status Weight Bear as Tolerated M3 OT- IP Subjective and Pain Start: 04/25/21 12:53 Freq: Status: Active Protocol: Document 04/30/21 12:02 [facility] (Rec: 04/30/21 12:19 [facility] [id number]) OT- Subjective Occupational Therapy Visit Type Type Treatment Note Visit Start Time 10:37 Visit Stop Time 11:06 Total Visit Minutes 29 Occupational Therapy Visit Comments Patient Comments Pt wanting to use the bathroom . PIPEFITTER WELDER present due to pt needing extensive assist for mobility needs and pt's son there for support. Patient/Caregiver Goals To go home. OT Pain Assessment Pain When Pain Assessed At Rest Pain Present Pain Present Denied Pain M4 OT- IP ADL's Start: 04/25/21 12:53 Freq: Status: Active Protocol: Document 04/30/21 12:02 [facility] (Rec: 04/30/21 12:19 [facility] [id number]) OT ADL-Dressing General Eval Lower Body Dressing Ability Maximum Assistance Comments OT Dressing Comments Assist for to ton brief over her feet and up over her hips with assist to stand to FWW. OT ADL-Toileting General Evaluation Toileting Ability Maximum Assistance Areas Needing Assistance Manage Clothing,Perform Perineal Hygiene Comments OT Toileting Comments Pt needing assist to wipe and for brief management while PIPEFITTER WELDER able to stand with pt with FWW. OT ADL-Bathing Comments OT Bathing Comments Sponge bath more appropriate at this time. M5 OT- IP IADL's Start: 04/25/21 12:53 Freq: Status: Active Protocol: Document 04/25/21 12:14 [facility] (Rec: 04/25/21 13:21 [facility] [id number]) OT-Instrumental Activities of Daily Living Deficits IADL Deficits Identified Deficits Home Safety Awareness Awareness of Need for Assistance at Home Decreased Awareness Ability to Problem Solve Emergency Unable to Problem Solve Situations Medication Management Medication Management Caregiver Administers Money Management Money Management Caregiver Provides Assistance Meal Preparation Meal Preparation Comments At this time pt will need assist. Degreaser Operator Degreaser Operator Comments At this time pt will need assist. Driving Driving Caregiver Provides Assist M6 OT- IP Functional Cognition Start: 04/25/21 12:53 Freq: Status: Active Protocol: Document 04/30/21 12:02 [facility] (Rec: 04/30/21 12:19 [facility] [id number]) Cognitive Factors Limiting Selfcare Function Cognitive Ability Level of Alertness Alert Patient Orientation Name Attention Span Ability Capable of Focused Attention, Unable to Focus Ability to Follow Commands Able to Follow One Step Commands with Increased Time, Able to Follow One Step Commands with Repetition Cognitive Comments Cognitive Assessment Comments Pt doing better to follow directions and commands. Pt's son in the room to provide encouragement. M7 OT- IP Mobility and Balance Start: 04/25/21 12:53 Freq: Status: Active Protocol: Document 04/30/21 12:02 [facility] (Rec: 04/30/21 12:19 [facility] [id number]) OT- Bed Mobility Assessment Supine to Sit Supine to Sit Assist Minimal Assistance,Head of Bed Elevated,Bedrails Scooting Scooting to Edge of Bed Contact Guard Assistance,1 Person Assistance OT-Transfer Assessment Sit to and From Stand Sit to and from Stand Moderate Assistance,2 Person Assistance Transfers Transfer Ability Maximum Assistance,2 Person Assistance Technique Transfer Destination Bed,Chair Transfer Technique Stand Step Pivot Devices Transfer Assistive Devices Gait Belt,Front Wheeled Walker Comments Mobility Comments Pt just needing KEVIN to assist to move her LLE to the edge of the bed and able to scoot to the edge of the bed with cues and CGA for PIPEFITTER WELDER. Sit to stand MODA X2 to FWW, MAX AX 2 for balance, guiding FWW and cues to move her feet. OT- Balance Assessment Sitting Balance and Reactions Static Sitting Balance Ability Good Dynamic Sitting Balance Ability Fair Standing Balance and Reactions Static Standing Balance Ability Poor M8 OT- IP Objective Assessments Start: 04/25/21 12:53 Freq: Status: Active Protocol: Document 04/25/21 12:14 [facility] (Rec: 04/25/21 13:21 [facility] [id number]) OT Gross Range of Motion Upper Extremity Range of Motion ROM Impairments WFL for transfers OT-Muscle Tone Assessment Muscle Tone WNL Yes M9 OT- IP Assessment and Plan Start: 04/25/21 12:53 Freq: Status: Active Protocol: Document 04/30/21 12:02 [facility] (Rec: 04/30/21 12:19 [facility] [id number]) OT Summary Assessment and Plan Potential Rehabilitation Potential Fair Analytic Complexity at Evaluation Moderate Summary OT Impairments Pain,Balance,Functional Cognition,Functional Mobility, Grooming,Dressing,Toileting, Bathing,Toilet Transfers, Shower Transfers,Activity Tolerance Progress Towards Goals Progressing Toward Goals,Slow Progress due to Pain Assessment Summary Pt cooperative especially when son is present for encouragement. Pt's son states that his mom started to have dropped foot 3-4 month ago and had her mom wear a support ankle brace and use of FWW. Able to pass information to the hospitalist . Pt will benefit from skilled rehab at this time or home with son pending caregiver training. Goals Grooming Goal Independent Dressing Goal Independent Toileting Goal Independent Bathing Goal Independent Toilet Transfer Goal Independent Shower Transfer Goal Independent Days to Meet Goals 30 Frequency of Treatment Frequency Of Treatment Once a Day Treatment Plan OT Treatment Plan ADL Training,Functional Cognition Training,Functional Mobility,Patient/Family Education,Discharge Planning Other Treatment Recommendations and Next caregiver training with son Treatment Focus Discharge Recommendations OT Discharge Recommendations SNF Rehab Other Discharge Recommendations Pending caregiver training possible home with 22/03 assist and home health . Transportation Needs at Discharge Wheelchair/Cabulance
--- NOTE | 2021-04-30 11:05 | PT.IPTN ---
Current Diagnoses Unspecified dementia without behavioral disturbance (04/23/21) Pathological fracture, left femur, initial encounter for fracture (04/23/21) Surgery Performed Operation Date: 04/23/21 18:30 Actual Procedures p ORIF Hip/Intramedullary Hip Screw(Left) - Kayden Ocampo MD Physical Therapy Treatment Note M2 PT-IP Current Condition Start: 04/24/21 12:49 Freq: NEEDED Status: Active Protocol: Document 04/24/21 10:10 AB (Rec: 04/24/21 13:01 AB [id number]) Physical Therapy Current Condition Current Condition Evaluation Date 04/24/21 Treatment Diagnosis GLF; L femur fx s/p nailing; difficulty in walking Onset Date 04/23/21 Weight Bearing Status Weight Bearing Status Weight Bear as Tolerated Allowed Weight Bearing Amount (enter % LLE WBAT or #) (%) M3 PT-IP Subjective Start: 04/24/21 12:49 Freq: NEEDED Status: Active Protocol: Document 04/30/21 10:36 SP (Rec: 04/30/21 13:16 SP [id number]) Subjective Physical Therapy Visit Type Type Treatment Note Visit Start Time 10:36 Visit Stop Time 11:05 Total Visit Minutes 29 Notes Son in room throughout tx providing encouragement of mobility, observed only. Son discussed pt's Umberto has ankle wrap donned bought her to help with stability due to rolling and sees is not able to move her ankle now, would like a better ankle support for her to allow safety moving on her feet. Son said it's been about 3-4 months since L ankle not supportive and saw physician for it but did not carry through with suggestions but didn't elaborate further. CoTx with OT for pt safety. Number of FACILITIES MANAGEMENT EXECUTIVE Visits 2 Physical Therapy Visit Comments Patient Comments Pt agreeable to working with therapy. Patient Goals unable to state Therapy Pain Assessment Pain When Pain Assessed During Mobility Pain Present Pain Present Pain Reported Location Left Hip Scale Used she can not describe Pain Behaviors Holding Area,[place] Pain Management Techniques Modification of Treatment,Re- positioning,Timing of Activity with Medications M4 PT-IP Mobility and Gait Start: 04/24/21 12:49 Freq: NEEDED Status: Active Protocol: Document 04/30/21 10:36 SP (Rec: 04/30/21 13:16 SP [id number]) PT-Bed Mobility Assessment Supine to Sit Supine to Sit Contact Guard Assistance, Minimal Assistance,Head of Bed Elevated Scooting Scooting to Edge of Bed Contact Guard Assistance PT-Transfer Assessment Sit to and From Stand Sit to and from Stand Maximum Assistance,2 Person Assistance,Use of Upper Extremities Equipment Transfer Assistive Device Gait Belt,Front Wheeled Walker Orthotic/Prosthetic Devices or Brace: No Transfers Transfer Destination Chair,Bedside Commode Transfer Technique Stand Step Pivot Transfer Ability Level of Assist Maximum Assistance,2 Person Assistance Comments Mobility Comments Elevated Supine> sit, scoot to EOB with cues for 1 step direction tasks Min> CGA, uses BUE to reposition LLE when needed. She is able to sit unsupported at EOB. Sit>stand Max A x2, difficulty transitioning LLE, pt works best motor planning pushing downward from FWW at this time , able scoot slide RLE demonstrated NWB- TTWB on LLE using FWW Max A x2 to R bed > BSC with Max A for FWW repositioning. She required assist for brief mgt, Max A for decent to commode. Pt ok to sit on commode sBA using backrest and arm rests for support. Pt unable to void. Scoot, Sit> stand from BSC Max A x2 then Max A x1, CGA- M in A x1 for standing balance while assisting pericare and brief mgt before requiring sit rest. Sit>stand Max A x2 using FWW, unsuccessful 1st SPT BSC> chair, required education and demonstration for upright posture and downward pressure to perform step pivot with improved RLE clearance and LLE WB with heavy BUE WB on FWW, BSC to chair to R and mod- Max A for FWW repositioning. Max A for slow descent into chair. Dependent to scoot back in chair. Elevated pt's LEs, donned chair alarm and call light with all needs in reach before left. Son in room. Gait Assessment Comments Gait Comments Step pivot using FWW Max A x2 with Max A for FWW repositioning, pt is unable to DF L ankle and scared LLE is not supportive with pain during WB but able to progress WB BSC to chair with heavy WB on FWW and cues for tall posture step to patterning improved RLE foot clearance vs lateral scoot. PT-Balance Assessment Sitting Balance and Reactions Static Sitting Balance Ability Good Dynamic Sitting Balance Ability Fair Standing Balance and Reactions Static Standing Balance Ability Poor Dynamic Standing Balance Ability Poor Device Used FWW Functional Assessments Other Functional Tests Performed She demonstrates good sitting balance at EOB CGA for safety. M5 PT-IP Objective Assessments Start: 04/24/21 12:49 Freq: NEEDED Status: Active Protocol: Document 04/24/21 10:10 AB (Rec: 04/24/21 13:01 AB [id number]) Orientation Orientation/Cognition Level of Alertness Confusional State Orientation Name Safety Awareness Decreased Safety Awareness Memory Description Short Term Impaired,Longterm Impaired Gross Range of Motion Lower Extremity ROM Assessment Within Functional Limits Strength Lower Extremity Strength Assessment Bilaterally Impaired Comments Strength Comments RLE: 3+/5 LLE: 2+/5 Muscle Tone Muscle Tone WNL Yes M6 PT-IP Treatment Start: 04/24/21 12:49 Freq: NEEDED Status: Active Protocol: Document 04/30/21 10:36 SP (Rec: 04/30/21 13:16 SP [id number]) Physical Therapy Treatment Exercises Exercises Ankle Pumps,Seated Knee Flexion/Extension Education Education Provided Weight Bearing Status,Safety Other Treatments Other Treatment Performed Pt initial LLE LAQ cue demonstrated hip flexion, then with visual able to perform LAQ seated on BSC partial range x2 reps only, brief muscle initiation MTP extension but unable to move through range with out max A. Pt unable to perform L ankle PF with MTPs supported on floor. M7 PT-IP Assessment and Plan Start: 04/24/21 12:49 Freq: NEEDED Status: Active Protocol: Document 04/30/21 10:36 SP (Rec: 04/30/21 13:16 SP [id number]) PT Summary Assessment and Plan Potential Rehabilitation Potential Fair Status of Condition at Evaluation Evolving Summary Impairments Pain,ROM,Strength,Balance, Cognition,Bed Mobility, Transfers,Gait,Activity Tolerance Progress Towards Goals Slow Progress due to Pain,Slow Progress due to Activity Tolerance,Slow Progress - Other Assessment Summary Elevated Supine>sit CG- Min A, scoot to EOB CGA with cuing for motor planning. Sit<>stand and step pivot Max A x2 using FWW. Pt is not able to tolerated WB on LLE due to pain with noted foot drop, trace to Poor- L ankle DF/ PF with ankle wrap donned. Will continue to assess progress. Pt is not consistant in her mobility, recommending 2-3 person or mechanical lift with nursing for transfers. Recommending SNF for increased strength and functional mobility. Goals Bed Mobility Goal Minimal Assistance Transfer Goal Minimal Assistance,Front Wheeled Walker Gait Goal Minimal Assistance,Front Wheel Walker Gait Distance 50 Other Goals improve bed mobility, transfers to SBA using FWW improve ambulation using FWW 100 ft SBA Days to Meet Goals 10 Frequency of Treatment Frequency Of Treatment Twice a Day Treatment Plan Physical Therapy Treatment Plan Bed Mobility Training,Transfer Training,Gait Training, Therapeutic Exercise,Balance Retraining,Post Op Education, Discharge Planning,Hot or Cold Pack,Neuromuscular Re-ed, Coordination Retraining,Manual Therapy Other Recommendations and Next Treatment standing tolerance, transfers, Focus CGT with son during pm tx. Precautions Other Precautions LLE WBAT Recommendations To Nursing Amount of Assist Needed 1 Person Assist Discharge Recommendations PT Discharge Recommendations SNF Rehab Other Discharge Recommendations recommend side sitter if in w/ c for safety, otherwise stretcher. Transportation Needs at Discharge Wheelchair/Cabulance,Stretcher /Ambulance
--- NOTE | 2021-04-30 14:49 | PC.NURSE ---
Pt's son in room, discussing d/c options with DELVIN Flowers; pt is oriented to self-only; Coversite dressing applied to proximal wound, sharda intact and wound edges well approximated; pt swallows pills whole with thin liquid; 2-max asst
[2021-04-30 15:10] VITALS: BP 142/48; PULSE 73; RESP 16; TEMP 36.4; O2SAT 98
--- NOTE | 2021-04-30 15:10 | CM.DPNOTE ---
DCP: Met with James abraham. SWETA Hodges, as well. Son is overwhelmed, doesn't know what to do, he can take 2 weeks off work, but not sure if he can take care of her. Patient is Medicare, not Medicaid. Patient does not qualify for Medicaid, son indicated she brings in more than $2000.00 a day. Mentioned some memory care units. Son indicated that she could probably afford to stay at a facility for 6 months. Called [facility]. They are not accepting patients due to staffing issues. [facility] is in lock down due to COVID. [facility] stated that they are full. Spoke to Jordyn, junior linux administrator at [facility] in [place]. He indicated that they are tight on beds, but may be able to do a respite of 2 weeks minimum. Spoke to James abraham, and he gave permission to have Jordyn call him with details. Loren, who is political science research assistant with Jordyn asked some questions about patient. Confirmed that she can do home health there at facility for therapy, either with [facility] or [facility]. Other option is for patient to go home with home health. P: DCP to continue to find placement, and will work with ENVIRONMENTAL CONSTRUCTION ENGINEER to assist in discharge process. Kristie Luna, RN/Oven Loader
--- NOTE | 2021-04-30 15:12 | PT-IP ANOTE ---
Pt supine in bed with son and 2 CNAs in room providing warm blankets after just completing transferring from chair. Pt commented I am tired and stated pleasantly no while shaking her head, when asked about mobilizing with therapy. CNAs stated she still doesn't put much weight on her L leg but was able to do more. Pt agreeable to therapy coming back in the morning. RETAIL SPECIALIST spoke with son, has transfer chair, FWW and portable BSC at home if pt needs them but working on placement for her to go to get stronger, considering memory care if has the finances.
--- NOTE | 2021-04-30 18:29 | PC.NURSE ---
Pt in good spirit at the beginning of the shift when son here. Alert to self only, bed alarm on. Pt unable to use IS due to confusion/forgetgullness. Incision cover with Dressing CDI. Awating placement.
--- NOTE | 2021-04-30 19:40 | P.PN_ITS ---
Subjective Subjective Interval history: Patient is an 80-year-old female admitted to the hospital following a fall, patient suffered a hip fracture. She underwent surgical repair. Patient has been doing quite well. However she continues to have dementia with behavioral disturbance and has been difficult to place as a result. She is delightful at this time. Has no complaints of pain Exam Vital Signs (past 8 hours): - 04/30/21 15:10 Temperature 97.5 F L Pulse Rate 73 Respiratory Rate 16 Blood Pressure 142/48 H Pulse Oximetry 98 Oxygen Delivery Method Room Air Oxygen Flow Rate 0 Narrative Exam Narrative: Pleasant female resting comfortably in no distress Resp Other: Lungs clear to auscultation Cardio Other: Cardiac exam: Regular rate rhythm normal S1-S2 with a 2/6 systolic ejection murmur GI Other: Abdomen soft nontender nondistended Extrem Other: Extremity bruising along the left hip, dressing is dry Objective Labs Result Diagrams: 04/27/21 05:55 04/27/21 05:55 [facility] Medical History Cancer of left breast Diabetes Hepatitis C Hip fracture History of prosthetic unicompartmental arthroplasty of both knees HTN (hypertension) Hyperlipidemia Left bundle branch block (LBBB) Non-small cell lung cancer Paroxysmal atrial fibrillation Port-A-Cath in place Right humeral fracture Surgical History History of carpal tunnel release Hx of cholecystectomy Hx of dilation and curettage Hx of tonsillectomy Hx of tubal ligation Social History household members: family Smoking Status: Former smoker alcohol intake: former Assessment & Plan Assessment & Plan narrative: ?femoral neck fracture, pathologic, acute, present on admission ?- Dr. Ocampo has consulted, placed intermedullary nail on 04/23. ?- plan for discharge to SNF when bed available, probably tomorrow, SNF discharged on hold as the patient's behavior is impacting her ability to be placed ?- pain seemingly controlled on current medications. 2. lung adenocarcinoma, right lung ?- no recent treatment. patient is s/p chemo and radiation per reports. CT imaging per son a few months ago showed no disease. CXR here with masslike consolidation of the RUL. ?- previous foot drop, recommended MRI in the past but patient did not wish to go per son. will see how she does with PT, may need imaging here if symptomatic. 3. HTN ?- elevated BP likely in setting of pain, continue home medications for now. 4. type 2 diabetes ?- a1c 5.2%, on metformin. Given her age and dementia stopped this medication. 5. HLD ?- continue home statin 6. paroxysmal atrial fibrillation ?- reported by son, not on blood thinner other than aspirin which the son states she takes only when she feels like it. 7. Placement social work working with family to find a locked geropsych unit given her significant dementia. Time Spent With Patient Critical Care time: I spent a total of [] minutes of critical care time on this patient's care today; this time is exclusive of procedural time. Quality VTE Deep Vein Thrombosis/Pulmonary Embolism Present on Admission: No
[2021-04-30] MEDS: QUETIAPINE 25 MG TABLET 12.5 MG PO (20:06)
[2021-04-30 23:00] VITALS: RESP 16
[2021-05-01] MEDS: OXYCODONE IR 5 MG TABLET PO (02:15)
--- NOTE | 2021-05-01 07:38 | PC.NURSE ---
Patient is sleeping, bed alarm activated, and call light within reach.
--- NOTE | 2021-05-01 08:59 | PM.PNPO.1 ---
Subjective Subjective Date Patient Seen: 05/01/21 Time Patient Seen: 08:59 Interval history: Patient states she is doing well overall and is in no discomfort at rest. She is unable to recall her recent surgery that she had on 04/23/2021 patient is without complaints at the moment. Denies fever, chills, nausea, chest pain, shortness of breath. She states that she is tired and feels irritated and agitated. Exam Vital Signs (past 8 hours): Oxygen Delivery Method Room Air Oxygen Flow Rate 0 Narrative Exam Narrative: 80-year-old female postop day 8 status post left hip short cephalomedullary nail. Patient is resting comfortably in bed, is in no acute distress and is alert and oriented x1. Skin is warm and dry, and the skin surrounding the incision site is free of erythema, warmth, induration, or discharge. Ecchymosis appreciated over the lateral aspect of the left proximal thigh. Tenderness to palpation appreciated over the anterior left thigh. Good sensation appreciated throughout the bilateral lower extremities to light touch. Gross motor function intact throughout the bilateral lower extremities. Calves are soft and nontender, negative Homans sign. No signs of DVT appreciated. Exam slightly limited due to patient's confusion. Const General: cooperative, healthy appearing and comfortable Resp Effort & Inspection: normal respiratory effort and able to speak in complete sentences Skin General: no rashes or lesions noted Objective Labs Result Diagrams: 04/27/21 05:55 04/27/21 05:55 [facility] Medical History Cancer of left breast Diabetes Hepatitis C Hip fracture History of prosthetic unicompartmental arthroplasty of both knees HTN (hypertension) Hyperlipidemia Left bundle branch block (LBBB) Non-small cell lung cancer Paroxysmal atrial fibrillation Port-A-Cath in place Right humeral fracture Surgical History History of carpal tunnel release Hx of cholecystectomy Hx of dilation and curettage Hx of tonsillectomy Hx of tubal ligation Social History household members: family Smoking Status: Former smoker alcohol intake: former Assessment & Plan Post-op Postoperative Procedures: Procedures Operation Date: 04/23/21 18:30 Actual Procedure Side Surgeon p ORIF Hip/Intramedullary Hip Screw Left Kayden Ocampo MD Postoperative day: 8 Postoperative status: doing well Postoperative plan: ambulate Postoperative plan narrative: Patient is to continue working on ambulation with the assistance of a front wheeled walker with physical therapy. Patient is currently being monitored by Medicine for patient's chronic conditions including diabetes and paroxysmal atrial fibrillation. Plan initially was for patient to be transferred to correction facility. However, due to the patient's behavior and mental decompensation is worse at night placement at a correction facility has been difficult. Social work has been working with family to find a locked geropsych unit given her significant dementia. Patient will be cleared for transfer to facility once an accepting facility presents and she has been cleared by Medicine. Quality VTE Deep Vein Thrombosis/Pulmonary Embolism Present on Admission: No
[2021-05-01] MEDS: ACETAMINOPHEN 325 MG TABLET 650 MG PO (10:47)
[2021-05-01] MEDS: ASPIRIN EC 81 MG TABLET PO (10:47)
[2021-05-01 10:49] VITALS: BP 140/66; PULSE 93; RESP 16; O2SAT 99
[2021-05-01] MEDS: atenoloL 50 MG TABLET PO (10:49)
[2021-05-01] MEDS: ENOXAPARIN 40 MG/0.4 ML SYRINGE SUBCUT (10:49)
[2021-05-01] MEDS: DOCUSATE 100 MG CAPSULE PO (10:49)
--- NOTE | 2021-05-01 11:06 | PM.DS.1 ---
History of Present Illness History of Present Illness Date Patient Seen: 05/01/21 Time Patient Seen: 09:30 Chief complaint: GLF Lt. hip pain Narrative: This is an 80-year-old female with a past medical history of stage III lung adenocarcinoma status post chemo and radiation, breast cancer, hypertension, dementia, hepatitis-C, diabetes, paroxysmal atrial fibrillation, and hyperlipidemia who presented after a ground level fall complaining of left hip pain. History regarding her fall is currently unable to be obtained given the patient's dementia, and inability to recall the event. She currently complains of left hip pain, but frequently talks with vague generalities, does not remember her fall. Talked with the son and the patient reports that her mental status and cognition waxes and wanes but this is fairly consistent with her usual self. He reports that she does all of her bathing and generally takes care of herself. She uses a walker at baseline. He has tried to get help at home but the patient was resistant to help. The son states that her mobility is limited with a walker, but she does not complain of shortness of breath, leg swelling. He does not believe she has had any recent chest pain, and denies any recent nausea, vomiting, diarrhea. In the emergency room, the patient was mildly hypertensive, her o2 is documented at 84% on room air, unclear circumstances regarding this. She is now 97% on room air on arrival to the floor. Laboratory evaluation including CBC and CMP were largely unremarkable. COVID-19 testing was negative. EKG showed a left bundle branch block, with sinus bradycardia with no grossly apparent changes compared to 2017 though her probable LVH is more notable on this EKG. Hip imaging revealed a left femoral intertrochanteric fracture. Chest x-ray performed showed a right upper lobe masslike consolidation consistent with her history of lung adenocarcinoma. Orthopedic surgery was consulted in the emergency room Family history: unable to review given patient's dementia. Discharge Providers Provider Date of admission: 04/23/21 16:05 Discharge Date: 05/01/21 Primary care physician: Kong Centeno DO Consults: 04/23/21 21:31 Consult to Discharge Planning Routine Comment: Consult to Discharge Planning Routine Comment: Consult to Physical Therapy Evaluate & Treat Comment: Physician Instructions: Evaluate and Treat Consult to Physical Therapy Evaluate & Treat Comment: Physician Instructions: post op RORY protocol Consult to Respiratory Therapy Evaluate & Treat Comment: Physician Instructions: Evaluate and treat Consult to Respiratory Therapy Evaluate & Treat Comment: Physician Instructions: Evaluate and treat 04/24/21 12:09 Consult to Occupational Therapy Evaluate & Treat Comment: Physician Instructions: Evaluate and treat Discharge provider: Osmar Laird DO Summary Hospital Course Discharge Diagnosis: 1. femoral neck fracture, pathologic, acute, present on admission ?- Dr. Ocampo has consulted, placed intermedullary nail on 04/23. ?- plan for discharge to SNF when bed available, probably tomorrow, SNF discharged on hold as the patient's behavior is impacting her ability to be placed ?- pain seemingly controlled on current medications. 2. lung adenocarcinoma, right lung 3. HTN 4. type 2 diabetes 5. HLD 6. paroxysmal atrial fibrillation 7. Dementia with behavioral disturbance Hospital Course: This is an 80-year-old female with a past medical history of dementia with behavioral disturbance, paroxysmal atrial fibrillation, hyperlipidemia, type 2 diabetes, hypertension, and lung cancer status post chemo and radiation who suffered a fall and as result had a left femoral neck fracture. She underwent intramedullary nail placement on 04/23/21. She had an uncomplicated postoperative course, finding an accepting facility was difficult due to the patient's advanced dementia. Ultimately she was [facility]. Only other medication change to note is that her metformin had been stopped due to an A1c of 5.2 given her advanced age. She was also noted to have a mass in her right upper lobe on chest x-ray and recommend follow-up with her oncologist as previously scheduled for review. Time Spent with Patient Time spent: Greater than 30 minutes Exam Vital Signs (past 8 hours): - 05/01/21 10:49 Pulse Rate 93 H Respiratory Rate 16 Blood Pressure 140/66 Pulse Oximetry 99 Oxygen Delivery Method Room Air Oxygen Flow Rate 0 Narrative Exam Narrative: GENERAL APPEARANCE: confused elderly female, but slightly more alert than prior exams, no acute distress. SKIN: Inspection of the skin reveals no rashes, ulcerations or petechiae. HEENT:? Normocephalic atraumatic, extraocular muscles are intact, oropharynx is clear and mucous membranes are moist, neck is supple without adenopathy NECK: Supple and symmetric. There was no thyroid enlargement, and no tenderness, or masses were felt. LUNGS: Auscultation of the lungs revealed no wheezes, rhonchi, or rales. CARDIOVASCULAR: There was a regular rate and rhythm without any murmurs, gallops, rubs. Peripheral pulses were 2+ and symmetric. ABDOMEN: Soft, nontender, and nondistended MUSCULOSKELETAL:? left hip dressing c/d/i. EXTREMITIES: No cyanosis, clubbing or edema.? No joint effusions. NEUROLOGIC:? Oriented to name only, pleasantly confused.? Follows commands, no obvious focal deficits. Objective Labs Result Diagrams: 04/27/21 05:55 04/27/21 05:55 [facility] Medical History Cancer of left breast Diabetes Hepatitis C Hip fracture History of prosthetic unicompartmental arthroplasty of both knees HTN (hypertension) Hyperlipidemia Left bundle branch block (LBBB) Non-small cell lung cancer Paroxysmal atrial fibrillation Port-A-Cath in place Right humeral fracture Surgical History History of carpal tunnel release Hx of cholecystectomy Hx of dilation and curettage Hx of tonsillectomy Hx of tubal ligation Social History household members: family Smoking Status: Former smoker alcohol intake: former Discharge Plan Discharge Plan Patient Disposition: Home Health Service Provider Discharge Comment: Patient admitted to the hospital with a left femoral fracture. Underwent surgical repair with orthopedics. Unable to find SNF plan for discharge home today. Metformin discontinued given well controlled A1. Continue home pain control with tylenol. Follow up with orthopedics as an outpatient. Discharge orders & Medications Prescriptions: Continued Fluticasone Propionate (FLONASE) 0.05 mg NS PRN PRN (Reason: Allergy Symptoms) Qty: 0 RF: 0 MULTIVITAMIN (#MULTIPLE VITAMINS) 1 cap PO Q DAY Qty: 0 RF: 0 acetaminophen [Tylenol Extra Strength] 500 MG tablet 500 mg PO Q4HP PRN (Reason: pain) Qty: 0 RF: 0 doxepin 100 MG capsule 100 mg PO HS Qty: 0 RF: 0 simvastatin 20 MG tablet 20 mg PO HS Qty: 0 RF: 0 aspirin 81 MG tablet,delayed release (DR/EC) 81 mg PO QDAY PRN (Reason: minor pains) Qty: 0 RF: 0 albuterol sulfate [Ventolin HFA] 90 MCG/PUFF HFA aerosol inhaler 1 puff INH Q4H PRN (Reason: Allergy Symptoms) RF: 0 atenolol 50 mg Tablet 50 mg PO BID Qty: 90 RF: 0 Discontinued metformin [Glucophage] 500 MG tablet 500 mg PO BIDCC Qty: 0 RF: 0 Follow up/Referrals: Kayden Ocampo MD [Physician] - (10-14 days for postoperative follow-up visit) Kong Centeno DO [Primary Care Provider] - Diet/Activity/Treatments Diet: Diet as Tolerated Activity: As tolerated Visit Report/Discharge Packet Instructions: How to Prevent Falls, DI for Open Reduction Internal Fixation Surgery Stand Alone Forms: Surgery Discharge Discharge Data Primary Care Provider: Kong Centeno Quality VTE Deep Vein Thrombosis/Pulmonary Embolism Present on Admission: No
--- NOTE | 2021-05-01 11:55 | OT.IP.TRT ---
Current Diagnoses Unspecified dementia without behavioral disturbance (04/23/21) Pathological fracture, left femur, initial encounter for fracture (04/23/21) Surgery Performed Operation Date: 04/23/21 18:30 Actual Procedures p ORIF Hip/Intramedullary Hip Screw(Left) - Kayden Ocampo MD Occupational Therapy Treatment Note M2 OT-IP Current Condition Start: 04/25/21 12:53 Freq: Status: Active Protocol: Document 04/25/21 12:14 [facility] (Rec: 04/25/21 13:21 [facility] [id number]) Occupational Therapy Current Condition Current Condition Evaluation Date 04/25/21 Treatment Diagnosis GLF, s/p Left femor fx/ s/p nailing, decreased mobility Diagnosis Onset Date 04/23/21 Weight Bearing Status Weight Bearing Status Weight Bear as Tolerated M3 OT- IP Subjective and Pain Start: 04/25/21 12:53 Freq: Status: Active Protocol: Document 05/01/21 10:55 [facility] (Rec: 05/01/21 12:45 [facility] [id number]) OT- Subjective Occupational Therapy Visit Type Type Treatment Note Visit Start Time 10:55 Visit Stop Time 11:55 Total Visit Minutes 60 Occupational Therapy Visit Comments Patient Comments Pt wanting to use the BSC and son present to go over caregiver training. Patient/Caregiver Goals Pt wants to go home. OT Pain Assessment Pain When Pain Assessed At Rest Pain Present Pain Present Denied Pain M4 OT- IP ADL's Start: 04/25/21 12:53 Freq: Status: Active Protocol: Document 05/01/21 10:55 [facility] (Rec: 05/01/21 12:45 [facility] [id number]) OT QBO-[id number]-Yxoyglw Comments OT Self-Feeding Comments NOt at meal time. OT ADL-Grooming General Evaluation Grooming Ability Standby Assistance Areas Needing Assistance Retrieving/Set-up of Grooming Items OT ADL-Toileting General Evaluation Toileting Ability Maximum Assistance Areas Needing Assistance Manage Clothing,Perform Perineal Hygiene Comments OT Toileting Comments Initially able to scoot pt forwards and able to wipe on her own for the front and then able to do some from behind as had a bowel movement. However pt then got feces on her hands and did not realize it and therefore had nursing aid assist for completeness. Pt's son states has an elongated BSC and would be able to reach to assist her better at home. ALso spoke on option of getting a bidet. Also suggested use of wipes, disposable briefs, and gowns to wear to increase ease to assist pt. Strongly suggested pt to have home health at home to assist. OT ADL-Bathing Comments OT Bathing Comments Sponge bath more appropriate at this time. M5 OT- IP IADL's Start: 04/25/21 12:53 Freq: Status: Active Protocol: Document 04/25/21 12:14 [facility] (Rec: 04/25/21 13:21 [facility] [id number]) OT-Instrumental Activities of Daily Living Deficits IADL Deficits Identified Deficits Home Safety Awareness Awareness of Need for Assistance at Home Decreased Awareness Ability to Problem Solve Emergency Unable to Problem Solve Situations Medication Management Medication Management Caregiver Administers Money Management Money Management Caregiver Provides Assistance Meal Preparation Meal Preparation Comments At this time pt will need assist. Evp Evp Comments At this time pt will need assist. Driving Driving Caregiver Provides Assist M6 OT- IP Functional Cognition Start: 04/25/21 12:53 Freq: Status: Active Protocol: Document 05/01/21 10:55 [facility] (Rec: 05/01/21 12:45 [facility] [id number]) Cognitive Factors Limiting Selfcare Function Cognitive Ability Level of Alertness Alert,Confusional State Patient Orientation Name Attention Span Ability Capable of Focused Attention, Unable to Focus Ability to Follow Commands Able to Follow One Step Commands with Increased Time, Able to Follow One Step Commands with Repetition Cognitive Comments Cognitive Assessment Comments Pt tangential in her train of thoughts , however her son able to effectively communicate with her. M7 OT- IP Mobility and Balance Start: 04/25/21 12:53 Freq: Status: Active Protocol: Document 05/01/21 10:55 [facility] (Rec: 05/01/21 12:45 [facility] [id number]) OT- Bed Mobility Assessment Supine to Sit Supine to Sit Assist Maximum Assistance,1 Person Assistance Sit to Supine Sit to Supine Assist Moderate Assistance,1 Person Assistance OT-Transfer Assessment Sit to and From Stand Sit to and from Stand Maximum Assistance,1 Person Assistance Transfers Transfer Ability Maximum Assistance,Total Assistance,1 Person Assistance Technique Transfer Destination Bed,Bedside Commode,Chair Transfer Technique Stand Step Pivot Devices Transfer Assistive Devices None,Gait Belt Comments Mobility Comments Pt's son able to use green pad to assist to get her hips to the edge of the bed and then had pt use right hand to pull up on her son's arm to get up. Educated pt's son on use of gait belt, able to stand pt and pivot to the right to the commode. Pt got tired and fatigued as having to sit on the BSC for awhile due to having difficulty to have a bowel movement. Therapist able to show pt's son transfer to the left. Best to block pt's left knee and pivot and asist to more her left foot with therapist's feet. In addition pt able to hold to therapists arms to assist as well. Son will benefit from more caregiver training. OT- Gait Assessment Comments Gait Ability Comments Not at this time. OT- Balance Assessment Sitting Balance and Reactions Static Sitting Balance Ability Good Dynamic Sitting Balance Ability Fair Standing Balance and Reactions Static Standing Balance Ability Poor M8 OT- IP Objective Assessments Start: 04/25/21 12:53 Freq: Status: Active Protocol: Document 04/25/21 12:14 [facility] (Rec: 04/25/21 13:21 [facility] [id number]) OT Gross Range of Motion Upper Extremity Range of Motion ROM Impairments WFL for transfers OT-Muscle Tone Assessment Muscle Tone WNL Yes M9 OT- IP Assessment and Plan Start: 04/25/21 12:53 Freq: Status: Active Protocol: Document 05/01/21 10:55 [facility] (Rec: 05/01/21 12:45 [facility] [id number]) OT Summary Assessment and Plan Potential Rehabilitation Potential Fair Analytic Complexity at Evaluation Moderate Summary OT Impairments Pain,Balance,Functional Cognition,Functional Mobility, Grooming,Dressing,Toileting, Bathing,Toilet Transfers, Shower Transfers,Activity Tolerance Progress Towards Goals Progressing Toward Goals,Slow Progress due to Pain,Slow Progress due to Cognition Assessment Summary Initiated caregiver training with pt's son for mobility and ADl needs. Pt's son states already has picked up transport chair, lift chair, bsc, and FWW. If pt going home, pt would benefit from home health and pt agreed would be helpful. However, pt's son states most likely she will refuse. Pt's son would also benefit from another peron to assist at times. Pt's son states his brother may be there to assist at times. Pt would still greatly benefit from skilled rehab but has been unable to find placement at this time. Goals Grooming Goal Independent Dressing Goal Independent Toileting Goal Independent Bathing Goal Independent Toilet Transfer Goal Independent Shower Transfer Goal Independent Days to Meet Goals 30 Frequency of Treatment Frequency Of Treatment Once a Day Treatment Plan OT Treatment Plan ADL Training,Functional Cognition Training,Functional Mobility,Patient/Family Education,Discharge Planning Other Treatment Recommendations and Next caregiver training with son Treatment Focus Discharge Recommendations OT Discharge Recommendations SNF Rehab Other Discharge Recommendations Pending caregiver training possible home with 24/7 assist . Transportation Needs at Discharge Wheelchair/Cabulance
--- NOTE | 2021-05-01 12:18 | CM.DPNOTE ---
Addendum entered by SWETA Hoffmann 05/01/21 15:18: Pablo from [facility] completed bedside assessment as scheduled and instructed son James to wait to hear from them re: bed availability and acceptance to their facility. Meanwhile, returned to patient's room, reviewed DCP w/son James. Son appeared agitated, this BIODIESEL PROCESSING TECHNICIAN asked how we could help in coordination of DCP? Discussed home health services and hospice services. Son turned to patient and asked what she wanted to do ? Patient asked if they are trying to cut my hand off and take that? They can if they'd like Son agreeable to HH, no agency preference. [facility]able to [facility] for follow up. IMM provided. Son requested that this BIODIESEL PROCESSING TECHNICIAN speak w/ a licensed master social worker he had on the phone that works for [facility] [facility]...this licensed master social worker requests that patient have more time (in the hospital) so she can help secure additional assistance for this family. Educated this licensed master social worker that patient was medically cleared, SNF options had been attempted, and son agreeable to taking his mom home, strongly encouraged said licensed master social worker to continue efforts to secure outpatient resources for this family. Referral faxed to [facility] for HH RN/PT/OT/SUPERVISOR MILL/BIODIESEL PROCESSING TECHNICIAN, 24 hr f/u available. Plan: DC home w/family, [facility] Original Note: DCP Note Reviewed chart. Dr Laird has completed DC order for home w/son and HH. Spoke w/Pablo (female) from [facility] [place] she is planning on completing bedside assessment today at 1200, son James aware and is planning on being present. Updated RN Robert Spoke w/son James when he arrived this morning, discussed DC order. Son appears upset and concerned about taking his mom home, reviews concerns about patient not eating and patient wanting to . This BIODIESEL PROCESSING TECHNICIAN suggests hospice referral? Son says he will consider. Returned to patient's room to review IMM w/son and HYDROGRAPHER was completing cg training w/son, will return when son available to review DCP. Following closely. ELISEO
--- NOTE | 2021-05-01 14:08 | CM.DPNOTE ---
Faxed referral packet per Jacqueline to [facility] on 05/01/21 and received fax conf. Nasra Birch CM Asst.
--- NOTE | 2021-05-01 14:23 | PT-IP ANOTE ---
1423, pt son refused assist for car transfer and refused CG training for transfers stating doesn't need help. RN informed.
--- NOTE | 2021-05-01 14:47 | PC.NURSE ---
Patient was evaluated by Pablo at bedside today from [facility] in [place]. Patient's son Jesus, met with social psychologist, and aware of discharge order. Dressings changed to left side hip incision prior to discharge, and Krishnad instructed to ensure patient follows up with orthopedics in next 10-14 days. Incisions are intact with sharda and steri strips in place, without redness, surrounding purple and yellow bruising noted. Jesus told this RN he would not be waiting to hear from [facility] on their decision as they told me they don't even have any bed available for 3 days. And I am taking her home so the sooner the better. Paperwork discharge packet reviewed with Jesus, and he states he does not have any more questions. Jesus took a stack of paperwork that patient had and threw it in the trash stating this is useless. Jesus got his mom dressed and moved her into the wheelchair on his own, declined help. CLAM DREDGE BOAT CAPTAIN and RN escorted patient out via wheelchair and assisted patient into car, patient tolerated well. Denies pain and declines tylenol prior to leaving.
== END 2021-05-01 14:50 | disposition home or self-care (01) | DRG 481 ==
LOC: ED 15:53 → AC 16:05
PROVIDERS: Orthopaedic Surgery Adult Reconstructive Orthopaedic Surgery; Admitting Provider Internal Medicine; Emergency Provider Emergency Medicine; Family Provider Family Medicine; PCP Family Medicine; Referring Provider Emergency Medicine; Visit Provider Internal Medicine
PROC: 0QS736Z Reposition Left Upper Femur with Intramedullary Internal Fixation Device, Percutaneous Approach (ICD-10-PCS; CPT 27245; principal; 2021-04-23 18:30)
DX: M84.452A Pathological fracture, left femur, initial encounter for fracture (principal); C34.11 Malignant neoplasm of upper lobe, right bronchus or lung; F03.91 Unspecified dementia, unspecified severity, with behavioral disturbance; I10 Essential (primary) hypertension; E11.9 Type 2 diabetes mellitus without complications; E78.5 Hyperlipidemia, unspecified; I48.0 Paroxysmal atrial fibrillation; Z87.891 Personal history of nicotine dependence; M21.372 Foot drop, left foot; Z20.822 Contact with and (suspected) exposure to COVID-19
CPT/HCPCS: 36415; 51702; 71045; 72192; 73502; 76000; 80048; 80053; 81003; 82962; 83036; 85025; 85027; 87635; 93005; 94760; 97110; 97162; 97166; 97530; 97535; 99284; 99285; C9803; J0131; J0690; J1100; J1170; J1630; J1650; J2060; J2405; J2704; J3010